=== PATIENT | female | born 1985 | race Caucasian/White ===

== ENCOUNTER 2018-03-24 16:06 | Emergency (ER) | payer OTHER, SELFPAY ==
[2018-03-24] MEDS ORDERED: PROMETHAZINE 25 MG/ML VIAL ONE (16:46)
[2018-03-24] MEDS ORDERED: NA CHLORIDE 0.9% 1,000 ML ONE (16:47)
[2018-03-24] MEDS ORDERED: MORPHINE 4 MG/ML SYR ONE (16:47)
[2018-03-24 17:01] LABS: Absolute Lymphocytes (CBC) 1.9 K/uL (0.7-4.9); Absolute Monocytes 0.5 K/uL (0.1-1.3); Absolute Neutrophil 4.9 K/uL (1.8-8.0); Basophils % 0.8 % (0-1.3); Eosinophils % 2.4 % (0-4.4); Hematocrit 38.7 % (36.0-45.0); Lymphocytes % 25.6 % (15.3-44.8); MCH 27.1 pg (27.0-35.0); MCV 81.6 fL (80-100); MPV 9.6 fL (7.6-11.3); RBC Red Blood Cell Count 4.74 M/uL (3.86-4.86)
[2018-03-24] MEDS ORDERED: DIPHENHYDRAMINE 25 MG TAB/CAP ONE (17:04)
[2018-03-24] MEDS ORDERED: METOCLOPRAMIDE 10 MG/2mL INJ ONE (17:05)
[2018-03-24] MEDS ORDERED: FENTANYL CITR 100 MCG/2 ML ONE (17:05)
[2018-03-24 17:15] LABS: ALT/SGPT 35 U/L (12-78); AST/SGOT 20 U/L (15-37); Albumin 3.5 g/dL (3.4-5.0); Alkaline Phosphatase 82 U/L (45-117); BUN Blood Urea Nitrogen 13 mg/dL (7-18); Bicarbonate 27 mmol/L (21-32); Bilirubin Direct < 0.1 mg/dL (0-0.2); Bilirubin Total 0.2 mg/dL (0.2-1.0); Glucose Level 90 mg/dL (74-106); Lipase 105 U/L (73-393); Potassium 3.8 mmol/L (3.5-5.1); Protein, Total 8.1 g/dL (6.4-8.2); Sodium Level 139 mmol/L (136-145)
[2018-03-24 17:34] LABS: Urine Blood 1+ (NEG); Urine Glucose NEGATIVE (NEG); Urine Protein NEGATIVE (NEG); Urine Specific Gravity 1.025 (1.005-1.030)
[2018-03-24 17:46] LABS: Urine Bacteria 20-50 /HPF (<20); Urine Culture Reflex Order NOT NEEDED; Urine Mucus 1+ /HPF (NONE SEEN)
--- NOTE | 2018-03-24 17:52 | RAD REPORT ---
EXAM DESCRIPTION: CT - Abdomen Pelvis W Contrast - 03/24/2018 5:44 pm CLINICAL HISTORY: Several day history of diffuse abdominal pain with nausea, vomiting and diarrhea COMPARISON: No comparison imaging available. Patient indicates CT and ultrasound done at [facility] on 4 days earlier with no acute finding TECHNIQUE: Biphasic, helical CT imaging of the abdomen and pelvis was performed following 100 ml non -ionic IV contrast. Oral contrast was given. All CT scans are performed using dose optimization technique as appropriate and may include automated exposure control or mA/KV adjustment according to patient size. FINDINGS: No suspicious findings in the lung bases. The liver, spleen, and pancreas show no suspicious findings. Gallbladder and biliary tree are also wi thout suspicious finding. Symmetric renal function is seen with no hydronephrosis or suspicious renal mass. No pyelonephritis o r acute renal parenchymal process. Renal glands are unremarkable. Uterus, ovaries and bladder show no suspicious findings. No dilated bowel loops or bowel wall thickening. No appendicitis. No free air, free fluid or inflamma tory stranding. No mass or bulky lymphadenopathy. Patient has a very small fat only umbilical hernia . No acute bone finding. IMPRESSION: Contrast enhanced CT abdomen and pelvis showing no significant or suspicious finding.
[2018-03-24] MEDS ORDERED: KETOROLAC 30 MG/ML INJ ONE (18:03)
--- NOTE | 2018-03-24 18:33 | ER ---
Nurse's Notes [facility] Name: Vivek Chino Age: 33 yrs Sex: Female : 1985 Arrival Date: 03/24/2018 Time: 16:08 Bed 20 Private MD: Diagnosis: Gastroenteritis;Migraine Presentation: 03/24 16:12 Presenting complaint: Patient states: Since Sunday I have had N/V/D, I went to [place] [id number] on Sunday and had a [address] but they couldn't tell me anything, now the pain is worse and I am having a headache that is worse than the abd pain. Transition of care: patient was not received from another setting of care. Onset of symptoms was March 24, 2018. Risk Assessment: Do you want to hurt yourself or someone else? Patient reports no desire to harm self or others. Initial Sepsis Screen: Does the patient meet any 2 criteria? No. Patient's initial sepsis screen is negative. Does the patient have a suspected source of infection? No. Patient's initial sepsis screen is negative. Care prior to arrival: None. 16:12 Method Of Arrival: Ambulatory la1 16:12 Acuity: CARI 3 la1 Historical: - Allergies: 16:13 No Known Allergies; la1 - PMHx: 16:13 None; la1 - PSHx: 16:13 ; la1 - Immunization history:: Adult Immunizations up to date. - Social history:: Smoking status: Patient/guardian denies using tobacco. - Ebola Screening: : No symptoms or risks identified at this time. Screenin:55 Abuse screen: Denies threats or abuse. Nutritional screening: No deficits noted. em Tuberculosis screening: No symptoms or risk factors identified. Fall Risk None identified. Assessment: 16:55 General: Appears distressed, uncomfortable, obese, well developed, well nourished, em Behavior is calm, cooperative, Reports fever for feeling ill for. Pain: Complains of pain in abdomen diffusely and head Pain currently is 10 out of 10 on a pain scale. Neuro: Level of Consciousness is awake, alert, obeys commands, Oriented to person, place, time, situation, Reports headache photophobia. Cardiovascular: Denies chest pain, Capillary refill < 3 seconds Patient's skin is warm and dry. Respiratory: Airway is patent Respiratory effort is even, unlabored, Respiratory pattern is regular. GI: Abdomen is obese, Bowel sounds present X 4 quads. Abd is soft X 4 quads Abdomen is tender to palpation X 4 quads. Reports diarrhea, nausea, vomiting. : Urine is clear. EENT: No signs and/or symptoms were reported regarding the EENT system. Derm: Skin is intact, Skin is pink, warm \T\ dry. Musculoskeletal: Range of motion: intact in all extremities. 17:00 General: The previous assessment is accurate, call light remains within reach. . ss 17:35 Reassessment: Patient appears in no apparent distress at this time. pt wheeled to CT em via wheelchair. 17:50 Reassessment: c/o headache, medications did not work, rates headache 10/10, provider em notified, new medications orders received. 18:33 Reassessment: Patient appears in no apparent distress at this time. Patient and/or em family updated on plan of care and expected duration. Pain level reassessed. Patient is alert, oriented x 3, equal unlabored respirations, skin warm/dry/pink. rates 5/10 Patient states symptoms have improved. Vital Signs: 16:13 BP 140 / 100; Pulse 81; Resp 16; Temp 97.6; Pulse Ox 98% on R/A; Weight 145.15 kg; la1 Height 5 ft. 4 in. (162.56 cm); 17:05 BP 123 / 75; Pulse 70; Resp 18; Pulse Ox 100% on R/A; Pain 10/10; em 18:22 BP 126 / 72; Pulse 75; Resp 16; Pulse Ox 99% on R/A; Pain 5/10; em 16:13 Body Mass Index 54.93 (145.15 kg, 162.56 cm) la1 ED Course: 16:08 Patient arrived in ED. as 16:13 Triage completed. la1 16:13 Arm band placed on left wrist. la1 16:14 Brady Sherwood LVN is Primary Nurse. em 16:14 Christian Silverio PA is PHCP. jr8 16:14 Adryan Iraheta MD is Attending Physician. jr8 16:55 Patient has correct armband on for positive identification. Placed in gown. Bed in low em position. Adult w/ patient. 17:00 Initial lab(s) drawn, by me, sent to lab. Urine collected: clean catch specimen, clear. em Inserted saline lock: 22 gauge in right antecubital area, using aseptic technique. Blood collected. 17:25 Note: NEG UPT,PER MARIANNE CLERICAL SECRETARY. bq 17:44 CT completed. Patient moved to CT via wheelchair. Patient moved back from CT. cw1 17:44 CT Abd/Pelvis - W/Contrast In Process Unspecified. EDMS 18:32 Cedric Yung MD is Referral Physician. jr8 18:43 No provider procedures requiring assistance completed. IV discontinued, intact, em bleeding controlled, No redness/swelling at site. Pressure dressing applied. Administered Medications: 16:53 CANCELLED (Physician Discretion): Phenergan 12.5 mg IVP once jr8 16:53 Not Given (Physician Discretion): morphine 2 mg IVP once jr8 16:55 Drug: NS 0.9% 1000 ml Route: IV; Rate: 1000 ml; Site: right antecubital; em 18:46 Follow up: IV Status: Completed infusion; IV Intake: 1000ml em 17:02 Drug: fentaNYL (PF) 50 mcg Route: IVP; Site: right antecubital; ss 18:01 Follow up: Response: No adverse reaction; Pain is unchanged, physician notified em 17:02 Drug: Reglan 10 mg Route: IVP; Site: right antecubital; ss 18:02 Follow up: Response: No adverse reaction em 17:09 Drug: Benadryl 25 mg Route: PO; em 18:01 Follow up: Response: No adverse reaction em 18:01 Drug: TORadol 30 mg Route: IVP; Site: right antecubital; ss 18:33 Follow up: Response: No adverse reaction; Pain is decreased em Intake: 18:46 IV: 1000ml; Total: 1000ml. em Outcome: 18:32 Discharge ordered by . jr8 18:45 Discharged to home ambulatory, with family. em 18:45 Condition: good 18:45 Discharge instructions given to patient, family, Instructed on discharge instructions, follow up and referral plans. medication usage, Demonstrated understanding of instructions, follow-up care, medications, Prescriptions given X 3. 18:46 Patient left the ED. em Signatures: Dispatcher [employer] EDMS Rosette Trejo bq Brady Sherwood, THREAD MARKER THREAD MARKER Jo Eckert Shelby, RN RN ss Jocy Hoffman cw1 Christian Silverio PA PA jr8 Carroll Monsalve RN RN la1
--- NOTE | 2018-03-24 18:34 | EDPHYS ---
Physician Documentation [facility] Name: Vivek Chino Age: 33 yrs Sex: Female : 1985 Arrival Date: 03/24/2018 Time: 16:08 Bed 20 Private MD: ED Physician Adryan Iraheta HPI: 03/24 16:59 This 33 yrs old Female presents to ER via Ambulatory with complaints of jr8 Abdominal Pain, Nausea/Vomiting/Diarrhea. 16:59 The patient presents with abdominal pain that is diffuse. Onset: The symptoms/episode jr8 began/occurred acutely, 1 week(s) ago. The symptoms do not radiate. Associated signs and symptoms: Pertinent positives: nausea, vomiting, and diarrhea. The symptoms are described as crampy. Modifying factors: The symptoms are alleviated by nothing, the symptoms are aggravated by food. Severity of pain: At its worst the pain was moderate in the emergency department the pain is unchanged. The patient has not experienced similar symptoms in the past. The patient has been recently seen by a physician:. Seen at [place] ED and had blood work, CT, and US completed with no acute findings. Given tramadol and zofran for pain and nausea. Came to ED today for continued symptoms. Denies recent travel or sick contacts . Historical: - Allergies: 16:13 No Known Allergies; la1 - PMHx: 16:13 None; la1 - PSHx: 16:13 ; la1 - Immunization history:: Adult Immunizations up to date. - Social history:: Smoking status: Patient/guardian denies using tobacco. - Ebola Screening: : No symptoms or risks identified at this time. ROS: 16:59 Eyes: Negative for injury, pain, redness, and discharge, ENT: Negative for injury, jr8 pain, and discharge, Neck: Negative for injury, pain, and swelling, Cardiovascular: Negative for chest pain, palpitations, and edema, Respiratory: Negative for shortness of breath, cough, wheezing, and pleuritic chest pain, Back: Negative for injury and pain, MS/Extremity: Negative for injury and deformity, Skin: Negative for injury, rash, and discoloration, Neuro: Negative for headache, weakness, numbness, tingling, and seizure. 16:59 Abdomen/GI: Positive for abdominal pain, nausea, vomiting, and diarrhea, abdominal cramps, Negative for abdominal distension, anorexia, dysphagia, hematemesis, black/tarry stool, rectal pain, rectal bleeding, bowel incontinence, flatulence. Exam: 17:00 Eyes: Pupils equal round and reactive to light, extra-ocular motions intact. Lids and jr8 lashes normal. Conjunctiva and sclera are non-icteric and not injected. Cornea within normal limits. Periorbital areas with no swelling, redness, or edema. ENT: Nares patent. No nasal discharge, no septal abnormalities noted. Tympanic membranes are normal and external auditory canals are clear. Oropharynx with no redness, swelling, or masses, exudates, or evidence of obstruction, uvula midline. Mucous membranes moist. Neck: Trachea midline, no thyromegaly or masses palpated, and no cervical lymphadenopathy. Supple, full range of motion without nuchal rigidity, or vertebral point tenderness. No Meningismus. Cardiovascular: Regular rate and rhythm with a normal S1 and S2. No gallops, murmurs, or rubs. Normal PMI, no JVD. No pulse deficits. Respiratory: Lungs have equal breath sounds bilaterally, clear to auscultation and percussion. No rales, rhonchi or wheezes noted. No increased work of breathing, no retractions or nasal flaring. Back: No spinal tenderness. No costovertebral tenderness. Full range of motion. Skin: Warm, dry with normal turgor. Normal color with no rashes, no lesions, and no evidence of cellulitis. MS/ Extremity: Pulses equal, no cyanosis. Neurovascular intact. Full, normal range of motion. Neuro: Awake and alert, GCS 15, oriented to person, place, time, and situation. Cranial nerves II-XII grossly intact. Motor strength 5/5 in all extremities. Sensory grossly intact. Cerebellar exam normal. Normal gait. 17:00 Abdomen/GI: Inspection: obese Bowel sounds: active, all quadrants, Palpation: soft, in all quadrants, moderate abdominal tenderness, in the abdomen diffusely, mass, is not appreciated, rebound tenderness, is not appreciated, voluntary guarding, is not appreciated, involuntary guarding, is not appreciated, no appreciated organomegaly, Indicators: McBurney's point is not tender, Alonso's sign is negative, Rovsing's sign is negative, Liver: tenderness, is not appreciated. Vital Signs: 16:13 BP 140 / 100; Pulse 81; Resp 16; Temp 97.6; Pulse Ox 98% on R/A; Weight 145.15 kg; la1 Height 5 ft. 4 in. (162.56 cm); 17:05 BP 123 / 75; Pulse 70; Resp 18; Pulse Ox 100% on R/A; Pain 10/10; em 18:22 BP 126 / 72; Pulse 75; Resp 16; Pulse Ox 99% on R/A; Pain 5/10; em 16:13 Body Mass Index 54.93 (145.15 kg, 162.56 cm) la1 MDM: 16:14 Patient medically screened. jr8 18:31 Differential diagnosis: bowel obstruction, cholecystitis, Cholelithiasis, jr8 diverticulitis, gastritis, gastroesophageal reflux disease, non-specific abd pain, pancreatitis, Peritonitis, urinary tract infection, gastroenteritis, colitis. Data reviewed: vital signs, nurses notes, lab test result(s), radiologic studies, CT scan. Data interpreted: Pulse oximetry: on room air is 100 %. Interpretation: normal. Counseling: I had a detailed discussion with the patient and/or guardian regarding: the historical points, exam findings, and any diagnostic results supporting the discharge/admit diagnosis, lab results, radiology results, the need for outpatient follow up, a ruby engineer, to return to the emergency department if symptoms worsen or persist or if there are any questions or concerns that arise at home. Response to treatment: the patient's symptoms have markedly improved after treatment, patient is well hydrated. 03/24 16:29 Order name: Basic Metabolic Panel; Complete Time: 17:16 03/24 16:29 Order name: CBC with Diff; Complete Time: 17:16 03/24 16:29 Order name: Creatinine for Radiology; Complete Time: 17:16 03/24 16:29 Order name: Hepatic Function; Complete Time: 17:16 03/24 16:29 Order name: Lipase; Complete Time: 17:16 03/24 17:23 Order name: Urine Microscopic Only; Complete Time: 17:49 ss 03/24 17:17 Order name: CT Abd/Pelvis - W/Contrast; Complete Time: 17:53 8 03/24 17:24 Order name: Urine Dipstick--Ancillary (enter results); Complete Time: 17:49 em1 03/24 17:24 Order name: Urine --Ancillary (enter results); Complete Time: 17:49 [facility] 03/24 16:29 Order name: IV Saline Lock; Complete Time: 16:56 [facility] 03/24 16:29 Order name: Labs collected and sent; Complete Time: 16:56 [facility] 03/24 17:17 Order name: Urine Test (obtain specimen); Complete Time: 17:20 [facility] 03/24 17:17 Order name: Urine Dipstick-Ancillary (obtain specimen); Complete Time: 17:20 [facility] Administered Medications: 16:53 CANCELLED (Physician Discretion): Phenergan 12.5 mg IVP once 16:53 Not Given (Physician Discretion): morphine 2 mg IVP once 8 16:55 Drug: NS 0.9% 1000 ml Route: IV; Rate: 1000 ml; Site: right antecubital; em 18:46 Follow up: IV Status: Completed infusion; IV Intake: 1000ml em 17:02 Drug: fentaNYL (PF) 50 mcg Route: IVP; Site: right antecubital; ss 18:01 Follow up: Response: No adverse reaction; Pain is unchanged, physician notified em 17:02 Drug: Reglan 10 mg Route: IVP; Site: right antecubital; ss 18:02 Follow up: Response: No adverse reaction em 17:09 Drug: Benadryl 25 mg Route: PO; em 18:01 Follow up: Response: No adverse reaction em 18:01 Drug: TORadol 30 mg Route: IVP; Site: right antecubital; ss 18:33 Follow up: Response: No adverse reaction; Pain is decreased em Disposition: 18:54 Co-signature as Attending Physician, Adryan Iraheta MD I agree with the assessment and kdr plan of care. Disposition: 03/24/18 18:32 Discharged to Home. Impression: Gastroenteritis, Migraine. - Condition is Stable. - Discharge Instructions: Migraine Headache. - Prescriptions for Fioricet 50- 325-40 mg Oral tablet - take 2 tablet by ORAL route every 4 hours as needed not to exceed 6 tablets per 24hrs; 20 tablet. Cipro 500 mg Oral Tablet - take 1 tablet by ORAL route every 12 hours for 10 days; 20 tablet. Flagyl 500 mg Oral Tablet - take 1 tablet by ORAL route every 6 hours for 10 days; 40 tablet. - Medication Reconciliation Form, Thank You Letter, Antibiotic Education, Prescription Opioid Use form. - Follow up: Cedric Yung MD; When: 5 - 6 days; Reason: Recheck today's complaints, Continuance of care, Re-evaluation by your physician. - Problem is new. - Symptoms have improved. Signatures: Dispatcher [employer] EDMS Adryan Iraheta MD MD kdr Brady Sherwood, MUSEUM CURATOR MUSEUM CURATOR em Cathy Seals RN RN ss Christian Silverio PA PA jr8 Carroll Monsalve RN RN la1 Corrections: (The following items were deleted from the chart) 16:53 16:37 Phenergan 12.5 mg IVP once ordered. jr8 jr8 17:00 16:59 Seen at [place] ED and had blood work, CT, and US completed with no acute jr8 findings. Given tramadol and zofran for pain and nausea. Came to ED today for continued symptoms . jr8 18:46 18:32 03/24/2018 18:32 Discharged to Home. Impression: Gastroenteritis; Migraine. em Condition is Stable. Forms are Medication Reconciliation Form, Thank You Letter, Antibiotic Education, Prescription Opioid Use. Follow up: Cedric Yung; When: 5 - 6 days; Reason: Recheck today's complaints, Continuance of care, Re-evaluation by your physician. Problem is new. Symptoms have improved. jr8
== END 2018-03-24 18:46 | disposition home or self-care (01) ==
LOC: ER 16:06
DX: K52.9 Noninfective gastroenteritis and colitis, unspecified (principal); G43.909 Migraine, unspecified, not intractable, without status migrainosus
CPT/HCPCS: 36415; 74177; 80048; 80076; 81003; 81015; 81025; 83690; 85025; 96361; 96374; 96375; 99284; J2550; J2765; J3010; J7030; Q9967

== ENCOUNTER 2022-03-01 19:15 | Inpatient (IN) | payer SELFPAY ==
--- OUTSIDE RECORDS SUMMARY | 2022-03-01 19:20 | XMS REPORT | Continuity of Care Document ---
:1985 Author Organization [facility] t Address [address] [place] [address] Care Team Providers Name Role Phone Pcp, Patient Does Not Have A Primary Care Physician +[id number] JULIANA RIZO Attending Clinician Unavailable Juliana Arevalo Attending Clinician Doctor Unassigned, [place] Attending Clinician Unavailable ARTURO LOZANO Attending Clinician Unavailable Arturo Lozano MD Attending Clinician Jessica Rojas DO Attending Clinician [place] RN Attending Clinician Unavailable Arjun Bragg Attending Clinician ARJUN CLARKE Attending Clinician Unavailable Fabiano Guerrero MD Attending Clinician Problems Condition Condition Condition Status Onset Resolution Last Treating Co mments Source Name Details Category Date Date Treatment Clinician Date No known No known Disease Unive rs active active ity of problems problems [facility] [place] Allergies, Adverse Reactions, Alerts Allergy Allergy Status Severity Reaction(s) Onset Inactive Treating Comm ents Source Name Type Date Date Clinician CLINDAMY DRUG Active Med SOB Univers KHUSHI INGREDI -11 ity of 00:00: [place] 00 Medical Branch LEVOFLOX DRUG Active Other-Cmnt Univ ers ACIN INGREDI - ity of 00:00: Medical Branch Clindamy Drug Active Shortness of Un jovon khushi Allergy Breath 09-28 ity of 00:00: Medical Branch Levoflox Propensi Active Other - See U nivers acin ty to comments 09-28 ity of adverse 00:00: [place] reaction Medical s Branch Social History Social Habit Start Date Stop Date Quantity Comments Source Exposure to 2022-01-26 2022-02-05 Not sure [facility] SARS-CoV-2 (event) 00:00:00 16:37:00 Medica l Branch Sex Ass[birth year] At [birth year] [facility] 00:00:00 00:00:00 Medical Branch Smoking Status Start Date Stop Date Source Tobacco smoking consumption [facility] Medical unknown Branch Medications Ordered Filled Start Stop Current Ordering Indication Dosage Frequency Signature Comments Components Source Medication Medication Date Date Medication? Clinician (SIG) Name Name maalox:diph 2021- No 15mL 15 mL, Uni vers enhydrAMINE 07-09 Oral, ity of :lidocaine 07:45: 06:52 ONCE, 1 [place] as 2 % viscous 00 :00 dose, On Medi yelena 1:1:1 Sat Branch ([facility] 07/09/21 at [facility]) 0145, oral Routine suspension 15 mL dexamethaso 2021- No 10mg 10 mg, Uni vers ne 07-09 Intramuscu ity of (DECADRON 07:45: 06:52 lar, ONCE, [place] PHOSPHATE) 00 :00 1 dose, On Med ical injection Sat Branch 10 mg 07/09/21 at 0145, STAT ketorolac 2021- No 60mg 60 mg, Unive rs (TORADOL) 07-09 Intramuscu ity of injection 07:45: 06:53 lar, ONCE, [place] 60 mg 00 :00 1 dose, On Medical Sat Branch 07/09/21 at 0145, JOHN predniSONE 2021- No [id number] 40mg Take 2 U nivers 20 mg 2-19 02-23 tablets by ity of tablet 00:00: 05:59 mouth [place] 00 :00 daily for Medical 3 days. Branch diphenhydrA No 25mg 25 mg, Uni vers MINE 06-29 Slow IV ity of (BENADRYL) 12:00: 11:07 Push, [place] injection 00 :00 ONCE, 1 Medical 25 mg dose, On Branch Sun06/29/21 at 0600, STAT metoclopram No 10mg 10 mg, Uni vers rai HCl 06-29 Slow IV ity of (REGLAN) 12:00: 11:07 Push, [place] injection 00 :00 ONCE, 1 Medical 10 mg dose, On Branch Sun06/29/21 at 0600, JOHN ketorolac No 30mg 30 mg, Unive rs (TORADOL) 06-29 Slow IV ity of injection 12:00: 11:07 Push, [place] 30 mg 00 :00 ONCE, 1 Medical dose, On Branch Sun06/29/21 at 0600, Routine
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 butalbital- Yes [id number] 1{tbl} Take 1 Univers acetaminoph 2-09 tablet by ity of en-caff 00:00: mouth [place] 50-325-40 00 every 4 Medical mg tablet (four) Branch hours as needed for Pain (scale 7-10) (HEADACHE) . butalbital- Yes [id number] 1{tbl} Take 1 Univers acetaminoph 2-09 tablet by ity of en-caff 00:00: mouth [place] 50-325-40 00 every 4 Medical mg tablet (four) Branch hours as needed for Pain (scale 7-10) (HEADACHE) . butalbital- Yes [id number] 1{tbl} Take 1 Univers acetaminoph 2-09 tablet by ity of en-caff 00:00: mouth [place] 50-325-40 00 every 4 Medical mg tablet (four) Branch hours as needed for Pain (scale 7-10) (HEADACHE) . albuterol Yes [id number] 2{puff} Inhale 2 Univers 90 9-12 Puffs ity of mcg/actuati 00:00: every 4 [place] as on inhaler 00 (four) Medical hours as Branch needed for Wheezing or Shortness of Breath. benzonatate Yes [id number] 100mg Take 1 Univers 100 mg 9-12 capsule by ity of capsule 00:00: mouth 3 00 (three) Medical times Branch daily as needed for Cough. bromphenira 0 Yes [id number] 5mL Take 5 mL Univers mine-pseudo 9-12 by mouth 4 it y of ephedrine-D 00:00: (four) [place] M (BROMFED 00 times Medical DM) 2-30-10 daily as Bran ch mg/5 mL needed for syrup Congestion /Allergies . albuterol Yes [id number] 2{puff} Inhale 2 Univers 90 9-12 Puffs ity of mcg/actuati 00:00: every 4 [place] as on inhaler 00 (four) Medical hours as Branch needed for Wheezing or Shortness of Breath. benzonatate 0 Yes [id number] 100mg Take 1 Univers 100 mg 9-12 capsule by ity of capsule 00:00: mouth 3 [place] 00 (three) Medical times Branch daily as needed for Cough. bromphenira 0 Yes [id number] 5mL Take 5 mL Univers mine-pseudo 9-12 by mouth 4 it y of ephedrine-D 00:00: (four) [place] M (BROMFED 00 times Medical DM) 2-30-10 daily as Bran ch mg/5 mL needed for syrup Congestion /Allergies . albuterol 0 Yes [id number] 2{puff} Inhale 2 Univers 90 9-12 Puffs ity of mcg/actuati 00:00: every 4 [place] as on inhaler 00 (four) Medical hours as Branch needed for Wheezing or Shortness of Breath. benzonatate 0 Yes [id number] 100mg Take 1 Univers 100 mg 9-12 capsule by ity of capsule 00:00: mouth 3 [place] 00 (three) Medical times Branch daily as needed for Cough. bromphenira 0 Yes [id number] 5mL Take 5 mL Univers mine-pseudo 9-12 by mouth 4 it y of ephedrine-D 00:00: (four) [place] M (BROMFED 00 times Medical DM) 2-30-10 daily as Bran ch mg/5 mL needed for syrup Congestion /Allergies . albuterol 2020-0 Yes [id number] 2{puff} Inhale 2 Univers 90 9-12 Puffs ity of mcg/actuati 00:00: every 4 [place] as on inhaler 00 (four) Medical hours as Branch needed for Wheezing or Shortness of Breath. benzonatate 0 Yes [id number] 100mg Take 1 Univers 100 mg 9-12 capsule by ity of capsule 00:00: mouth (three) Medical times Branch daily as needed for Cough. albuterol 0 Yes [id number] 2{puff} Inhale 2 Univers 90 9-12 Puffs ity of mcg/actuati 00:00: every 4 [place] as on inhaler 00 (four) Medical hours as Branch needed for Wheezing or Shortness of Breath. benzonatate 0 Yes [id number] 100mg Take 1 Univers 100 mg 9-12 capsule by ity of capsule 00:00: mouth (three) Medical times Branch daily as needed for Cough. albuterol 0 Yes [id number] 2{puff} Inhale 2 Univers 90 9-12 Puffs ity of mcg/actuati 00:00: every 4 [place] as on inhaler 00 (four) Medical hours as Branch needed for Wheezing or Shortness of Breath. benzonatate 2020-0 Yes [id number] 100mg Take 1 Univers 100 mg 9-12 capsule by ity of capsule 00:00: mouth (three) Medical times Branch daily as needed for Cough. bromphenira 2020-0 Yes [id number] 5mL Take 5 mL Univers mine-pseudo 9-12 by mouth 4 it y of ephedrine-D 00:00: (four) [place] (BROMFED 00 times Medical DM) 2-30-10 daily as Bran ch mg/5 mL needed for syrup Congestion /Allergies . bromphenira 2020-0 2022- No [id number] 5mL Take 5 mL Univers mine-pseudo 12 02-19 by mouth 4 i ty of ephedrine-D 00:00: 00:00 (four) [place] as M (BROMFED 00 :00 times Medical DM) 2-30-10 daily as Bran ch mg/5 mL needed for syrup Congestion /Allergies . amoxicillin Yes 1{tbl} 1 tablet, Univers -clavulanat 6-25 Oral, ity of e 13:00: Q12H, [place] (AUGMENTIN) 00 First dose Me dical 875-125 mg on Sun Branch per tablet 11/12/20 at 1 tablet 0800, Until Discontinu ed, Routine
Reason for Anti-Infec tive: Documented Infection< br>Documen [place] Infection Site: Abdominal< br>Duratio n of Therapy: Other (see Comments) HYDROcodone 2020- No 1{tbl} 1 tablet, Univers -acetaminop 11-12 06-25 Oral, ity of hen (NORCO) 06:00: 05:14 ONCE, 1 [place] 10-325 mg 00 :00 dose, Fri Medic al tablet 1 11/12/[address] [facility] h tablet 0100, Routine iopamidol 2020- No [id number] 120mL 120 mL, Univers (ISOVUE - 06-25 Intravenou ity o f 370-500 mL) 05:15: 03:56 s, ONCE, 1 [place] injection 00 :00 dose, Fri Medic al 120 mL 11/12/20 at Branch 0015, Routine FENTanyl PF 2020- No 100ug 100 mcg, Univers (SUBLIMAZE - 06-25 Intravenou it y of (PF)) 04:00: 03:47 s, ONCE, 1 [place] injection 00 :00 dose, [place] Medic al 100 mcg 11/11/20 at Branch 2300, Routine sodium Yes 5mL 5 mL, Univers chloride 6-25 Intravenou ity o f (NS) 00:55: s, PRN, [place] injection 5 54 Starting Medi yelena mL [place] Branch 11/11/20 at 1955, Until Discontinu ed, Routine, IV line flushing amoxicillin Yes [id number] 1{tbl} Take 1 Univers -clavulanat 6-24 tablet by ity of e 875-125 00:00: mouth [place] mg per 00 every 12 Medical tablet (twelve) Branch hours. traMADoL Yes [id number] 50mg Take 1 Univers (ULTRAM) 50 6-24 tablet by ity of mg tablet 00:00: mouth [place] 00 every 6 Medical (six) Branch hours as needed for Pain (scale 7-10). Indication s: acute pain ondansetron Yes [id number] 4mg Take 1 Univers (ZOFRAN) 4 6-24 tablet by ity of mg tablet 00:00: mouth [place] 00 every 8 Medical (eight) Branch hours as needed for Nausea and Vomiting (N/V). amoxicillin 2020- No [id number] 1{tbl} Take 1 Univers -clavulanat 6-24 09-12 tablet by it y of e 875-125 00:00: 00:00 mouth [place] mg per 00 :00 every 12 Medical tablet (twelve) Branch hours. traMADoL 2020- No [id number] 50mg Take 1 Univer s (ULTRAM) 50 6-24 09-12 tablet by it y of mg tablet 00:00: 00:00 mouth [place] 00 :00 every 6 Medical (six) Branch hours as needed for Pain (scale 7-10). Indication s: acute pain ondansetron 2020- No [id number] 4mg Take 1 Univers (ZOFRAN) 4 6-24 09-12 tablet by ity of mg tablet 00:00: 00:00 mouth [place] 00 :00 every 8 Medical (eight) Branch hours as needed for Nausea and Vomiting (N/V). amoxicillin 2020- No [id number] 1{tbl} Take 1 Univers -clavulanat 6-24 09-12 tablet by it y of e 875-125 00:00: 00:00 mouth [place] mg per 00 :00 every 12 Medical tablet (twelve) Branch hours. traMADoL 2020- No [id number] 50mg Take 1 Univer s (ULTRAM) 50 6-24 09-12 tablet by it y of mg tablet 00:00: 00:00 mouth [place] 00 :00 every 6 Medical (six) Branch hours as needed for Pain (scale 7-10). Indication s: acute pain ondansetron 2020- No [id number] 4mg Take 1 Univers (ZOFRAN) 4 11-11-12 tablet by ity of mg tablet 00:00: 00:00 mouth [place] 00 :00 every 8 Medical (eight) Branch hours as needed for Nausea and Vomiting (N/V). ondansetron 2019- No 4mg 4 mg, Slow Univers (ZOFRAN 01-11 IV Push, ity of (PF)) 00:45: 00:43 ONCE, 1 [place] injection 4 00 :00 dose, [place] Med ical mg 01/11/20 at Branch 1945, JOHN ketorolac 2019- No 15mg 15 mg, Unive rs (TORADOL) 01-11 Slow IV ity of injection 00:45: 00:43 Push, [place] 15 mg 00 :00 ONCE, 1 Medical dose, [facility] 01/11/20 at 1945, JOHN
Fa culty member approving Restricted medication : FABIANO GUERRERO NaCl 0.9% 2019- No 1000mL at 999 Uni vers (NS) bolus 01-10 mL/hr, ity of infusion 23:30: 02:22 1,000 mL, Ra[place] as 1,000 mL 00 :00 IV Medical Infusion, [place] ONCE, 1 dose, [place] 01/11/20 at 1830, JOHN ibuprofen 2019-0 Yes [id number] 800mg Take 1 Univers 800 mg 8-23 tablet by ity of tablet 00:00: mouth 00 every 8 Medical (eight) Branch hours as needed for Pain (scale 4-6). ibuprofen 2019-0 Yes [id number] 800mg Take 1 Univers 800 mg 8-23 tablet by ity of tablet 00:00: mouth [place] 00 every 8 Medical (eight) Branch hours as needed for Pain (scale 4-6). ibuprofen 2020-0 Yes [id number] 800mg Take 1 Univers 800 mg 8-23 tablet by ity of tablet 00:00: mouth [place] 00 every 8 Medical (eight) Branch hours as needed for Pain (scale 4-6). ibuprofen 2019-2020- No [id number] 800mg Take 1 Univers 800 mg 8-23 -12 tablet by ity of tablet 00:00: 00:00 mouth [place] 00 :00 every 8 Medical (eight) Branch hours as needed for Pain (scale 4-6). ibuprofen 2020- No [id number] 800mg Take 1 Univers 800 mg 01-10-12 tablet by ity of tablet 00:00: 00:00 mouth [place] 00 :00 every 8 Medical (eight) Branch hours as needed for Pain (scale 4-6). acetaminoph 2019- No [id number] 1{tbl} Take 1 U nivers en-codeine 01-10 tablet by ity of (TYLENOL-CO 00:00: 04:59 mouth [place] DEINE #3) 00 :00 every 6 Medical 300-30 mg (six) Branch tablet hours as needed for Pain (scale 7-10) for up to 7 days. Indication s: acute pain ibuprofen Yes [id number] 800mg Take 1 Univers 800 mg 9-11 tablet by ity of tablet 00:00: mouth [place] 00 every 8 Medical (eight) Branch hours. ibuprofen Yes [id number] 800mg Take 1 Univers 800 mg 9-11 tablet by ity of tablet 00:00: mouth [place] 00 every 8 Medical (eight) Branch hours. ibuprofen Yes [id number] 800mg Take 1 Univers 800 mg 9-11 tablet by ity of tablet 00:00: mouth [place] 00 every 8 Medical (eight) Branch hours. ibuprofen Yes [id number] 800mg Take 1 Univers 800 mg 9-11 tablet by ity of tablet 00:00: mouth [place] 00 every 8 Medical (eight) Branch hours. ibuprofen 2020- No [id number] 800mg Take 1 Univers 800 mg 9-11 09-12 tablet by ity of tablet 00:00: 00:00 mouth [place] 00 :00 every 8 Medical (eight) Branch hours. ibuprofen 2020- No [id number] 800mg Take 1 Univers 800 mg 9-11 09-12 tablet by ity of tablet 00:00: 00:00 mouth [place] 00 :00 every 8 Medical (eight) Branch hours. traMADOL 2018- Yes [id number] 50mg Take 1 Un jovon (ULTRAM) 50 5-11 tablet by ity of mg tablet 00:00: mouth [place] 00 every 6 Medical (six) Branch hours as needed for Pain (scale 4-6). maalox/diph 2019-0 Yes [id number] 10mL Take 10 mL Univers enhydrAMINE 5-11 by mouth 4 it y of :lidocaine2 00:00: (four) [place] % viscous 00 times Medical 1:1:1 Susp daily as Branc h suspension needed for Oral mucositis. Rinse and Spit before meals and bedtime. traMADOL 2019-0 Yes [id number] 50mg Take 1 Un jovon (ULTRAM) 50 5-11 tablet by ity of mg tablet 00:00: mouth [place] 00 every 6 Medical (six) Branch hours as needed for Pain (scale 4-6). maalox/diph 2019-0 Yes [id number] 10mL Take 10 mL Univers enhydrAMINE 5-11 by mouth 4 it y of :lidocaine2 00:00: (four) [place] % viscous 00 times Medical 1:1:1 Susp daily as Branc h suspension needed for Oral mucositis. Rinse and Spit before meals and bedtime. traMADOL 2019-0 Yes [id number] 50mg Take 1 Un jovon (ULTRAM) 50 5-11 tablet by ity of mg tablet 00:00: mouth [place] 00 every 6 Medical (six) Branch hours as needed for Pain (scale 4-6). maalox/diph 2019-0 Yes [id number] 10mL Take 10 mL Univers enhydrAMINE 5-11 by mouth 4 it y of :lidocaine2 00:00: (four) [place] % viscous 00 times Medical 1:1:1 Susp daily as Branc h suspension needed for Oral mucositis. Rinse and Spit before meals and bedtime. traMADOL 2019-0 Yes [id number] 50mg Take 1 Un jovon (ULTRAM) 50 5-11 tablet by ity of mg tablet 00:00: mouth [place] 00 every 6 Medical (six) Branch hours as needed for Pain (scale 4-6). maalox/diph 2019-0 Yes [id number] 10mL Take 10 mL Univers enhydrAMINE 5-11 by mouth 4 it y of :lidocaine2 00:00: (four) [place] % viscous 00 times Medical 1:1:1 Susp daily as Branc h suspension needed for Oral mucositis. Rinse and Spit before meals and bedtime. traMADOL 2019-0 Yes [id number] 50mg Take 1 Un jovon (ULTRAM) 50 5-11 tablet by ity of mg tablet 00:00: mouth [place] 00 every 6 Medical (six) Branch hours as needed for Pain (scale 4-6). maalox/diph Yes [id number] 10mL Take 10 mL Univers enhydrAMINE 5-11 by mouth 4 it y of :lidocaine2 00:00: (four) [place] % viscous 00 times Medical 1:1:1 Susp daily as Branc h suspension needed for Oral mucositis. Rinse and Spit before meals and bedtime. traMADOL 2020- No [id number] 50mg Take 1 U nivers (ULTRAM) 50 5-11 09-12 tablet by it y of mg tablet 00:00: 00:00 mouth [place] 00 :00 every 6 Medical (six) Branch hours as needed for Pain (scale 4-6). maalox/diph 2020- No [id number] 10mL Take 10 mL Univers enhydrAMINE 5-11 -12 by mouth 4 i ty of :lidocaine2 00:00: 00:00 (four) [place] as % viscous 00 :00 times Medical 1:1:1 Susp daily as Branc h suspension needed for Oral mucositis. Rinse and Spit before meals and bedtime. traMADOL 2020- No [id number] 50mg Take 1 U nivers (ULTRAM) 50 5-11 09-12 tablet by it y of mg tablet 00:00: 00:00 mouth [place] 00 :00 every 6 Medical (six) Branch hours as needed for Pain (scale 4-6). maalox/diph 2020- No [id number] 10mL Take 10 mL Univers enhydrAMINE 5-11 09-12 by mouth 4 i ty of :lidocaine2 00:00: 00:00 (four) [place] as % viscous 00 :00 times Medical 1:1:1 Susp daily as Branc h suspension needed for Oral mucositis. Rinse and Spit before meals and bedtime. ondansetron 2017-05 Yes 4mg Take 1 Univ ers (ZOFRAN) 4 0-31 tablet by ity of mg tablet 00:00: mouth [place] 00 every 8 Medical (eight) Branch hours as needed for Nausea and Vomiting (N/V). ondansetron 2017- Yes 4mg Take 1 Univ ers (ZOFRAN) 4 0-31 tablet by ity of mg tablet 00:00: mouth [place] 00 every 8 Medical (eight) Branch hours as needed for Nausea and Vomiting (N/V). ondansetron 2017- Yes 4mg Take 1 Univ ers (ZOFRAN) 4 0-31 tablet by ity of mg tablet 00:00: mouth [place] 00 every 8 Medical (eight) Branch hours as needed for Nausea and Vomiting (N/V). ondansetron 2017- Yes 4mg Take 1 Univ ers (ZOFRAN) 4 0-31 tablet by ity of mg tablet 00:00: mouth [place] 00 every 8 Medical (eight) Branch hours as needed for Nausea and Vomiting (N/V). ondansetron 2017- Yes 4mg Take 1 Univ ers (ZOFRAN) 4 0-31 tablet by ity of mg tablet 00:00: mouth [place] 00 every 8 Medical (eight) Branch hours as needed for Nausea and Vomiting (N/V). ondansetron 2017-05- No 4mg Take 1 Uni vers (ZOFRAN) 4 0-31 09-12 tablet by ity of mg tablet 00:00: 00:00 mouth [place] 00 :00 every 8 Medical (eight) Branch hours as needed for Nausea and Vomiting (N/V). ondansetron 2017-05- No 4mg Take 1 Uni vers (ZOFRAN) 4 0-31 09-12 tablet by ity of mg tablet 00:00: 00:00 mouth [place] 00 :00 every 8 Medical (eight) Branch hours as needed for Nausea and Vomiting (N/V). amoxicillin 2018-0 Yes 500mg Take 1 Uni vers 500 mg 6-21 capsule by ity of capsule 00:00: mouth 3 [place] 00 (three) Medical times Branch daily. ibuprofen 2018-0 Yes 800mg Take 1 Unive rs 800 mg 6-21 tablet by ity of tablet 00:00: mouth [place] 00 every 8 Medical (eight) Branch hours. amoxicillin 2018-0 Yes 500mg Take 1 Uni vers 500 mg 6-21 capsule by ity of capsule 00:00: mouth 3 [place] 00 (three) Medical times Branch daily. ibuprofen 2018-0 Yes 800mg Take 1 Unive rs 800 mg 6-21 tablet by ity of tablet 00:00: mouth [place] 00 every 8 Medical (eight) Branch hours. amoxicillin 2018-0 Yes 500mg Take 1 Uni vers 500 mg 6-21 capsule by ity of capsule 00:00: mouth 3 [place] 00 (three) Medical times Branch daily. ibuprofen 2018-0 Yes 800mg Take 1 Unive rs 800 mg 6-21 tablet by ity of tablet 00:00: mouth [place] 00 every 8 Medical (eight) Branch hours. amoxicillin 2018-0 Yes 500mg Take 1 Uni vers 500 mg 6-21 capsule by ity of capsule 00:00: mouth 3 [place] 00 (three) Medical times Branch daily. ibuprofen 2018-0 Yes 800mg Take 1 Unive rs 800 mg 6-21 tablet by ity of tablet 00:00: mouth [place] 00 every 8 Medical (eight) Branch hours. amoxicillin 2018-0 Yes 500mg Take 1 Uni vers 500 mg 6-21 capsule by ity of capsule 00:00: mouth 3 [place] 00 (three) Medical times Branch daily. ibuprofen 2018-0 Yes 800mg Take 1 Unive rs 800 mg 6-21 tablet by ity of tablet 00:00: mouth [place] 00 every 8 Medical (eight) Branch hours. amoxicillin 2018-0 2021- No 500mg Take 1 Un jovon 500 mg 6-21 09-12 capsule by ity of capsule 00:00: 00:00 mouth 3 [place] 00 :00 (three) Medical times Branch daily. ibuprofen 2018-0 2021- No 800mg Take 1 Univ ers 800 mg 6-21 09-12 tablet by ity of tablet 00:00: 00:00 mouth [place] 00 :00 every 8 Medical (eight) Branch hours. amoxicillin 2018-0 2021- No 500mg Take 1 Un jovon 500 mg 6-21 09-12 capsule by ity of capsule 00:00: 00:00 mouth 3 [place] 00 :00 (three) Medical times Branch daily. ibuprofen 2018-0 2021- No 800mg Take 1 Univ ers 800 mg 6-21 09-12 tablet by ity of tablet 00:00: 00:00 mouth [place] 00 :00 every 8 Medical (eight) Branch hours. sod 2017-0 Yes 1{bottl Use 1 Univers chlor-bicar 8-11 e} Bottle in ity of b-squeez 00:00: each [place] bottle 00 nostril 2 Medical (NEILMED (two) Branch SINUS RINSE times COMPLETE) daily. Use pkdv in hot shower 1 hour before bedtime sod Yes 1{bottl Use 1 Univers chlor-bicar 8-11 e} Bottle in ity of b-squeez 00:00: each [place] bottle 00 nostril 2 Medical (NEILMED (two) Branch SINUS RINSE times COMPLETE) daily. Use pkdv in hot shower 1 hour before bedtime sod Yes 1{bottl Use 1 Univers chlor-bicar 8-11 e} Bottle in ity of b-squeez 00:00: each [place] bottle 00 nostril 2 Medical (NEILMED (two) Branch SINUS RINSE times COMPLETE) daily. Use pkdv in hot shower 1 hour before bedtime sod Yes 1{bottl Use 1 Univers chlor-bicar 8-11 e} Bottle in ity of b-squeez 00:00: each [place] bottle 00 nostril 2 Medical (NEILMED (two) Branch SINUS RINSE times COMPLETE) daily. Use pkdv in hot shower 1 hour before bedtime sod Yes 1{bottl Use 1 Univers chlor-bicar 8-11 e} Bottle in ity of b-squeez 00:00: each [place] bottle 00 nostril 2 Medical (NEILMED (two) Branch SINUS RINSE times COMPLETE) daily. Use pkdv in hot shower 1 hour before bedtime sod 2020- No 1{bottl Use 1 Univers chlor-bicar 8-11 09-12 e} Bottle in it y of b-squeez 00:00: 00:00 each [place] bottle 00 :00 nostril 2 Medical (NEILMED (two) Branch SINUS RINSE times COMPLETE) daily. Use pkdv in hot shower 1 hour before bedtime sod 2020- No 1{bottl Use 1 Univers chlor-bicar 8-11 09-12 e} Bottle in it y of b-squeez 00:00: 00:00 each [place] bottle 00 :00 nostril 2 Medical (NEILMED (two) Branch SINUS RINSE times COMPLETE) daily. Use pkdv in hot shower 1 hour before bedtime benzonatate Yes 100mg Take 1 Uni vers 100 mg 5-03 capsule by ity of capsule 00:00: mouth 3 [place] 00 (three) Medical times Branch daily as needed for Cough. benzonatate Yes 100mg Take 1 Uni vers 100 mg 5-03 capsule by ity of capsule 00:00: mouth 3 [place] 00 (three) Medical times Branch daily as needed for Cough. benzonatate Yes 100mg Take 1 Uni vers 100 mg 5-03 capsule by ity of capsule 00:00: mouth 3 [place] 00 (three) Medical times Branch daily as needed for Cough. benzonatate Yes 100mg Take 1 Uni vers 100 mg 5-03 capsule by ity of capsule 00:00: mouth 3 [place] 00 (three) Medical times Branch daily as needed for Cough. benzonatate Yes 100mg Take 1 Uni vers 100 mg 5-03 capsule by ity of capsule 00:00: mouth 3 [place] 00 (three) Medical times Branch daily as needed for Cough. benzonatate 2020- No 100mg Take 1 Un jovon 100 mg 5-03 09-12 capsule by ity of capsule 00:00: 00:00 mouth 3 [place] 00 :00 (three) Medical times Branch daily as needed for Cough. benzonatate 2020- No 100mg Take 1 Un jovon 100 mg 5-03 09-12 capsule by ity of capsule 00:00: 00:00 mouth 3 [place] 00 :00 (three) Medical times Branch daily as needed for Cough. ibuprofen 2015-05 Yes 400mg Take 1 Unive rs (MOTRIN) 1-30 tablet by ity of 400 mg 00:00: mouth [place] tablet 00 every 6 Medical (six) Branch hours as needed for Pain (scale 4-6). ibuprofen 2015-05 Yes 400mg Take 1 Unive rs (MOTRIN) 1-30 tablet by ity of 400 mg 00:00: mouth [place] tablet 00 every 6 Medical (six) Branch hours as needed for Pain (scale 4-6). ibuprofen 2015-05 Yes 400mg Take 1 Unive rs (MOTRIN) 1-30 tablet by ity of 400 mg 00:00: mouth [place] tablet 00 every 6 Medical (six) Branch hours as needed for Pain (scale 4-6). ibuprofen 2015-05 Yes 400mg Take 1 Unive rs (MOTRIN) 1-30 tablet by ity of 400 mg 00:00: mouth [place] tablet 00 every 6 Medical (six) Branch hours as needed for Pain (scale 4-6). ibuprofen 2015-05 Yes 400mg Take 1 Unive rs (MOTRIN) 1-30 tablet by ity of 400 mg 00:00: mouth [place] tablet 00 every 6 Medical (six) Branch hours as needed for Pain (scale 4-6). ibuprofen 2015-05- No 400mg Take 1 Univ ers (MOTRIN) 1-30 -12 tablet by ity o f 400 mg 00:00: 00:00 mouth [place] tablet 00 :00 every 6 Medical (six) Branch hours as needed for Pain (scale 4-6). ibuprofen 2015-05- No 400mg Take 1 Univ ers (MOTRIN) 06-19 tablet by ity o f 400 mg 00:00: 00:00 mouth [place] tablet 00 :00 every 6 Medical (six) Branch hours as needed for Pain (scale 4-6). Vital Signs Vital Name Observation Time Observation Value Comments Source Systolic blood 2022-02-05 23:49:01 136 mm[Hg] [facility]iver [facility] Diastolic blood 2022-02-05 23:49:01 99 mm[Hg] Unive rsity [facility] Heart rate 2022-02-05 23:49:01 77 /min [facility] Respiratory rate 2022-02-05 23:49:01 18 /min [facility] Oxygen saturation in 2022-02-05 23:49:01 99 /min [facility] Arterial blood by [facility] Pulse oximetry Branch Body temperature 2022-02-05 21:38:00 37.17 Melida [facility] Body height 2022-02-05 21:38:00 165.1 cm [facility] Body weight 2022-02-05 21:38:00 154.223 kg [facility] BMI 2022-02-05 21:38:00 56.58 kg/m2 [facility] Systolic blood 2021-07-09 08:05:00 142 mm[Hg] [facility] Diastolic blood 2021-07-09 08:05:00 91 mm[Hg] Unive [facility] Heart rate 2021-07-09 08:05:00 66 /min [facility] Respiratory rate 2021-07-09 08:05:00 18 /min [facility] Oxygen saturation in 2021-07-09 08:05:00 97 /min [facility]terial blood by [place] [facility] Pulse oximetry Branch Body temperature 2021-07-09 06:44:00 36.83 Melida [facility] Body height 2021-07-09 06:44:00 167.6 cm [facility] Body weight 2021-07-09 06:44:00 158.759 kg [facility] BMI 2021-07-09 06:44:00 56.49 kg/m2 [facility] Systolic blood 2021-06-29 11:00:00 140 mm[Hg] [facility] Diastolic blood 2021-06-29 11:00:00 87 mm[Hg] [facility] Respiratory rate 2021-06-29 11:00:00 19 /min [facility] Oxygen saturation in 2021-06-29 11:00:00 98 /min [facility] Arterial blood by [place] [facility] Pulse oximetry [facility] Heart rate 2021-06-29 10:21:00 88 /min [facility] Body temperature 2021-06-29 10:21:00 36.56 Melida [facility] Body height 2021-06-29 10:21:00 167.6 cm [facility] [place] [facility] Body weight 2021-06-29 10:21:00 156.491 kg [facility] BMI 2021-06-29 10:21:00 55.68 kg/m2 [facility] Systolic blood 2021-01-30 15:01:00 157 mm[Hg] [facility] Diastolic blood 2021-01-30 15:01:00 111 mm[Hg] [facility] Heart rate 2021-01-30 15:00:00 79 /min [facility] Body temperature 2021-01-30 15:00:00 36.44 Melida [facility] Respiratory rate 2021-01-30 15:00:00 20 /min [facility] Body height 2021-01-30 15:00:00 162.6 cm [facility] Body weight 2021-01-30 15:00:00 149.687 kg [facility] BMI 2021-01-30 15:00:00 56.64 kg/m2 [facility] Oxygen saturation in 2021-01-30 15:00:00 100 /min [facility] Arterial blood by [place] [facility] Pulse oximetry [facility] Systolic blood 2020-11-12 05:00:00 116 mm[Hg] [facility] Diastolic blood 2020-11-12 05:00:00 80 mm[Hg] [facility] Heart rate 2020-11-12 05:00:00 91 /min [facility] Oxygen saturation in 2020-11-12 05:00:00 98 /min [facility] Arterial blood by [facility] yleena Pulse oximetry Branch Respiratory rate 2020-11-12 04:30:00 16 /min [facility] Body temperature 2020-11-12 03:30:00 37.5 Melida [facility] Body height 2020-11-12 00:54:00 162.6 cm [facility] Body weight 2020-11-12 00:54:00 149.687 kg [facility] BMI 2020-11-12 00:54:00 56.64 kg/m2 [facility] Systolic blood 2020-01-12 01:00:00 134 mm[Hg] [facility] Diastolic blood 2020-01-12 01:00:00 83 mm[Hg] [facility] Heart rate 2020-01-12 01:00:00 73 /min [facility] Respiratory rate 2020-01-12 01:00:00 16 /min [facility] Oxygen saturation in 2020-01-12 01:00:00 98 /min [facility] Arterial blood by [facility] yelena Pulse oximetry Branch Body temperature 2020-01-11 23:11:00 37.11 Melida [facility] Body height 2020-01-11 23:11:00 165.1 cm [facility] Body weight 2020-01-11 23:11:00 [facility] 2020-01-11 23:11:00 50.42 kg/m2 [facility] Systolic blood 2019-01-29 17:00:00 125 mm[Hg] [facility] Diastolic blood 2019-01-29 17:00:00 95 mm[Hg] Unive [facility] Heart rate 2019-01-29 17:00:00 64 /min [facility] Respiratory rate 2019-01-29 17:00:00 18 /min [facility] Oxygen saturation in 2019-01-29 17:00:00 100 /min [facility] Arterial blood by [facility] Pulse oximetry [place] Body temperature 2019-01-29 15:07:00 36.61 Melida [facility] Body height 2019-01-29 15:07:00 162.6 cm [facility] Body weight 2019-01-29 15:07:00 145.151 kg [facility] BMI 2019-01-29 15:07:00 54.93 kg/m2 [facility] Procedures Procedure Date / Time Performed Performing Clinician Sour e EKG-12 LEAD 2022-02-05 [facility]53[facility]02-05 22:26:00 Juliana Rizo [facility] URINALYSIS 2022-02-05 22:15[facility] 2022-02-05 22:04[facility] MET[facility]OLIC PANEL 2022-02-05 22:04:00 Juliana Rizo [facility] ([id number]) [facility] CBC WITH DIFF 2022-02-05 22:04[facility] 2022-02-05 21:39:00 Juliana Rizo [facility] (AUTOMATED) [facility] POCT GLUCOSE 2022-02-05 21:37:[facility] CONSENT/REFUSAL FOR 2022-02-05 21:24:22 Doctor Unassigned, No [facility] [place] DIAGNOSIS AND Name Medical Branch TREATMENT RAPID STREP SCREEN FOR 2021-07-09 06:52:00 Juliana Rizo [facility] GROUP A Medical Branch CONSENT/REFUSAL FOR 2021-07-09 06:38:59 Doctor Unassigned, No [facility] [place] DIAG[facility]IS AND Name Medical Branch TREATMENT CONSENT/REFUSAL FOR 2021-06-29 10:08:48 Doctor Unassigned, No [facility] [place] DIAGNOSIS AND Name Medical Branch TREATMENT CONSENT/REFUSAL FOR 2021-01-30 14:50:30 Doctor Unassigned, No [facility] [place] DIAGNOSIS AND Name Medical Branch TREATMENT CT ABDOMEN PELVIS W 2020-11-12 04:03:37 Arturo Lozano [facility] CONTRAST Medical Branch POCT TEST 2020-11-12 01:15:00 Arturo Lozano [facility] Medical Branch LIPASE 2020-11-12 01:04:00 Arturo Lozano [facility] COMP. METABOLIC PANEL 2020-11-12 01:04:00 Arturo Lozano [facility] ([id number]) Medical Branch CBC WITH DIFF 2020-11-12 01:04:00 Arturo Lozano [facility] URINALYSIS 2020-11-12 01:04:00 Marta Nejustyna Kulkarni [facility] COVID-19 (ID NOW RAPID 2020-11-12 01:04:00 Arturo Lozano [facility] TESTING) Medical Branch NOTICE OF PRIVACY 2020-11-12 00:46:49 Doctor Unassigned, No [facility] PRACTICES Name Medical Branch CONSENT/REFUSAL FOR 2020-11-12 00:46:22 Doctor Unassigned, No [facility] [place] DIAGNOSIS AND Name Medical Branch TREATMENT CT ABDOMEN PELVIS WO 2020-01-12 01:38:03 Arjun Clarke [facility] CONTRAST Medical Branch LIPASE 2020-01-12 00:41:00 Arjun Clarke [facility] COMP. METABOLIC PANEL 2020-01-12 00:41:00 Arjun Clarke [facility] ([id number]) [facility] CBC WITH DIFF 2020-01-12 00:41:00 Arjun Clarke [facility] URINALYSIS 2020-01-12 00:28:00 Arjun Clarke [facility] POCT TEST 2020-01-12 00:28:00 Arjun Clarke [facility] NOTICE OF PRIVACY 2020-01-11 23:05:20 Doctor Unassigned, No [facility] Name [facility] CONSENT/REFUSAL FOR 2020-01-11 23:05:03 Doctor Unassigned, No [facility] [place] [facility] AND Name [facility] TREATMENT XR CHEST 1 VW 2019-01-29 16:47:59 Cesar Fabiano [place] ana maría sewell [facility] NOTICE OF PRIVACY 2019-01-29 14:53:45 Doctor Unassigned, No [facility] CONSENT/REFUSAL FOR 2019-01-29 14:53:28 Doctor Unassigned, No [facility] [place] DIAGNOSIS AND Name [facility] TREATMENT Encounters Start End Encounter Admission Attending Care Care Encounter Source Date/Time Date/Time Type Type Clinicians Facility Department ID 2022-02-05 2022-02-05 Emergency X RIZO, [facility] ERT [id number] Univers 16:40:00 18:57:00 [facility] 2022-02-05 2022-02-05 Emergency Rizo, [facility] [id number] Univers 16:40:00 18:57:00 Juliana RADER [id number] i ty of [place] 4.2.7.2.686 [facility] [id number] [facility] 084 Branch 2021-07-09 2021-07-09 Emergency X RIZO, [facility] ERT [id number] Univers 00:46:00 02:08:00 [facility] 2021-07-09 2021-07-09 Emergency Rizo, [facility] [id number] Univers 00:46:00 02:08:00 Juliana RADER [id number] i ty of [place] 4.2.7.2.686 [facility] [id number] [place] [address] [place] 2021-07-09 2021-07-09 Orders Doctor FLORES [id number] Univers 00:00:00 00:00:00 Only Unassigned, CHANDRAKANT [id number] [facility] 4.2.7.2.686 [facility] [id number] [place] [address] Branch 2021-06-29 2021-06-29 Emergency X [facility] ERT [id number] Univers 04:19:00 05:48:00 WAKILI ity of [facility] 2021-06-29 2021-06-29 Emergency [facility] [id number] Univers 04:19:00 05:48:00 Arturo FARRARJULIET [id number] ity of [place] 4.2.7.2.686 [facility] [id number] [address] 2021-01-30 2021-01-30 Emergency [facility] 1.2.840.114 [id number] Univers 10:02:00 10:39:00 Jessica Rader [id number] ity of [place] 4.2.7.2.686 [facility] [id number] [address] 2021-01-30 2021-01-30 Emergency X [facility] ERT [id number] Univers 09:50:00 09:50:00 ity of [facility] 2020-11-11 2020-11-12 Emergency [facility] [id number] Univers 20:40:00 00:29:00 Arturo Rader [id number] ity of [place] 4.2.7.2.686 [facility] [id number] [address] 2020-11-11 2020-11-11 Emergency X [facility] ERT [id number] Univers 19:46:00 19:46:00 ity of [facility] 2020-11-11 2020-11-11 MARK Bruno [id number] Univers 00:00:00 00:00:00 (Out) Calixto STALLINGS [id number] it y of [facility] 4.2.7.2.686 Raul as [id number] [facility] 019 Branch 2020-01-11 2020-01-11 Emergency [facility] 1.2.840.114 [id number] Univers 18:17:00 21:25:00 Arjun Rader [id number] i ty of [place] [id number] [facility] [id number] [place] [address] Branch 2020-01-11 2020-01-11 Emergency X [facility] ERT [id number] Univers 18:17:00 18:17:00 ARJUN ity of [facility] 2019-01-29 2019-01-29 Emergency [facility] [id number] Univers 09:57:26 12:45:00 Fabiano Rader [id number] i ty of [place] [address]..2.686 [facility] [id number] [place] [address] [place] 2019-01-29 2019-01-29 Orders Doctor MARK 1.2.840.114 [id number] Univers 00:00:00 00:00:00 Only Unassigned, CHANDRAKANT [id number] ity of [place] [address]686 Raul as [phone] [facility] 009 [place] Results Test Description Test Time Test Comments Results Result Comments Source TROPONIN I 2022-02-05 22:39:54 Test Item Value Reference Range Interpretation Comme nts TROPONIN I (test code = 0.003 ng/mL See_Comment [Au tomated message] The [id number]) system which ge nerated this result tra nsmitted reference range : <=0.034. The reference r manjit was not used to int erpret this result as normal/abnormal . ELTON (test code = ELTON) Reference (Normal) Range (defined by the 99th percentile reference limit): <= 0.034 ng/mL Note: Cardiac troponin begins to rise 3-4 hours after the onset of ischemia. Repeat in 4-6 hours if the sample was drawn within 3-4 hours of the onset of the symptom and found normal. Diagnosis of myocardial injury is made with acute changes in cTn concentrations with at least one serial sample above the 99th percentile upper reference limit (URL), taken together with the patient's clinical presentation. Biotin has been reported to cause a negative bias, interpret results relative to patient's use of biotin. Lab Interpretation Normal (test code = 87343-5) [facility]. METABOLIC PANEL ([id number])2022-02-05 22:29:51 Test Item Value Reference Range Interpretation Comments NA (test code = 141 mmol/L 135-145 4310465221) K (test code = 4.1 mmol/L 3.5-5 3128438534) CL (test code = 107 mmol/L 98-108 5035314763) CO2 TOTAL (test code 28 mmol/L 23-31 = 9677130841) AGAP (test code = 2-16 4213430689) BUN (test code = 13 mg/dL 7-23 7300877137) GLUCOSE (test code = 90 mg/dL 70-110 2265465347) CREATININE (test code 0.61 mg/dL 0.5-1.04 = 3985317470) TOTAL BILI (test code 0.2 mg/dL 0.1-1.1 = 5729561933) CALCIUM (test code = 9.0 mg/dL 8.6-10.6 1505968314) T PROTEIN (test code 7.0 g/dL 6.3-8.2 = 8800302112) ALBUMIN (test code = 4.1 g/dL 3.5-5 9393277002) ALK PHOS (test code = 77 U/L 34-122 2841431637) ALTv (test code = 21 U/L 5-35 1742-6) AST(SGOT) (test code 18 U/L 13-40 = 6118128254) eGFR (test code = mL/min/1.73m2 9808935691) ELTON (test code = ELTON) Association of Glomerular Filtration Rate (GFR) and Staging of Kidney Disease* + + +- +| GFR (mL/min/1.73 m2) ?| With Kidney Damage ?| ?Without Kidney Damage+ ------+ ----+ ------+| ?>90 ?| ?Stage one ?| ? Normal ?+ -+ + -+| ?60-89 ?| ?Stage two ?| ? Decreased GFR ? + + +- +| ?30-59 ?| ?Stage three ?| ? Stage three ? + + +- +| ?15-29 ?| ?Stage four ? | ? Stage four ?+ -+ + -+| ?<15 (or dialysis) ? ?| ?Stage five ? | ? Stage five ?+ -+ + -+ *Each stage assumes the associated GFR level has been in effect for at least three months. ?Stages 1 to 5, with or without kidney disease, indicate chronic kidney disease. Notes: Determination of stages one and two (with eGFR >59mL/min/1.73 m2) requires estimation of kidney damage for at least three months as defined by structural or functional abnormalities of the kidney, manifested by either:Pathological abnormalities or Markers of kidney damage (including abnormalities in the composition of the blood or urine or abnormalities in imaging tests). [id number] 22:26:00 Test Item Value Reference Range Interpretation Comments POCT PREG (test code = 1605) negative On board controls acceptable with present C Line (test code = 3574) POCT PREG LOT # (test code = 3575) [id number] POCT PREG TEST DATE (test 04/19/2023 code = 3576) Lab Interpretation (test code = Normal 29432-9) [facility] WITH [id number] 22:16:31 Test Item Value Reference Range Interpretation Comments WBC (test code = See_Comment [Automated 3990-2) message] The sy stem which generated this result transmitted reference range : 4.30 - 11.10 10*3/?L. The reference range was not used to interpret this result as normal/abnormal . RBC (test code = See_Comment [Automated 835-0) message] The sy stem which generated this result transmitted reference range : 3.93 - 5.25 10*6/?L. The reference range was not used to interpret this result as normal/abnormal . HGB (test code = 12.2 g/dL 11.6-15 718-7) HCT (test code = 38.8 % 35.7-45.2 4544-3) MCV (test code = 82.9 fL 80.6-95.5 787-2) MCH (test code = 26.1 pg 25.9-32.8 785-6) MCHC (test code = 31.4 g/dL 31.6-35.1 L 786-4) RDW-SD (test code = 46.5 fL 39-49.9 43442-2) RDW-CV (test code = 15.4 % 12-15.5 788-0) PLT (test code = See_Comment H [Automated 777-3) message] The sy stem which generated this result transmitted reference range : 166 - 358 10*3/ ?L. The reference r manjit was not used to interpret this result as normal/abnormal . MPV (test code = 11.2 fL 9.5-12.9 18567-5) NRBC/100 WBC (test See_Comment [Automat ed code = 6597004826) message] The system which generated this result transmitted reference range : 0.0 - 10.0 /100 WBCs. The refer ence range was not u sed to interpret th is result as normal/abnormal . NRBC x10^3 (test code See_Comment [Auto mated = 8021558933) message] The s ystem which generated this result transmitted reference range : 10*3/?L. The reference range was not used to interpret this result as normal/abnormal . GRAN MAT (NEUT) % 61.2 % (test code = 770-8) IMM GRAN % (test code 0.30 % = 1814272737) LYMPH % (test code = 28.0 % 736-9) MONO % (test code = 7.4 % 5905-5) EOS % (test code = 2.1 % 713-8) BASO % (test code = 1.0 % 706-2) GRAN MAT x10^3(ANC) 4.40 10*3/uL 1.88-7.09 (test code = 5631369680) IMM GRAN x10^3 (test 0-0.06 code = 2144546159) LYMPH x10^3 (test code 2.01 10*3/uL 1.32-3.29 = 731-0) MONO x10^3 (test code 0.53 10*3/uL 0.33-0.92 = 742-7) EOS x10^3 (test code = 0.15 10*3/uL 0.03-0.39 711-2) BASO x10^3 (test code 0.07 10*3/uL 0.01-0.07 = 704-7) Lab Interpretation Abnormal (test code = 08645-9) [facility] GLUCOSE (AUTOMATED)2022-02-05 21:43:51 Test Item Value Reference Range Interpretation Comments POCT GLU (test code = 0251856629) 83 mg/dL 70-110 Lab Interpretation (test code = Normal 30427-2) [facility] GLUCOSE (AUTOMATED)2022-02-05 21:43:50 Test Item Value Reference Range Interpretation Comments POCT GLU (test code = 8514623560) 85 mg/dL 70-110 Lab Interpretation (test code = Normal 38392-9) [facility] 01:41:16 Test Item Value Reference Range Interpretation Comments APPEARANCE (test code = Hazy Clear A 5198063776) COLOR (test code = Yellow Yellow 2606900985) PH (test code = 4.8-8.0 4421448105) SP GRAVITY (test code = 1.003-1.030 9150825662) GLU U QUAL (test code = Normal Normal 9033983159) BLOOD (test code = Negative Negative 9849035419) KETONES (test code = Negative Negative 2763940520) PROTEIN (test code = Negative Negative 2887-8) UROBILIN (test code = Normal Normal 8922509350) BILIRUBIN (test code = Negative Negative 6459726673) NITRITE (test code = Negative Negative 9988926737) LEUK VINCENZO (test code = Negative Negative 9187625357) RBC/HPF (test code = See_Comment H [Autom ated message] 7541773771) The system [employer] generated this result transmitted ref erence range: 0 - 3 HP F. The reference range was not used to int erpret this result as normal/abnormal . WBC/HPF (test code = See_Comment [Autom ated message] 3202845093) The system [employer] generated this result transmitted ref erence range: 0 - 5 HP F. The reference range was not used to int erpret this result as normal/abnormal . BACTERIA (test code = Few Negative A 8899183842) MUCOUS (test code = Marked Negative LPF A 3304047145) SQ EPITH (test code = HPF 1629971031) HYAL CAST (test code = See_Comment [Aut omated message] 7738224325) The system [employer] generated this result transmitted ref erence range: <=2 LPF. The reference range was not used to int erpret this result as normal/abnormal . Lab Interpretation (test Abnormal code = 60400-5) [facility] NOW RAPID TESTING)2020-11-12 01:40:36 Test Item Value Reference Range Interpretation Comments SARS-CoV-2 Rapid ID NOW Not Detected Not Detected (test code = 69900-1) ELTON (test code = ELTON) ID NOW COVID-19 Assay is an isothermal nucleic acid amplification test intended for the qualitative detection of nucleic acid from SARS-CoV-2 viral RNA in nasopharyngeal (PR[employer]IP[employer]CHIT[employer]) specimens. It is used under Emergency Use Authorization (EUA) by FDA. The limit of detection (LOD) of the assay is 125 Genome Equivalents/mL. A positive result is indicative of the presence of SARS-CoV-2 RNA. ?Clinical correlation with patient history and other diagnostic information is necessary to determine patient infection status. A negative (Not Detected) result does not preclude SARS-CoV-2 infection. In patients with clinical symptoms and other tests that are consistent with SARS-CoV-2 infection, negative results should be treated as presumptive negative and a new specimen should be tested with alternative PCR molecular test. Invalid: Please collect a new specimen for repeat patient testing if clinically indicated. Lab Interpretation Normal (test code = 33060-8) [facility] Metabolic [id number] 01:36:58 Test Item Value Reference Range Interpretation Comments NA (test code = 138 mmol/L 135-145 3741190998) K (test code = 4.0 mmol/L 3.5-5.0 8955693759) CL (test code = 104 mmol/L 98-108 1836735826) CO2 TOTAL (test code = 25 mmol/L 23-31 4581343042) AGAP (test code = 2-16 8177316393) BUN (test code = 14 mg/dL 7-23 5602527514) GLUCOSE (test code = 107 mg/dL 70-110 2167936456) CREATININE (test code = 0.66 mg/dL 0.50-1.04 3208712531) TOTAL BILI (test code = 0.5 mg/dL 0.1-1.8 1425273251) CALCIUM (test code = 9.7 mg/dL 8.6-10.6 6696232268) T PROTEIN (test code = 8.5 g/dL 6.3-8.2 H 2038309080) ALBUMIN (test code = 4.4 g/dL 3.5-5.0 7872335754) ALK PHOS (test code = 68 U/L 34-122 2553525281) ALTv (test code = 24 U/L 5-35 2-6) AST(SGOT) (test code = 20 U/L 13-40 3848887498) eGFR (test code = mL/min/1.73m2 3610568703) ELTON (test code = ELTON) Association of Glomerular Filtration Rate (GFR) and Staging of Kidney Disease* + --+ --+ ------+| GFR (mL/min/1.73 m2) ?| With Kidney Damage ?| ?Without Kidney Damage+ --------+ --------+ +| ?>90 ?| ?Stage one ?| ? Normal ?+ ---+ ---+ -------+| ?60-89 ?| ?Stage two ?| ? Decreased GFR ? + --+ --+ ------+| ?30-59 ?| ?Stage three ?| ? Stage three ? + --+ --+ ------+| ?15-29 ?| ?Stage four ? | ? Stage four ?+ ---+ ---+ -------+| ?<15 (or dialysis) ? ?| ?Stage five ? | ? Stage five ?+ ---+ ---+ -------+ *Each stage assumes the associated GFR level has been in effect for at least three months. ?Stages 1 to 5, with or without kidney disease, indicate chronic kidney disease. Notes: Determination of stages one and two (with eGFR >59mL/min/1.73 m2) requires estimation of kidney damage for at least three months as defined by structural or functional abnormalities of the kidney, manifested by either:Pathological abnormalities or Markers of kidney damage (including abnormalities in the composition of the blood or urine or abnormalities in imaging tests). Lab Interpretation Abnormal (test code = 52457-2) [facility], [id number] 01:36:58 Test Item Value Reference Range Interpretation Comments LIPASE (test code = 1382197232) 68 U/L 0-220 Lab Interpretation (test code = Normal 92747-0) [facility] with [id number] 01:24:35 Test Item Value Reference Range Interpretation Comments WBC (test code = See_Comment [Automated 6690-2) message] The sy stem which generated this result transmitted reference range : 4.30 - 11.10 10*3/?L. The reference range was not used to interpret this result as normal/abnormal . RBC (test code = See_Comment [Automated 789-8) message] The sy stem which generated this result transmitted reference range : 3.93 - 5.25 10*6/?L. The reference range was not used to interpret this result as normal/abnormal . HGB (test code = 12.7 g/dL 11.6-15.0 718-7) HCT (test code = 39.8 % 35.7-45.2 4544-3) MCV (test code = 82.2 fL 80.6-95.5 787-2) MCH (test code = 26.2 pg 25.9-32.8 785-6) MCHC (test code = 31.9 g/dL 31.6-35.1 786-4) RDW-SD (test code = 44.0 fL 39.0-49.9 91248-4) RDW-CV (test code = 14.6 % 12.0-15.5 788-0) PLT (test code = See_Comment H [Automated 777-3) message] The sy stem which generated this result transmitted reference range : 166 - 358 10*3/ ?L. The reference r manjit was not used to interpret this result as normal/abnormal . MPV (test code = 11.2 fL 9.5-12.9 15867-6) NRBC/100 WBC (test See_Comment [Automat ed code = 4074092933) message] The system which generated this result transmitted reference range : 0.0 - 10.0 /100 WBCs. The refer ence range was not u sed to interpret th is result as normal/abnormal . NRBC x10^3 (test code <0.01 See_Comment [Auto mated = 6232609967) message] The s ystem which generated this result transmitted reference range : 10*3/?L. The reference range was not used to interpret this result as normal/abnormal . GRAN MAT (NEUT) % 83.7 % (test code = 770-8) IMM GRAN % (test code 0.40 % = 2259372503) LYMPH % (test code = 10.5 % 736-9) MONO % (test code = 4.4 % 5905-5) EOS % (test code = 0.3 % 713-8) BASO % (test code = 0.7 % 706-2) GRAN MAT x10^3(ANC) 7.63 10*3/uL 1.88-7.09 H (test code = 3521482702) IMM GRAN x10^3 (test 0.04 10*3/uL 0.00-0.06 code = 6536026487) LYMPH x10^3 (test code 0.96 10*3/uL 1.32-3.29 L = 731-0) MONO x10^3 (test code 0.40 10*3/uL 0.33-0.92 = 742-7) EOS x10^3 (test code = 0.03 10*3/uL 0.03-0.39 711-2) BASO x10^3 (test code 0.06 10*3/uL 0.01-0.07 = 704-7) Lab Interpretation Abnormal (test code = 55156-6) [id number] Test Item Value Reference Range Interpretation Comments POCT PREG (test code = 1605) negative On board controls acceptable with yes C Line (test code = 3574) POCT PREG LOT # (test code = 3575) [id number] POCT PREG TEST DATE (test 05/20/2022 code = 3576) Lab Interpretation (test code = Normal 49228-5) [facility] ABDOMEN PELVIS WO [id number] 02:01:56 No acute abdominal or pelvic abnormality. Left retroaortic renal vein noted, a common variant oftenasymptomatic butsometimes associated with flank pain and/or hematuria. EXAM: CT ABDOMEN AND PELVIS WITHOUT CONTRAST HISTORY: Flank pain, stone disease suspected COMPARISON: 03/20/2018 TECHNIQUE AND FIND INGS: Contiguous axial imaging from the level of the lungbases through the pubic symphysis was performed without contrast. Coronaland sagittal reconstructions were obtained. DOSE: DLP is 1079 mGy/cm. FINDINGS: LOWER THORAX: The lungs bases are clear. No cardiomegaly. LIVER: No focal hepatic lesions. ?No biliary ductal dilation. GALLBLADDER AND BILIARY TREE: No biliary ductal dilation. ?No gallbladderwall thickening. SPLEEN: No splenomegaly. PANCREAS: No ductal dilation or masses. ADRENAL GLANDS: No adrenal nodules. KIDNEYS: No hydronephrosis, stones, or masses. PERITONEUM AND RETROPERITONEUM: No free air or fluid. LYMPH NODES: No lymphadenopathy. GI TRACT: No dilation or wall thickening. PELVIS/BLADDER: Urinary bladder, uterus and adnexa are unremarkable. VESSELS: Left retroaortic renal vein noted, a normal variant relativelysymptomatic with associated with hematuria.. BONES AND SOFT TISSUES: Nosuspicious lytic or sclerotic bony lesions. [facility], Radiant Results Inft User - 01/11/2020 9:03 PM CDTEXAM: CT ABDOMEN AND PELVIS WITHOUT CONTRASTHISTORY: Flank pain, stone disease suspectedCOMPARISON: 03/20/2018TECHNIQUE AND FINDINGS: Contiguous axial imaging from the level of the lungbases through thepubic symphysis was performed without contrast. Coronaland sagittal reconstructions were obtained.DOSE: DLP is 1079 mGy/cm.FINDINGS:LOWER THORAX: The lungs bases are clear. No cardiomegaly.LIVER: No focal hepatic lesions. No biliary ductal dilation.GALLBLADDER AND BILIARY TREE: No biliary ductal dilation. No gallbladderwall thickening.SPLEEN: No splenomegaly.PANCREAS: No ductal dilation or masses.ADRENAL GLANDS: No adrenal nodules.KIDNEYS: No hydronephrosis, stones, or masses.PERITONEUM AND RETROPERITONEUM: No free air or fluid.LYMPH NODES: No lymphadenopathy.GI TRACT: No dilation or wall thickening.PELVIS/BLADDER: Urinary bladder, uterus and adnexa are unremarkable.VESSELS: Left retroaortic renalvein noted, a normal variant relativelysymptomatic with associated with hematuria..BONES AND SOFT TISSUES: No suspicious lytic or sclerotic bony lesions.IMPRESSIONNo acute abdominal or pelvic abnormality.Left retroaortic renal vein noted, a common variant often asymptomatic butsometimes associated with flank pain and/or hematuria.[facility] Branch[facility] 2020-01-12 01:27:00 Test Item Value Reference Range Interpretation Comments APPEARANCE (test code = Clear Clear 4858612402) COLOR (test code = Yellow Yellow 4062343659) PH (test code = 4.8-8.0 0172399404) SP GRAVITY (test code = 1.003-1.030 1781899808) GLU U QUAL (test code = Normal Normal 2159143222) BLOOD (test code = Negative Negative INTERFERE NCE FROM 8115569295) ASCORBIC ACID M AY CAUSE FALSE NEG ATIVE RESULT KETONES (test code = Negative Negative 4383633158) PROTEIN (test code = Negative Negative 2887-8) UROBILIN (test code = Normal Normal 9278442535) BILIRUBIN (test code = Negative Negative 9346507114) NITRITE (test code = Negative Negative 8412254799) LEUK VINCENZO (test code = Negative Negative 4931580886) RBC/HPF (test code = See_Comment [Autom ated message] 0176343446) The system [employer] generated this result transmitted ref erence range: 0 - 3 HP F. The reference range was not used to int erpret this result as normal/abnormal . WBC/HPF (test code = <1 See_Comment [Autom ated message] 9848696075) The system [employer] generated this result transmitted ref erence range: 0 - 5 HP F. The reference range was not used to int erpret this result as normal/abnormal . BACTERIA (test code = Few Negative A 6532215305) MUCOUS (test code = Slight Negative LPF A 7317042111) SQ EPITH (test code = HPF 8973230178) HYAL CAST (test code = See_Comment [Aut omated message] 9510782844) The system [employer] generated this result transmitted ref erence range: <=2 LPF. The reference range was not used to int erpret this result as normal/abnormal . Lab Interpretation (test Abnormal code = 25092-5) [facility]OLIC PAN[facility] (65659)2020-01-12 01:12:00 Test Item Value Reference Range Interpretation Comments NA (test code = 138 mmol/L 135-145 4750108071) K (test code = 4.4 mmol/L 3.5-5 3278184815) CL (test code = 107 mmol/L 98-108 0848629137) CO2 TOTAL (test code = 23 mmol/L 23-31 3654310231) AGAP (test code = 2-16 6872527981) BUN (test code = 12 mg/dL 7-23 1516067609) GLUCOSE (test code = 106 mg/dL 70-110 6227378045) CREATININE (test code 0.57 mg/dL 0.5-1.04 = 1337718632) TOTAL BILI (test code 0.2 mg/dL 0.1-1.1 = 6932688273) CALCIUM (test code = 8.9 mg/dL 8.6-10.6 2683858550) T PROTEIN (test code = 7.3 g/dL 6.3-8.2 7811370607) ALBUMIN (test code = 4.0 g/dL 3.5-5 1804447956) ALK PHOS (test code = 60 U/L 34-122 1193888371) ALTv (test code = 22 U/L 5-35 1742-6) AST(SGOT) (test code = 26 U/L 13-40 7381137906) eGFR Calculation mL/min/1.73m2 (Non-) (test code = 5884157864) eGFR Calculation mL/min/1.73m2 () (test code = 7530374729) ELTON (test code = ELTON) Association of Glomerular Filtration Rate (GFR) and Staging of Kidney Disease* + -+ + ---+| GFR (mL/min/1.73 m2) ?| With Kidney Damage ?| ?Without Kidney Damage+ -------+ ------+ ---------+| ?>90 ?| ?Stage one ?| ? Normal ?+ --+ -+ ----+| ?60-89 ?| ?Stage two ?| ? Decreased GFR ? + -+ + ---+| ?30-59 ?| ?Stage three ?| ? Stage three ? + -+ + ---+| ?15-29 ?| ?Stage four ? | ? Stage four ?+ --+ -+ ----+| ?<15 (or dialysis) ? ?| ?Stage five ? | ? Stage five ?+ --+ -+ ----+ *Each stage assumes the associated GFR level has been in effect for at least three months. ?Stages 1 to 5, with or without kidney disease, indicate chronic kidney disease. Notes: Determination of stages one and two (with eGFR >59mL/min/1.73 m2) requires estimation of kidney damage for at least three months as defined by structural or functional abnormalities of the kidney, manifested by either:Pathological abnormalities or Markers of kidney damage (including abnormalities in the composition of the blood or urine or abnormalities in imaging tests). [facility] HospitalLipase [id number] 01:12:00 Test Item Value Reference Range Interpretation Comments LIPASE (test code = 9130005521) 149 U/L 0-220 Lab Interpretation (test code = Normal 42904-9) [facility] HospitalCBC with [id number] 01:02:00 Test Item Value Reference Range Interpretation Comments WBC (test code = See_Comment L [Automated 6890-2) message] The sy stem which generated this result transmitted reference range : 4.30 - 11.10 10*3/?L. The reference range was not used to interpret this result as normal/abnormal . RBC (test code = See_Comment [Automated 319-8) message] The sy stem which generated this result transmitted reference range : 3.93 - 5.25 10*6/?L. The reference range was not used to interpret this result as normal/abnormal . HGB (test code = 12.4 g/dL 11.6-15 718-7) HCT (test code = 39.2 % 35.7-45.2 4544-3) MCV (test code = 85.4 fL 80.6-95.5 787-2) MCH (test code = 27.0 pg 25.9-32.8 785-6) MCHC (test code = 31.6 g/dL 31.6-35.1 786-4) RDW-SD (test code = 47.7 fL 39-49.9 76981-1) RDW-CV (test code = 15.4 % 12-15.5 788-0) PLT (test code = See_Comment [Automated 777-3) message] The sy stem which generated this result transmitted reference range : 166 - 358 10*3/ ?L. The reference r manjit was not used to interpret this result as normal/abnormal . MPV (test code = 11.9 fL 9.5-12.9 66161-2) NRBC/100 WBC (test See_Comment [Automat ed code = 2166181176) message] The system which generated this result transmitted reference range : 0.0 - 10.0 /100 WBCs. The refer ence range was not u sed to interpret th is result as normal/abnormal . NRBC x10^3 (test code <0.01 See_Comment [Auto mated = 9356182730) message] The s ystem which generated this result transmitted reference range : 10*3/?L. The reference range was not used to interpret this result as normal/abnormal . GRAN MAT (NEUT) % 56.3 % (test code = 770-8) IMM GRAN % (test code 0.30 % = 8086603071) LYMPH % (test code = 34.1 % 736-9) MONO % (test code = 6.7 % 5905-5) EOS % (test code = 2.0 % 713-8) BASO % (test code = 0.6 % 706-2) GRAN MAT x10^3(ANC) 1.93 10*3/uL 1.88-7.09 (test code = 0705316360) IMM GRAN x10^3 (test <0.03 0-0.06 code = 2253279562) LYMPH x10^3 (test code 1.17 10*3/uL 1.32-3.29 L = 731-0) MONO x10^3 (test code 0.23 10*3/uL 0.33-0.92 L = 742-7) EOS x10^3 (test code = 0.07 10*3/uL 0.03-0.39 711-2) BASO x10^3 (test code <0.03 0.01-0.07 = 704-7) Lab Interpretation Abnormal (test code = 13693-1) [facility]POCT [id number] 00:28:00 Test Item Value Reference Range Interpretation Comments POCT PREG (test code = 1605) negative On board controls acceptable with present C Line (test code = 3574) POCT PREG LOT # (test code = 3575) [id number] POCT PREG TEST DATE (test 12-18-2020 code = 3576) Lab Interpretation (test code = Normal 03957-4) [facility] HospitalXR CHEST 1 [id number] 16:52:13HISTORY: Chest pain. TECHNIQUE: Portable AP erect view of the chest is obtained. No prior cheststudyavailable for comparison. FINDINGS: No acute pneumonia. No pneumothorax or pleural effusion orpulmonary congestion detected. Cardiac size is mildly enlarged. CONCLUSIONS: Mild cardiomegaly suspected. [facility], Radiant Results Inft User - 01/29/2019 11:52 AM CDTHISTORY: Chest pain.TECHNIQUE: Portable AP erect view of the chest is obtained. No prior cheststudy available for comparison.FINDINGS: No acute pneumonia. No pneumothorax or pleural effusion orpulmonary congestion detected. Cardiac size is mildly enlarged.CONCLUSIONS: Mild cardiomegaly suspected.[facility]"
--- NOTE | 2022-03-01 21:08 | EDPHYS ---
Physician Documentation [facility] Name: Vivek Chino Age: 37 yrs Sex: Female : 1985 Arrival Date: 03/01/2022 Time: 19:18 Bed 17 Private MD: TIFFANY Physician Calixto Martinez HPI: 03/01 22:00 This 37 yrs old Female presents to ER via Ambulatory with complaints of Abdominal Pain, kb Back Pain, Fever. 22:00 The patient presents with abdominal pain that is diffuse. Onset: The symptoms/episode kb began/occurred 4 day(s) ago. The symptoms radiate to back. Associated signs and symptoms: Pertinent positives: nausea. The symptoms are described as constant. Modifying factors: The symptoms are alleviated by nothing, the symptoms are aggravated by nothing. Severity of pain: At its worst the pain was moderate in the emergency department the pain is unchanged. The patient has not experienced similar symptoms in the past. The patient has been recently been admitted at [facility], was discharged yesterday. Pt reports she was recently admitted for a UTI. States she was discharged yesterday and called to come back today because her culture shows that she needs IV antibiotics. States the pain was on right side and radiated to back, now it is on both sides and radiates to back . 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 Last tetanus immunization: unknown. - Social history:: Smoking status: Patient denies any tobacco usage or history of. ROS: 22:02 Constitutional: Negative for fever, chills, and weight loss. kb 22:02 Abdomen/GI: Positive for abdominal pain, Negative for nausea, vomiting, and diarrhea. 22:02 Back: Positive for flank pain, bilaterally. 22:02 All other systems are negative. Exam: 22:00 Constitutional: This is a well developed, well nourished patient who is awake, alert, kb and in no acute distress. Head/Face: Normocephalic, atraumatic. ENT: Moist Mucous membranes Cardiovascular: Regular rate and rhythm with a normal S1 and S2. No gallops, murmurs, or rubs. No pulse deficits. Respiratory: Respirations even and unlabored. No increased work of breathing. Talking in full sentences Abdomen/GI: Soft, non-tender. No distention Skin: Warm, dry with normal turgor. Normal color. MS/ Extremity: Pulses equal, no cyanosis. Neurovascular intact. Full, normal range of motion. Neuro: Awake and alert, GCS 15, oriented to person, place, time, and situation. Moves all extremities. Normal gait. Psych: Awake, alert, with orientation to person, place and time. Behavior, mood, and affect are within normal limits. Vital Signs: 19:54 Pulse 71; Resp 18; Temp 98.3; Pulse Ox 100% ; Weight 154.22 kg; Height 5 ft. 4 in. kb3 (162.56 cm); Pain 6/10; 21:14 BP 132 / 84; Pulse 71; Resp 18; Pulse Ox 100% on R/A; ha1 22:10 BP 130 / 80; Pulse 70; Resp 16 S; Pulse Ox 100% on R/A; ha1 19:54 Body Mass Index 58.36 (154.22 kg, 162.56 cm) kb3 MDM: 20:51 Patient medically screened. stuart 22:00 Data reviewed: vital signs, nurses notes. Data interpreted: Pulse oximetry: on room air kb is 100 %. Interpretation: normal. Counseling: I had a detailed discussion with the patient and/or guardian regarding: the historical points, exam findings, and any diagnostic results supporting the discharge/admit diagnosis, lab results, radiology results, the need for further work-up and treatment in the hospital. 03/01 19:24 Order name: CBC w/o diff la1 03/01 19:24 Order name: CMP la1 03/01 19:24 Order name: Lactate la1 03/01 19:24 Order name: Blood Culture Adult (2) la1 03/01 19:24 Order name: Urine Microscopic Only la1 03/01 19:24 Order name: Urine Culture la1 03/01 19:24 Order name: SARS RAPID la1 03/01 21:58 Order name: Urine Dipstick-Ancillary; Complete Time: 21:58 EDMS 03/01 22:16 Order name: CBC without Diff; Complete Time: 22:27 EDMS 03/01 22:27 Order name: Lactate; Complete Time: 22:39 EDMS 03/01 22:37 Order name: Comprehensive Metabolic Panel; Complete Time: 22:39 EDMS 03/01 23:26 Order name: Urine Microscopic Only; Complete Time: 23:28 EDMS 03/02 03:04 Order name: CBC with Automated Diff EDMS 03/02 03:06 Order name: Basic Metabolic Panel EDMS 03/01 19:24 Order name: IV; Complete Time: 22:36 la1 03/01 19:24 Order name: Urine Dipstick-Ancillary (obtain specimen); Complete Time: 22:36 [facility] 03/02 05:23 Order name: SARS-COV-2 Antigen Rapid EDMS Administered Medications: 22:35 Drug: Zofran (Ondansetron) 4 mg Route: IVP; Site: right antecubital; tw5 22:35 Drug: Lactated Ringers Solution 1000 ml Route: IV; Rate: 100 ml/hr; Site: right tw5 antecubital; 22:36 Drug: morphine 2 mg Route: IVP; Infused Over: 4 mins; Site: right antecubital; tw5 03/02 02:44 Not Given ([facility] in [facility]): Ertapenem 1 grams IVPB once over 30 mins; (mix in 100 ha1 mL NS) Disposition Summary: 03/01/22 21:07 Hospitalization Ordered Hospitalization Status: Inpatient Admission kb Provider: Abdiaziz Evangelista Condition: Stable mary Problem: new kb Symptoms: are unchanged kb Bed/Room Type: Standard kb Location: Telemetry/MedSurg (Inpatient)(03/02/22 05:03) eb1 Room Assignment: 421(03/02/22 05:03) eb1 Diagnosis - UTI/ Urinary tract infection, site not specified - failed outpatient kb treatment(03/01/22 21:07) Forms: - Medication Reconciliation Form kb - SBAR form kb Signatures: Dispatcher [employer] EDMS Jeniffer Lizararga, THELMAC AMANDA-Calixto Parker MD MD cha Attema, Lee, FNP-C FNP-Jud Tanner RN RN eb1 Naty Ambriz tw5 Randi Gonzalez RN RN eh3 Melanie Beverly, RN RN kb3 Shelley Baker RN ha1 Corrections: (The following items were deleted from the chart) 03/01 21:07 21:07 UTI/ Urinary tract infection, site not specified kb kb 21:51 21:07 Telemetry/MedSurg (Inpatient) kb 3 21:07 kb 3 03/02 05:03 03/01 21:51 [facility]3 eb1 03/02 05:03 03/01 21:51 [facility]3 1
--- NOTE | 2022-03-01 21:08 | ER ---
Nurse's Notes [facility] Name: Vivek Chino Age: 37 yrs Sex: Female : 1985 Arrival Date: 03/01/2022 Time: 19:18 Bed 17 Private MD: Diagnosis: UTI/ Urinary tract infection, site not specified-failed outpatient treatment Presentation: 03/01 19:54 Chief complaint: Patient states: Pt reports she was admitted on Sunday and discharged kb3 Sunday with a UTI. 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 Coronavirus screen: Vaccine status: Patient reports being unvaccinated. Client denies travel out of the [place] in the last 14 days. Ebola Screen: Patient negative for fever greater than or equal to 101.5 degrees Fahrenheit, and additional compatible Ebola Virus Disease symptoms Patient denies exposure to infectious person. Patient denies travel to an Ebola-affected area in the 21 days before illness onset. No symptoms or risks identified at this time. Initial Sepsis Screen: Does the patient meet any 2 criteria? No. Patient's initial sepsis screen is negative. Does the patient have a suspected source of infection? Yes: Dysuria/Frequency/Urgency/UTI. Risk Assessment: Do you want to hurt yourself or someone else? Patient reports no desire to harm self or others. Onset of symptoms was February 27, 2022. 19:54 Method Of Arrival: Ambulatory kb3 19:54 Acuity: CARI 3 kb3 Triage Assessment: 19:57 General: Appears in no apparent distress. Behavior is calm, cooperative. Pain: kb3 Complains of pain in low back area, left low back and abdomen Pain does not radiate. Pain currently is 6 out of 10 on a pain scale. Quality of pain is described as pressure, sharp. GI: Reports lower abdominal pain, nausea. 19:57 : Reports pain in bilateral in suprapubic area flank(s). 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 Last tetanus immunization: unknown. - Social history:: Smoking status: Patient denies any tobacco usage or history of. Screenin:19 Abuse screen: Denies threats or abuse. Denies injuries from another. Nutritional ha1 screening: No deficits noted. Tuberculosis screening: No symptoms or risk factors identified. Fall Risk None identified. Assessment: 21:11 General: Appears uncomfortable, Behavior is calm, cooperative. Pain: Complains of pain ha1 in abdomen and back Pain at worst was 9 out of 10 on a pain scale. Neuro: Level of Consciousness is awake, alert, obeys commands, Oriented to person, place, time, situation. Cardiovascular: Patient's skin is warm and dry. Respiratory: Airway is patent Trachea midline Respiratory effort is even, unlabored. GI: Abdomen is non-distended, obese, Bowel sounds present X 4 quads. Reports. Musculoskeletal: Reports back pain. 22:10 Reassessment: Patient and/or family updated on plan of care and expected duration. Pain ha1 level reassessed. Patient is alert, oriented x 3, equal unlabored respirations, skin warm/dry/pink. 03/02 02:09 GI: Abd is soft and non tender X 4 quads. ha1 Vital Signs: 03/01 19:54 Pulse 71; Resp 18; Temp 98.3; Pulse Ox 100% ; Weight 154.22 kg; Height 5 ft. 4 in. kb3 (162.56 cm); Pain 6/10; 21:14 BP 132 / 84; Pulse 71; Resp 18; Pulse Ox 100% on R/A; ha1 22:10 BP 130 / 80; Pulse 70; Resp 16 S; Pulse Ox 100% on R/A; ha1 19:54 Body Mass Index 58.36 (154.22 kg, 162.56 cm) kb3 ED Course: 19:18 Patient arrived in ED. dt4 19:45 Jen[facility] Lizarraga [facility]C [facility] kb 19:45 Varinder Eagle MD is Attending Physician. kb 19:57 Triage completed. kb3 19:57 Arm band placed on left wrist. kb3 20:51 Attending Physician role handed off by Varinder Eagle MD stuart 20:51 Calixto Martinez MD is Attending Physician. stuart 21:06 Abdiaziz Evangelista MD is Hospitalizing Provider. kb 21:11 Shelley Baker, RN is Primary Nurse. ha1 21:45 No provider procedures requiring assistance completed. Initial lab(s) drawn, by me, tw5 sent to lab. First set of blood cultures drawn by me. 22:20 Inserted saline lock: 20 gauge in right antecubital area, using aseptic technique. tw5 Blood collected. 22:36 Urine Culture Sent. tw5 22:36 Urine Microscopic Only Sent. tw5 22:36 Lactate Sent. tw5 22:36 CMP Sent. tw5 22:37 CBC w/o diff Sent. tw5 03/02 02:09 Allergy band placed. Placed in gown. Bed in low position. Call light in reach. Side ha1 rails up X 1. 02:09 Patient admitted, IV remains in place. ha1 Administered Medications: 03/01 22:35 Drug: Zofran (Ondansetron) 4 mg Route: IVP; Site: right antecubital; tw 22:35 Drug: Lactated Ringers Solution 1000 ml Route: IV; Rate: 100 ml/hr; Site: right tw5 antecubital; 22:36 Drug: morphine 2 mg Route: IVP; Infused Over: 4 mins; Site: right antecubital; tw5 03/02 02:44 Not Given (given in [facility]): Ertapenem 1 grams IVPB once over 30 mins; (mix in 100 ha1 mL NS) Medication: 02:09 VIS not applicable for this client. ha1 Outcome: 03/01 21:07 Decision to Hospitalize by Provider. 03/02 02:08 Admitted to ER Hold. Please see [facility] for further documentation. ha1 Condition: stable Discharge instructions given to patient, Instructed on the need for admit, Demonstrated understanding of instructions. 06:09 Patient left the ED. stuart Signatures: Jeniffer Lizarraga, BALL POINTS INSPECTOR-C BALL POINTS INSPECTOR-Ckb Calixto Martinez MD MD cha Wood, Tiffany tw5 Shelley Baker, RN RN ha1 Melanie Beverly RN RN kb3 Jannet Cross dt4
[2022-03-01 21:57] LABS: Urine Blood Negative (Negative); Urine Glucose Negative (Negative); Urine Protein Negative (Negative); Urine Specific Gravity >=1.030 (1.005-1.030); Urine pH 6.5 (5.0-7.0)
[2022-03-01] MEDS ORDERED: ONDANSETRON 4 MG/2 ML VIAL ONE (22:11)
[2022-03-01] MEDS ORDERED: Ringers Lactate 1,000 ML IV ONE (22:11)
[2022-03-01] MEDS ORDERED: MORPHINE 2 MG/ML SYR ONE (22:11)
[2022-03-01 22:16] LABS: Hematocrit 35.9 % (36.0-45.0); MCV 79.8 fL (80-100); MPV 9.5 fL (7.6-11.3)
[2022-03-01 22:36] LABS: Albumin 3.3 g/dL (3.4-5.0); Bilirubin Total 0.2 mg/dL (0.2-1.0); Potassium 3.6 mmol/L (3.5-5.1); Protein, Total 7.9 g/dL (6.4-8.2)
--- NOTE | 2022-03-01 22:58 | P.HP ---
Certification for Inpatient Patient admitted to: Inpatient With expected LOS: >2 Midnights Patient will require the following post-hospital care: None Practitioner: I am a practitioner with admitting privileges, knowledge of patient current condition, hospital course, and medical plan of care. Services: Services provided to patient in accordance with Admission requirements found in Title 42 Section 412.3 of the Code of Federal Regulations <Carroll Monsalve - Last Filed: 03/01/22 22:55> Patient History Date of Service: 03/01/22 Reason for admission: UTI-MDR/ESBL History of Present Illness: 37-year-old female past medical history with morbid obesity who was admitted to the hospital on 02/27/2022 for pyelonephritis/UTI and subsequently discharged on 02/28/2022 with prescription for Levaquin was called back by attending hospitalist as her urine culture grew out ESBL E. coli. She reports that her symptoms of dysuria, abdominal/flank pain had worsened since she was discharged. She was evaluated here in the emergency department her labs were overall unremarkable. She was started on Invanz as recommended by infectious disease for ESBL E. coli. Will admit for further evaluation and management of UTIMDR - Past Medical/Surgical History Diabetic: No -: Morbid Obesity -: c section Psychosocial/ Personal History: Lives at home with family - Family History Mother -: Heart disease, Diabetes Father -: Hypertension - Social History Smoking Status: Never smoker Alcohol use: No CD- Drugs: No Caffeine use: No Place of Residence: Home <Carroll Monsalve - Last Filed: 03/01/22 22:55> Date of Service: 03/02/22 <Abdiaziz Evangelista - Last Filed: 03/02/22 20:55> Allergies clindamycin Allergy (Verified 02/27/22 14:12) Shortness of breath Home Medications: NK [No Home Meds] 03/02/22 Review of Systems 10-point ROS is otherwise unremarkable Gastrointestinal: Nausea, Abdominal Pain <Carroll Monsalve - Last Filed: 03/01/22 22:55> Physical Examination - Physical Exam General: Alert, In no apparent distress, Obese HEENT: Atraumatic, PERRLA, Mucous membr. moist/pink, EOMI, Sclerae nonicteric Neck: Supple, 2+ carotid pulse no bruit, No LAD, Without JVD or thyroid abnormality Respiratory: Clear to auscultation bilaterally, Normal air movement Cardiovascular: Regular rate/rhythm, Normal S1 S2 Gastrointestinal: Normal bowel sounds, No tenderness Musculoskeletal: No tenderness Integumentary: No rashes Neurological: Normal gait, Normal speech, Normal strength at 5/5 x4 extr, Normal tone, Normal affect Lymphatics: No axilla or inguinal lymphadenopathy - Studies Laboratory Data (last 24 hrs) 03/01/22 21:45: Sodium 141, Potassium 3.6, BUN 12, Creatinine 0.73, Glucose 89, Total Bilirubin 0.2, AST 13 L, ALT 24, Alkaline Phosphatase 72 03/01/22 21:45: WBC 7.40, Hgb 11.6 L, Hct 35.9 L, Plt Count 335 <Carroll Monsalve - Last Filed: 03/01/22 22:55> - Studies Laboratory Data (last 24 hrs) 03/01/22 21:45: Sodium 141, Potassium 3.6, BUN 12, Creatinine 0.73, Glucose 89, Total Bilirubin 0.2, AST 13 L, ALT 24, Alkaline Phosphatase 72 03/01/22 21:45: WBC 7.40, Hgb 11.6 L, Hct 35.9 L, Plt Count 335 <Abdiaziz Evangelista - Last Filed: 03/02/22 20:55> Assessment and Plan - Plan Assessment: Pyelonephritis-UTI with E. coli/ESBL Plan: Pyelonephritis-UTI with E. coli/ESBL: Hospitalist attending discussed case with infectious disease patient will require Invanz IV daily. Repeat blood and urine cultures obtained in emergency department, PICC line to be placed. As needed pain/nausea medications. DVT PPX: Lovenox Code status: Full Discharge Plan: Home Plan to discharge in: 48 Hours - Advance Directives Does patient have a Living Will: No Does patient have a Durable POA for Healthcare: No - Code Status/Comfort Care Code Status Assessed: Yes (Full code) Critical Care: No Time Spent Managing Pts Care (In Minutes): 55 <Carroll Monsalve - Last Filed: 03/01/22 22:55> Physician Review: Patient Assessed, Agree with Above Assessment and Plan <Abdiaziz Evangelista - Last Filed: 03/02/22 20:55>
[2022-03-01 23:22] LABS: Urine Bacteria <20 /HPF (<20); Urine Mucus Slight /HPF (None Seen); Urine RBC <5 /HPF (None Seen)
[2022-03-01] MEDS: Ringers Lactate 1,000 ML IV SCH (23:31)
[2022-03-01] MEDS ORDERED: HYDROCODONE/APAP 5/325 MG TAB ONE (23:53)
[2022-03-02] MEDS ORDERED: ERTAPENEM SODIUM 1 GM VIAL IVPB SCH
[2022-03-02] MEDS: HYDROCODONE/APAP 5/325 MG TAB PO PRN ×4 (00:01→21:17)
[2022-03-02] MEDS ORDERED: ERTAPENEM SODIUM 1 GM VIAL ONE (02:12)
[2022-03-02] MEDS ORDERED: NA CHLORIDE 0.9% 250 ML ONE (02:25)
[2022-03-02 02:52] LABS: Absolute Lymphocytes (CBC) 2.2 K/uL (0.7-4.9); Hematocrit 34.9 % (36.0-45.0); Lymphocytes % 32.1 % (15.3-44.8); MCV 80.5 fL (80-100); MPV 9.3 fL (7.6-11.3); RBC Red Blood Cell Count 4.33 M/uL (3.86-4.86)
[2022-03-02 03:06] LABS: Potassium 3.6 mmol/L (3.5-5.1)
[2022-03-02 05:23] LABS: SARS-CoV-2 Antigen Rapid Res Negative (Negative)
[2022-03-02] MEDS ORDERED: INFLUENZA VACCINE (for 6+ mo) 0.5 ML DOSE IMVAC ONE (08:00)
[2022-03-02] MEDS: Ringers Lactate 1,000 ML IV SCH ×2 (08:29→21:20)
[2022-03-02] MEDS: ENOXAPARIN 40 MG/0.4 ML SQ SCH (08:30)
[2022-03-02] MEDS: ONDANSETRON 4 MG/2 ML VIAL IV PRN (08:41)
[2022-03-02] MEDS: Meropenem 1,000 MG in NA CHLORIDE 0.9% 100 ML IV SCH ×2 (12:49→15:30)
--- NOTE | 2022-03-02 20:58 | P.PN ---
Subjective Date of Service: 03/02/22 Chief Complaint: UTI-MDR/ESBL No acute events overnight. She reports that she has been having some mild right flank pain and dysuria. She denies fevers or chills. Review of Systems 10-point ROS is otherwise unremarkable Genitourinary: Dysuria, Frequency Musculoskeletal: Back Pain (right flank) Physical Examination - Vital Signs Temperature: 97.3 F Blood Pressure: 117/78 Pulse: 66 Respirations: 16 Pulse Ox (%): 96 - Physical Exam General: Alert, In no apparent distress, Oriented x3 HEENT: Atraumatic, PERRLA, Mucous membr. moist/pink, EOMI, Sclerae nonicteric Neck: Supple, JVD not distended Respiratory: Clear to auscultation bilaterally, Normal air movement Cardiovascular: No edema, Regular rate/rhythm, Normal S1 S2, No gallops, No rubs, No murmurs Gastrointestinal: Normal bowel sounds, Soft and benign, Non-distended, No tenderness, No rebound, No guarding Musculoskeletal: No clubbing, Tenderness (right CVA) Integumentary: No rashes Neurological: Normal speech, Cranial nerves 3-12 intact, Normal affect - Studies Laboratory Data (last 24 hrs) 03/01/22 21:45: Sodium 141, Potassium 3.6, BUN 12, Creatinine 0.73, Glucose 89, Total Bilirubin 0.2, AST 13 L, ALT 24, Alkaline Phosphatase 72 03/01/22 21:45: WBC 7.40, Hgb 11.6 L, Hct 35.9 L, Plt Count 335 Assessment And Plan - Plan # Acute ESBL [place] Coli Cystitis with Right-Sided Pyelonephritis # Morbid Obesity - BMI 56.6 kg/m2 # Microscopic Hematuria - Consulted Infectious Diseases and spoke with Dr. Hancock - recommendations appreciated - Recommended 14 days of carbapenem - Today is day 2 of 14 - Requested PICC line - Lactated Ringers' @ 100 mL/hr - Await blood culture results - Does not currently meet sepsis criteria - Pain control Abdiaziz Evangelista M.D. Discharge Plan: Home Plan to discharge in: 48 Hours
--- NOTE | 2022-03-02 22:46 | CON ---
History Of Present Illness: This is a 37-year-old female. I was consulted for pyelonephritis and ur inary tract infection secondary to ESBL. The patient has no significant past medical history. She w as discharged from hospital on 02/27/2022 or when she was treated for pyelonephritis and UTI. The pa camille is readmitted to the hospital for the treatment of ESBL urine infection secondary to [place] a coli with dysuria and abdominal flank pain. The patient denies any nausea, vomiting, chest pain, a bdominal pain, constipation, or diarrhea. Past Medical History: Morbid obesity, . Social History: Nonsmoker. Nondrinker. Family History: Diabetes, heart disease, hypertension. Medications: Meropenem 1 g q.8 hours. See MAR for other medication. Allergies: CLINDAMYCIN. Review of Systems: A 10-point review was performed. Physical Examination: General: This is a 37-year-old female, sitting in bed, not in any acute cardiopulmonary distress. Vital Signs: Temperature 97, pulse 66, respirations 16, blood pressure 117/78. HEENT: Unremarkable. Neck: Supple. Lungs: Basal crackles. Heart: S1, S2. Regular. Abdomen: Soft, nontender. Bowel sounds present. Extremities: No edema. Laboratory Data: Reviewed. WBC 6.9, hemoglobin 11.4, platelets are 311. BUN 11, creatinine 0.6. Assessment And Plan: The patient with urinary tract infection secondary to ESBL, currently being moose ated with meropenem. Pyelonephritis. Total course of 14 days. No other recommendation at this time . We will follow the patient as needed. NF/MODL Voice ID: [id number] Report ID: [id number]
[2022-03-03] MEDS: Meropenem 1,000 MG in NA CHLORIDE 0.9% 100 ML IV SCH ×3 (01:11→17:06)
[2022-03-03] MEDS: HYDROCODONE/APAP 5/325 MG TAB PO PRN ×4 (04:17→23:15)
[2022-03-03 05:36] LABS: Absolute Lymphocytes (CBC) 1.7 K/uL (0.7-4.9); Hematocrit 33.3 % (36.0-45.0); Lymphocytes % 26.3 % (15.3-44.8); MCV 79.4 fL (80-100); MPV 9.3 fL (7.6-11.3); RBC Red Blood Cell Count 4.19 M/uL (3.86-4.86)
[2022-03-03 05:51] LABS: Potassium 3.8 mmol/L (3.5-5.1)
[2022-03-03 07:00] VITALS: BMI 56.9
[2022-03-03] MEDS ORDERED: POTASSIUM 25 MEQ EFFERV TAB PO ONE (09:00)
--- NOTE | 2022-03-03 09:34 | RAD REPORT ---
EXAM DESCRIPTION: RAD - Chest Single View - 03/03/2022 3:39 am ADDENDUM #1 In addition, there is a right upper extremity PICC line with the tip in the mid SVC in good position. No pneumothorax. Electronically signed by: Kirt Hyatt MD 03/03/2022 7:30 AM CDT End of Addendum CLINICAL HISTORY: XR CHEST 1 VIEW CLINICAL HISTORY: PICC LINE PLACEMENT COMPARISON: None FINDINGS: The lungs are clear bilaterally. There is no focal infiltrate, pleural effusion or pneum othorax. The cardiomediastinal contours are unremarkable. There are no acute bony or soft tissue abno rmalities. IMPRESSION: No acute cardiopulmonary process. Electronically signed by: Kirt Hyatt MD 03/03/2022 6:26 AM CDT ADDENDUM #1 In addition, there is a right upper extremity PICC line with the tip in the mid SVC in good position. No pneumothorax. Electronically signed by: Kirt Hyatt MD 03/03/2022 7:30 AM CDT End of Addendum ADDENDUM #1 In addition, there is a right upper extremity PICC line with the tip in the mid SVC in good position. No pneumothorax. Electronically signed by: Kirt Hyatt MD 03/03/2022 7:30 AM CDT End of Addendum EXAM DESCRIPTION: XR CHEST 1 VIEW CLINICAL HISTORY: PICC LINE PLACEMENT COMPARISON: None FINDINGS: The lungs are clear bilaterally. There is no focal infiltrate, pleural effusion or pneum othorax. The cardiomediastinal contours are unremarkable. There are no acute bony or soft tissue abno rmalities. IMPRESSION: No acute cardiopulmonary process. Electronically signed by: Kirt Hyatt MD 03/03/2022 6:26 AM CDT Due to temporary technical issues with the PACS/Fluency reporting system, reports are being signed by the in house radiologists without review as a courtesy to insure prompt reporting. The interpreting radiologist is fully responsible for the content of the report.
[2022-03-03] MEDS: Ringers Lactate 1,000 ML IV SCH ×2 (10:43→15:31)
[2022-03-03] MEDS: ENOXAPARIN 40 MG/0.4 ML SQ SCH (10:43)
--- NOTE | 2022-03-03 15:36 | PN ---
Subjective: Patient is lying in bed. No new complaints. Feels much better today. Still having sig ht back pain. Lower abdominal discomfort. No burning urination, nausea, vomiting, or diarrhea. No problems with antibiotic. Objective: Vital Signs: Reviewed. Lungs: Clear to auscultation. Heart: S1, S2. Regular. Abdomen: Soft. Bowel sounds present. Extremities: No edema. Laboratory Data: Reviewed. Assessment And Plan: Pyelonephritis and urinary tract infection with ESBL. Continue supportive care and antibiotics. We will follow the patient as needed. NF/MODL Voice ID: [id number] Report ID: [id number]
--- NOTE | 2022-03-03 17:42 | P.PN ---
Subjective Date of Service: 03/03/22 Chief Complaint: UTI-MDR/ESBL No acute events overnight. She reports that her flank pain and dysuria seem to have improved. She is now experiencing mild discomfort in her mid-right abdomen. She denies fevers or chills. Review of Systems 10-point ROS is otherwise unremarkable Gastrointestinal: Abdominal Pain (right-sided, mild) Musculoskeletal: Back Pain (right flank, improving) Physical Examination - Vital Signs Temperature: 97.3 F Blood Pressure: 127/76 Pulse: 84 Respirations: 14 Pulse Ox (%): 97 Assessment And Plan - Plan # Acute ESBL [place] Coli Cystitis with Right-Sided Pyelonephritis # Morbid Obesity - BMI 56.6 kg/m2 # Microscopic Hematuria - Consulted Infectious Diseases and spoke with Dr. Hancock - recommendations appreciated - Recommended 14 days of carbapenem - Today is day 3 of 14 (end date: 03/14/2022) - PICC line placed overnight in good position - Appreciate CM assistance in arranging outpatient IV antibiotics - Lactated Ringers' @ 100 mL/hr - Await blood culture results - Does not currently meet sepsis criteria - Pain control Abdiaziz Evangelista M.D.
[2022-03-04] MEDS: Meropenem 1,000 MG in NA CHLORIDE 0.9% 100 ML IV SCH ×3 (00:31→16:38)
[2022-03-04] MEDS: Ringers Lactate 1,000 ML IV SCH (06:04)
[2022-03-04] MEDS: HYDROCODONE/APAP 5/325 MG TAB PO PRN ×2 (06:07→16:44)
[2022-03-04] MEDS: ENOXAPARIN 40 MG/0.4 ML SQ SCH (09:37)
--- NOTE | 2022-03-04 09:37 | P.PN ---
Subjective Date of Service: 03/04/22 Chief Complaint: ESBLpyelonephritis Subjective: Improving (Patient is doing well no new complaints denies any abdominal pain dysuria) Review of Systems 10-point ROS is otherwise unremarkable Physical Examination - Vital Signs Temperature: 97.6 F Blood Pressure: 123/85 Pulse: 76 Respirations: 16 Pulse Ox (%): 96 - Physical Exam General: Alert, In no apparent distress, Oriented x3 Respiratory: Clear to auscultation bilaterally Cardiovascular: No edema, Regular rate/rhythm Gastrointestinal: Normal bowel sounds, Soft and benign, Non-distended Assessment And Plan - Current Problems (Diagnosis) (1) Pyelonephritis Current Visit: Yes Status: Acute - Plan Patient admitted with ESBL pyelonephritis doing well on IV antibiotic he does have a PICC line await home antibiotic Home antibiotic labs reviewed mild microcytic anemia normal renal function vital signs are all stable patient is self-pay will have to remain here for the entire duration of her antibiotic treatment Physician Review: Patient Assessed, Agree with Above Assessment and Plan
[2022-03-05] MEDS: Meropenem 1,000 MG in NA CHLORIDE 0.9% 100 ML IV SCH ×3 (00:08→16:33)
[2022-03-05] MEDS: ENOXAPARIN 40 MG/0.4 ML SQ SCH (08:34)
[2022-03-05] MEDS: ONDANSETRON 4 MG/2 ML VIAL IV PRN (08:51)
--- NOTE | 2022-03-05 09:29 | P.PN ---
Subjective Date of Service: 03/05/22 Chief Complaint: ESBLpyelonephritis Complaining of nausea today no abdominal pain or urinary symptoms Review of Systems General: Weakness Gastrointestinal: Nausea Physical Examination - Vital Signs Temperature: 97.9 F Blood Pressure: 112/55 Pulse: 81 Respirations: 16 Pulse Ox (%): 96 - Physical Exam General: Alert, In no apparent distress, Oriented x3 Neck: Supple Respiratory: Clear to auscultation bilaterally Cardiovascular: No edema Assessment And Plan - Current Problems (Diagnosis) (1) Pyelonephritis Current Visit: Yes Status: Acute Plan: Patient has ESBL pyelonephritis is doing better afebrile planing of some nausea continue with 10 days of IV antibiotic therapy blood cultures are so far negative patient has Zofran ordered Physician Review: Patient Assessed, Agree with Above Assessment and Plan
[2022-03-05 10:42] LABS: Hematocrit 37.8 % (36.0-45.0); MCV 79.7 fL (80-100); MPV 9.4 fL (7.6-11.3); RBC Red Blood Cell Count 4.74 M/uL (3.86-4.86)
[2022-03-05] MEDS: HYDROCODONE/APAP 5/325 MG TAB PO PRN (12:09)
[2022-03-05 23:13] VITALS: O2SAT 99
[2022-03-06] MEDS: Meropenem 1,000 MG in NA CHLORIDE 0.9% 100 ML IV SCH ×3 (01:03→16:26)
[2022-03-06] MEDS: ENOXAPARIN 40 MG/0.4 ML SQ SCH (08:29)
[2022-03-06] MEDS: HYDROCODONE/APAP 5/325 MG TAB PO PRN ×2 (08:31→14:43)
--- NOTE | 2022-03-06 12:34 | PN ---
Subjective: The patient is lying in bed, sitting in easy chair, not in any acute distress. Complain s of back pain and not feeling well. Objective: VITAL SIGNS: Temperature 97, pulse 68, respirations 16, blood pressure 118/90. Lungs: Clear to auscultation. Heart: S1, S2. Regular. Abdomen: Soft, nontender. Bowel sounds present. Extremity: No edema. Laboratory Data: Shows WBC 6.3, hemoglobin 12, platelets are 319. BUN 12, creatinine 0.6. Urinalys is shows WBC 20-50 on 03/01. Assessment And Plan: Urinary tract infection secondary to ESBL organism. Continue meropenem. We wi ll repeat a UA today as the patient continued to have her symptoms. We will follow the patient close ly. NF/MODL Voice ID: [id number] Report ID: [id number]
[2022-03-06] MEDS: ONDANSETRON 4 MG/2 ML VIAL IV PRN (12:51)
[2022-03-06 14:36] LABS: Urine Bilirubin NEGATIVE (Negative); Urine Blood Negative (Negative); Urine Clarity Clear (Clear); Urine Color Light-Yellow (Yellow); Urine Glucose NEGATIVE (Negative); Urine Protein NEGATIVE (Negative); Urine Urobilinogen Normal (Normal); Urine pH 7.5 (5.0-7.0)
--- NOTE | 2022-03-06 15:53 | P.PN ---
Date of Service: 03/06/22 Subjective Patient continues to complain of abdominal pain. Mainly on the right side in the right lower quadrant. We will reimage. Starts hurting more after she eats. Unable to arrange for outpatient antibiotics intravenously. Repeat UA with microscopy after treatment with Levaquin shows that urine cultures are negative. Currently being treated with Invanz because of the possibility of the E. coli being ESBL. However, sensitivities show that multiple beta-lactamase antibiotics will treat this. Will discuss with infectious disease. Physical Examination - Physical Exam General: Alert, In no apparent distress, Obese Respiratory: Clear to auscultation bilaterally, Normal air movement Cardiovascular: Regular rate/rhythm, Normal S1 S2 Gastrointestinal: Normal bowel sounds, No tenderness Neurological: Normal gait, Normal speech, Normal strength at 5/5 x4 extr, Normal tone, Normal affect Assessment and Plan -Assessment Assessment: 1. Pyelonephritis-UTI with E. coli/ESBL 2. Persistent abdominal pain - Plan Plan: Pyelonephritis-UTI with E. coli/ESBL: Continue with Invanz therapy. We will continue for 1 more week Persistent abdominal pain: We will repeat CT abdomen and pelvis
[2022-03-07] MEDS: Meropenem 1,000 MG in NA CHLORIDE 0.9% 100 ML IV SCH ×3 (00:55→17:14)
[2022-03-07] MEDS: ENOXAPARIN 40 MG/0.4 ML SQ SCH (08:39)
--- NOTE | 2022-03-07 10:13 | RAD REPORT ---
EXAM DESCRIPTION: CTAbdomen Pelvis W Contrast - 03/07/2022 9:06 am CLINICAL HISTORY: Abdominal pain. Persistent abd pain; COMPARISON: Abdomen Pelvis W Contrast dated 03/24/2018 TECHNIQUE: Biphasic CT imaging of the abdomen and pelvis was performed with 100 ml non-ionic IV cont rast. All CT scans are performed using dose optimization technique as appropriate and may include automated exposure control or mA/KV adjustment according to patient size. FINDINGS: The lung bases are clear. The liver, spleen, pancreas, adrenal glands and kidneys are within normal limits. No bowel obstruction, free air, free fluid or abscess. Prominent stool is present throughout the colo n. The appendix is normal. Small fat containing umbilical hernia. No evidence of significant lymphade nopathy. No suspicious bony findings. IMPRESSION: No acute intra-abdominal or pelvic finding.
[2022-03-07] MEDS ORDERED: MINERAL OIL 30 ML UCUP PO ONE (15:00)
[2022-03-07] MEDS: DOCUSATE NA 100 MG CAP PO SCH ×2 (15:03→20:59)
--- NOTE | 2022-03-08 01:16 | PN ---
Subjective: Patient is sitting in easy chair, not in any acute distress. Denies any chest pain, abd ominal pain, constipation, or diarrhea. Objective: Vital Signs: Stable. Lungs: Clear to auscultation. Heart: S1, S2. Regular. Abdomen: Soft. Bowel sounds present. Extremities: No edema. Laboratory Data: Reviewed. Abdominal CT does not show any abnormalities. Assessment And Plan: Urinary tract infection secondary to Extended spectrum beta-lactamase. Continu e meropenem. Monitor for signs of infection with WBC and fever trend. Continue hydration and suppor tive care. NF/MODL Voice ID: [id number] Report ID: [id number]
[2022-03-08] MEDS: Meropenem 1,000 MG in NA CHLORIDE 0.9% 100 ML IV SCH ×3 (01:41→18:22)
[2022-03-08] MEDS ORDERED: FAMOTIDINE 20 MG/2 ML VIAL IV ONE (02:08)
[2022-03-08] MEDS: ENOXAPARIN 40 MG/0.4 ML SQ SCH (08:32)
[2022-03-08] MEDS: DOCUSATE NA 100 MG CAP PO SCH ×2 (08:32→21:43)
[2022-03-08] MEDS: ONDANSETRON 4 MG/2 ML VIAL IV PRN ×2 (12:41→18:26)
[2022-03-09] MEDS: Meropenem 1,000 MG in NA CHLORIDE 0.9% 100 ML IV SCH ×3 (00:50→16:48)
[2022-03-09] MEDS ORDERED: PANTOPRAZOLE 40 MG INJ IVP ONE (01:50)
--- NOTE | 2022-03-09 07:49 | PN ---
Subjective: The patient is sitting in easy chair, not in any acute distress. Denies any chest pain, abdominal pain, constipation, or diarrhea. Objective: Vital Signs: Temperature 97, pulse 78, respirations 16, blood pressure 111/73. Lungs: Clear to auscultation. Heart: S1, S2 regular. Abdomen: Soft, nontender. Bowel sounds present. Extremities: Trace edema. Laboratory Data: Reviewed. Assessment/plan: Pyelonephritis with Extended spectrum beta-lactamase infection. Continue meropenem , total 14 days. Continue supportive care and monitor for signs of infection. Repeat UA. No other recommendation at this time. We will follow the patient closely. No other recommendation at this ti co. NF/MODL Voice ID: [id number] Report ID: [id number]
[2022-03-09] MEDS: DOCUSATE NA 100 MG CAP PO SCH (08:31)
[2022-03-09] MEDS: ENOXAPARIN 40 MG/0.4 ML SQ SCH (08:31)
[2022-03-09] MEDS: ONDANSETRON 4 MG/2 ML VIAL IV PRN (11:57)
[2022-03-09 15:45] LABS: Specific Gravity 1.013 (1.005-1.030); Urine Bilirubin NEGATIVE (Negative); Urine Blood Negative (Negative); Urine Clarity Clear (Clear); Urine Color Colorless (Yellow); Urine Glucose NEGATIVE (Negative); Urine Mucus Slight /HPF (None Seen); Urine Protein NEGATIVE (Negative); Urine RBC <5 /HPF (None Seen); Urine Urobilinogen Normal (Normal); Urine pH 6.5 (5.0-7.0)
[2022-03-09 16:31] VITALS: BP 132/67; TEMP 97.5
--- NOTE | 2022-03-09 17:44 | P.PN ---
Date of Service: 03/07/22 Subjective No c/o Physical Examination - Physical Exam General: Alert, In no apparent distress, Obese Assessment and Plan -Assessment Assessment: 1. Pyelonephritis-UTI with E. coli/ESBL 2. Persistent abdominal pain - Plan Plan: Pyelonephritis-UTI with E. coli/ESBL: Continue with Invanz therapy. We will continue for 4 more days Persistent abdominal pain: CT negative
--- NOTE | 2022-03-09 17:45 | P.PN ---
Date of Service: 03/08/22 Subjective Doing well; wanting to go home; will speak with ID Physical Examination - Physical Exam General: Alert, In no apparent distress, Obese Assessment and Plan -Assessment Assessment: 1. Pyelonephritis-UTI with E. coli/ESBL 2. Persistent abdominal pain - Plan Plan: Pyelonephritis-UTI with E. coli/ESBL: Continue with Invanz therapy. We will continue for 2 more days Persistent abdominal pain: CT negative
--- NOTE | 2022-03-09 17:46 | P.DS ---
Discharge Date: 03/09/22 Disposition: ROUTINE DISCHARGE Discharge Condition: GOOD Reason for Admission: ESBLpyelonephritis Brief History of Present Illness: 37-year-old female past medical history with morbid obesity who was admitted to the hospital on 02/27/2022 for pyelonephritis/UTI and subsequently discharged on 02/28/2022 with prescription for Levaquin was called back by attending hospitalist as her urine culture grew out ESBL E. coli. She reports that her symptoms of dysuria, abdominal/flank pain had worsened since she was discharged. She was evaluated here in the emergency department her labs were overall unremarkable. She was started on Invanz as recommended by infectious disease for ESBL E. coli. Will admit for further evaluation and management of UTIMDR Hospital Course: Pt had repeat Ua which was negative; patient seen by ID and cleared to go home. Outpt follow-up with [facility]. Vital Signs/Physical Exam: Temp Pulse Resp BP Pulse Ox 97.5 F 72 14 132/67 100 03/09/22 16:00 03/09/22 16:00 03/09/22 16:00 03/09/22 16:00 03/09/22 16:00 General: Alert, In no apparent distress, Oriented x3 Laboratory Data at Discharge: WBC 6.30 K/uL (4.3-10.9) 03/05/22 10:05 Hgb 12.1 g/dL (12.0-15.0) 03/05/22 10:05 Hct 37.8 % (36.0-45.0) 03/05/22 10:05 Plt Count 319 K/uL (152-406) 03/05/22 10:05 Sodium 140 mmol/L (136-145) 03/03/22 05:16 Potassium 3.8 mmol/L (3.5-5.1) 03/03/22 05:16 BUN 12 mg/dL (7-18) 03/03/22 05:16 Creatinine 0.61 mg/dL (0.55-1.3) 03/03/22 05:16 Glucose 100 mg/dL (74-106) 03/03/22 05:16 Total Bilirubin 0.2 mg/dL (0.2-1.0) 03/01/22 21:45 AST 13 U/L (15-37) L 03/01/22 21:45 ALT 24 U/L (12-78) 03/01/22 21:45 Alkaline Phosphatase 72 U/L (45-117) 03/01/22 21:45 Home Medications: NK [No Home Meds] 03/02/22 Physician Discharge Instructions: -DC IV and DC home -Follow-up with PCP in 1 to 2 weeks -Follow-up with [facility], Dr. Guerrero as needed -Please call Dr. Arenas at [phone] if any questions regarding hospital stay -Please call nursing station at [phone] if any nursing or medication questions -Return to the emergency room if symptoms worsen Diet: Regular Activity: Fall precautions Followup: NONE,NONE [Primary Care Provider] - Time spent managing pt's care (in minutes): 35
== END 2022-03-09 18:00 | disposition home or self-care (01) | DRG 690 ==
LOC: ER 19:15 → ERHOLD 22:58 → 4TH 03-02 05:12
PROVIDERS: ADMIT Internal Medicine; ATTEND Hospitalist
PROC: 02HV33Z Insertion of Infusion Device into Superior Vena Cava, Percutaneous Approach (ICD-10-PCS; principal; 2022-03-01)
DX: N10 Acute pyelonephritis (principal); Z68.43 Body mass index [BMI] 50.0-59.9, adult; Z16.12 Extended spectrum beta lactamase (ESBL) resistance; E66.01 Morbid (severe) obesity due to excess calories; B96.20 Unspecified Escherichia coli [E. coli] as the cause of diseases classified elsewhere; R31.29 Other microscopic hematuria; Z88.1 Allergy status to other antibiotic agents; Z20.822 Contact with and (suspected) exposure to COVID-19
CPT/HCPCS: 36415; 36569; 71045; 74177; 80048; 80053; 81001; 81003; 81015; 83605; 85025; 85027; 87040; 87086; 87088; 87811; 96374; 96375; 99285; C9113; J1335; J1650; J2185; J2270; J2405; J7050; J7120; Q9967

== ENCOUNTER 2022-03-25 19:31 | Emergency (ER) | payer OTHER, SELFPAY ==
--- OUTSIDE RECORDS SUMMARY | 2022-03-25 19:36 | XMS REPORT | Continuity of Care Document ---
:1985 Author Organization [facility] t Address [address] [place] [address] Care Team Providers Name Role Phone Pcp, Patient Does Not Have A Primary Care Physician +[id number] JULIANA RIZO Attending Clinician Unavailable Juliana Arevalo Attending Clinician Doctor Unassigned, [place] Attending Clinician Unavailable ARTURO LOZANO Attending Clinician [...] rs active active ity of problems problems [facility] Allergies, Adverse Reactions, Alerts Allergy Allergy Status Severity Reaction(s) Onset Inactive Treating Comm ents Source Name Type Date Date Clinician CLINDAMY DRUG Active Med SOB Univers KHUSHI INGREDI 09-28 ity of 00:00: [place] 00 Medical Branch LEVOFLOX DRUG Active Other-Cmnt 2018- Univ ers ACIN INGREDI - ity of 00:00: Medical Branch Clindamy Drug Active Shortness of Un jovon khushi Allergy Breath 09-28 ity of 00:00: [place] [facility] Levoflox Propensi Active Other - See 2018- U nivers acin ty to comments 09-28 ity of adverse 00:00: [place] reaction Medical s Branch Social History Social Habit Start Date Stop Date Quantity Comments Source Exposure to 2022-01-26 2022-02-05 Not sure [facility] SARS-CoV-2 (event) 00:00:00 16:37:00 Medica l Branch Sex Assigned At [birth year] [facility] 00:00:00 00:00:00 Medical Branch Smoking Status Start Date Stop Date Source Tobacco smoking consumption [facility] Medical unknown Branch Medications Ordered Filled Start Stop Current Ordering Indication Dosage Frequency Signature Comments Components Source Medication Medication Date Date Medication? Clinician (SIG) Name Name maalox:diph 2021- No 15mL 15 mL, Uni vers enhydrAMINE 07-09 Oral, ity of :lidocaine 07:45: 06:52 ONCE, 1 Raul as 2 % viscous 00 :00 dose, On Medi yelena 1:1:1 Sat Branch ([facility] 07/09/21 at [facility]) 0145, oral Routine suspension 15 mL dexamethaso [...] 07/09/21 at 0145, JOHN predniSONE 2021- No [id number] 40mg Take 2 U nivers 20 mg 07-09 tablets by ity of tablet 00:00: 05:59 mouth [place] 00 :00 daily for Medical 3 days. Branch diphenhydrA 2021- No 25mg 25 mg, Uni vers MINE [...] dose, On Branch Sun06/29/21 at 0600, Routine
membership sales representative approving Restricted medication : ARTURO LOZANO butalbital- Yes [id number] 1{tbl} Take 1 Univers acetaminoph 2-09 tablet by ity of en-caff 00:00: mouth [place] 50-325-40 00 every 4 Medical mg tablet (four) Branch hours as needed for Pain (scale 7-10) (HEADACHE) . butalbital- Yes [id number] 1{tbl} Take 1 Univers acetaminoph 2-09 tablet by ity of en-caff 00:00: mouth [place] 50-325-40 00 every 4 Medical mg tablet (four) Branch hours as needed for Pain (scale 7-10) (HEADACHE) . butalbital- Yes [id number] 1{tbl} Take 1 Univers acetaminoph 2-09 tablet by ity of en-caff 00:00: mouth [place] 50-325-40 00 every 4 Medical mg tablet (four) Branch hours as needed for Pain (scale 7-10) (HEADACHE) . butalbital- Yes [id number] 1{tbl} Take 1 Univers acetaminoph 2-09 tablet by ity of en-caff 00:00: mouth [place] 50-325-40 00 every 4 Medical mg tablet (four) Branch hours as needed for Pain (scale 7-10) (HEADACHE) . albuterol 0 Yes [id number] 2{puff} Inhale 2 Univers 90 9-12 Puffs ity of mcg/actuati 00:00: every 4 Raul as on inhaler 00 (four) Medical hours as Branch needed for Wheezing or Shortness of Breath. benzonatate 0 Yes [id number] 100mg Take 1 Univers 100 mg 9-12 capsule by ity of capsule 00:00: mouth 3 (three) Medical times Branch daily as needed for Cough. bromphenira 0 Yes [id number] 5mL Take 5 mL Univers mine-pseudo 9-12 by mouth 4 it y of ephedrine-D 00:00: (four) [place] (BROMFED 00 times Medical DM) 2-30-10 daily as Bran ch mg/5 mL needed for syrup Congestion /Allergies . albuterol 0 Yes [id number] 2{puff} Inhale 2 Univers 90 9-12 Puffs ity of mcg/actuati 00:00: every 4 Raul as on inhaler 00 (four) Medical hours as Branch needed for Wheezing or Shortness of Breath. benzonatate 0 Yes [id number] 100mg Take 1 Univers 100 mg 9-12 capsule by ity of capsule 00:00: mouth 3 (three) Medical times Branch daily as needed for Cough. bromphenira 0 Yes [id number] 5mL Take 5 mL Univers mine-pseudo 9-12 by mouth 4 it y of ephedrine-D 00:00: (four) [place] (BROMFED 00 times Medical DM) 2-30-10 daily as Bran ch mg/5 mL needed for syrup Congestion /Allergies . albuterol 2020-0 Yes [id number] 2{puff} Inhale 2 Univers 90 9-12 Puffs ity of mcg/actuati 00:00: every 4 Raul as on inhaler 00 (four) Medical hours as Branch needed for Wheezing or Shortness of Breath. benzonatate 2020-0 Yes [id number] 100mg Take 1 Univers 100 mg 9-12 capsule by ity of capsule 00:00: mouth 3 (three) Medical times Branch daily as needed for Cough. bromphenira 0 Yes [id number] 5mL Take 5 mL Univers mine-pseudo 9-12 by mouth 4 it y of ephedrine-D 00:00: (four) [place] (BROMFED 00 times Medical DM) 2-30-10 daily as Bran ch mg/5 mL needed for syrup Congestion /Allergies . albuterol 0 Yes [id number] 2{puff} Inhale 2 Univers 90 9-12 Puffs ity of mcg/actuati 00:00: every 4 Raul as on inhaler 00 (four) Medical hours as Branch needed for Wheezing or Shortness of Breath. benzonatate 0 Yes [id number] 100mg Take 1 Univers 100 mg 9-12 capsule by ity of capsule 00:00: mouth 3 (three) Medical times Branch daily as needed for Cough. albuterol 0 Yes [id number] 2{puff} Inhale 2 Univers 90 9-12 Puffs ity of mcg/actuati 00:00: every 4 Raul as on inhaler 00 (four) Medical hours as Branch needed for Wheezing or Shortness of Breath. benzonatate 0 Yes [id number] 100mg Take 1 Univers 100 mg 9-12 capsule by ity of capsule 00:00: mouth 3 (three) Medical times Branch daily as needed for Cough. albuterol 0 Yes [id number] 2{puff} Inhale 2 Univers 90 9-12 Puffs ity of mcg/actuati 00:00: every 4 Raul as on inhaler 00 (four) Medical hours as Branch needed for Wheezing or Shortness of Breath. benzonatate 0 Yes [id number] 100mg Take 1 Univers 100 mg 9-12 capsule by ity of capsule 00:00: mouth 3 (three) Medical times Branch daily as needed for Cough. bromphenira 2020-0 Yes [id number] 5mL Take 5 mL Univers mine-pseudo 9-12 by mouth 4 it y of ephedrine-D 00:00: (four) [place] (BROMFED 00 times Medical DM) 2-30-10 daily as Bran ch mg/5 mL needed for syrup Congestion /Allergies . bromphenira 2020-0 2021- No [id number] 5mL Take 5 mL Univers mine-pseudo 01-30 02-19 by mouth 4 i ty of ephedrine-D 00:00: 00:00 (four) Raul as M (BROMFED 00 :00 times Medical DM) 2-30-10 daily as Bran ch mg/5 mL needed for syrup Congestion /Allergies . amoxicillin Yes 1{tbl} 1 tablet, Univers -clavulanat 6-25 Oral, ity of e 13:00: Q12H, [place] (AUGMENTIN) 00 First dose Me dical 875-125 mg on Sun per tablet 11/12/20 at 1 tablet 0800, Until Discontinu ed, Routine
Reason for Anti-Infec tive: Documented Infection< br>Documen [place] Infection Site: Abdominal< br>Duratio n of Therapy: Other (see Comments) HYDROcodone 2020- No 1{tbl} 1 tablet, Univers -acetaminop 11-12-25 Oral, ity of hen (NORCO) 06:00: 05:14 [place]CE, 1 [place] 10-325 [place] 00 :00 dose, Fri Medic al tablet 1 11/12/20 at [facility] h tablet 0100, Routine iopamidol 2020- No [id number] 120mL 120 mL, Univers (ISOVUE 11-12-25 Intravenou ity o f 370-500 mL) 05:15: 03:56 s, ONCE, 1 [place] injection 00 :00 dose, Fri Medic al 120 mL 11/12/20 at Branch 0015, Routine FENTanyl PF 2020- No 100ug 100 mcg, Univers (SUBLIMAZE 11-12 06-25 Intravenou it y of (PF)) 04:00: [...] ed, Routine, IV line flushing amoxicillin Yes [id number] 1{tbl} Take 1 Univers -clavulanat 6-24 tablet by ity of e 875-125 00:00: mouth [place] mg per 00 every 12 Medical tablet (twelve) Branch hours. traMADoL 2020-0 Yes [id number] 50mg Take 1 Univers (ULTRAM) 50 6-24 tablet by ity of mg tablet 00:00: mouth [place] 00 every 6 Medical (six) Branch hours as needed for Pain (scale 7-10). Indication s: acute pain ondansetron Yes [id number] 4mg Take 1 Univers (ZOFRAN) 4 6-24 tablet by ity of mg tablet 00:00: mouth [place] 00 every 8 Medical (eight) Branch hours as needed for Nausea and Vomiting (N/V). amoxicillin 2020- No [id number] 1{tbl} Take 1 Univers -clavulanat 6-24 09-12 [...] Indication s: acute pain ondansetron 2020- No [id number] 4mg Take 1 Univers (ZOFRAN) 4 6-24 09-12 tablet by ity of mg tablet 00:00: 00:00 mouth [place] 00 :00 every 8 Medical (eight) Branch hours as needed for Nausea and Vomiting (N/V). amoxicillin 2020- No [id number] 1{tbl} Take 1 Univers -clavulanat 6-24 09-12 tablet by it y of e 875-125 00:00: 00:00 mouth [place] mg per 00 :00 every 12 Medical tablet (twelve) Branch hours. traMADoL 2020-2020- No [id number] 50mg Take 1 Univer s (ULTRAM) 50 6-24 09-12 tablet by it y of mg tablet 00:00: 00:00 mouth [place] 00 :00 every 6 Medical (six) Branch hours as needed for Pain (scale 7-10). Indication s: acute pain ondansetron 2020- No [id number] 4mg Take 1 Univers (ZOFRAN) 4 -11 02-12 tablet by ity of mg tablet 00:00: 00:00 mouth [place] 00 :00 every 8 Medical (eight) Branch hours as needed for Nausea and Vomiting (N/V). ondansetron 2019- No 4mg 4 mg, Slow Univers (ZOFRAN 01-11 IV Push, ity of (PF)) 00:45: 00:43 ONCE, 1 [place] injection 4 00 :00 dose, [facility] Med ical mg 01/11/20 at Branch 1945, JOHN ketorolac 2019- No 15mg 15 mg, Unive rs (TORADOL) 01-11 Slow IV ity of injection 00:45: 00:43 Push, [place] 15 mg 00 :00 ONCE, 1 Medical dose, [facility] 01/11/20 at 1945, JOHN
Fa culty member approving Restricted medication : FABIANO GUERRERO NaCl 0.9% 2019- No 1000mL at 999 Uni vers (NS) bolus 01-10 mL/hr, ity of infusion 23:30: 02:22 1,000 mL, Raul as 1,000 mL 00 :00 IV Medical Infusion, [place] ONCE, 1 dose, [facility] 01/11/20 at 1830, JOHN ibuprofen 2019- Yes [id number] 800mg Take 1 Univers 800 mg 8-23 tablet by ity of tablet 00:00: mouth [place] 00 every 8 Medical (eight) Branch hours as needed for Pain (scale 4-6). ibuprofen 2019-0 Yes [id number] 800mg Take 1 Univers 800 mg 8-23 tablet by ity of tablet 00:00: mouth [place] 00 every 8 Medical (eight) Branch hours as needed for Pain (scale 4-6). ibuprofen 2020-0 Yes [id number] 800mg Take 1 Univers 800 mg 8-23 tablet by ity of tablet 00:00: mouth [place] 00 every 8 Medical (eight) Branch hours as needed for Pain (scale 4-6). ibuprofen 2019-2020- No [id number] 800mg Take 1 Univers 800 mg 8-23 -12 tablet by ity of tablet 00:00: 00:00 mouth [place] 00 :00 every 8 Medical (eight) Branch hours as needed for Pain (scale 4-6). ibuprofen 2020- No [id number] 800mg Take 1 Univers 800 mg 01-10-12 [...] days. Indication s: acute pain ibuprofen Yes [id number] 800mg Take 1 Univers 800 mg 9-11 tablet by ity of tablet 00:00: mouth [place] 00 every 8 Medical (eight) Branch hours. ibuprofen Yes [id number] 800mg Take 1 Univers 800 mg 9-11 tablet by ity of tablet 00:00: mouth [place] 00 every 8 Medical (eight) Branch hours. ibuprofen Yes [id number] 800mg Take 1 Univers 800 mg 9-11 tablet by ity of tablet 00:00: mouth [place] 00 every 8 Medical (eight) Branch hours. ibuprofen Yes [id number] 800mg Take 1 Univers 800 mg 9-11 tablet by ity of tablet 00:00: mouth [place] 00 every 8 Medical (eight) Branch hours. ibuprofen 2020- No [id number] 800mg Take 1 Univers 800 mg 9-11 09-12 tablet by ity of tablet 00:00: 00:00 mouth [place] 00 :00 every 8 Medical (eight) Branch hours. ibuprofen 2020- No [id number] 800mg Take 1 Univers 800 mg 9-11 09-12 tablet by ity of tablet 00:00: 00:00 mouth [place] 00 :00 every 8 Medical (eight) Branch hours. traMADOL 2018- Yes [id number] 50mg Take 1 Un jovon (ULTRAM) 50 5-11 tablet by ity of mg tablet 00:00: mouth [place] 00 every 6 Medical (six) Branch hours as needed for Pain (scale 4-6). maalox/diph 2019-0 Yes [id number] 10mL Take 10 mL Univers enhydrAMINE 5-11 by mouth 4 it y of :lidocaine2 00:00: (four) [place] % viscous 00 times Medical 1:1:1 Susp daily as Branc h suspension needed for Oral mucositis. Rinse and Spit before meals and bedtime. traMADOL 2019-0 Yes [id number] 50mg Take 1 Un jovon (ULTRAM) 50 5-11 tablet by ity of mg tablet 00:00: mouth [place] 00 every 6 Medical (six) Branch hours as needed for Pain (scale 4-6). maalox/diph 2019-0 Yes [id number] 10mL Take 10 mL Univers enhydrAMINE 5-11 by mouth 4 it y of :lidocaine2 00:00: (four) [place] % viscous 00 times Medical 1:1:1 Susp daily as Branc h suspension needed for Oral mucositis. Rinse and Spit before meals and bedtime. traMADOL 2019-0 Yes [id number] 50mg Take 1 Un jovon (ULTRAM) 50 5-11 tablet by ity of mg tablet 00:00: mouth [place] 00 every 6 Medical (six) Branch hours as needed for Pain (scale 4-6). maalox/diph 2019-0 Yes [id number] 10mL Take 10 mL Univers enhydrAMINE 5-11 by mouth 4 it y of :lidocaine2 00:00: (four) [place] % viscous 00 times Medical 1:1:1 Susp daily as Branc h suspension needed for Oral mucositis. Rinse and Spit before meals and bedtime. traMADOL 2019-0 Yes [id number] 50mg Take 1 Un jovon (ULTRAM) 50 5-11 tablet by ity of mg tablet 00:00: mouth [place] 00 every 6 Medical (six) Branch hours as needed for Pain (scale 4-6). maalox/diph 2019-0 Yes [id number] 10mL Take 10 mL Univers enhydrAMINE 5-11 by mouth 4 it y of :lidocaine2 00:00: (four) [place] % viscous 00 times Medical 1:1:1 Susp daily as Branc h suspension needed for Oral mucositis. Rinse and Spit before meals and bedtime. traMADOL 2019-0 Yes [id number] 50mg Take 1 Un jovon (ULTRAM) 50 5-11 tablet by ity of mg tablet 00:00: mouth [place] 00 every 6 Medical (six) Branch hours as needed for Pain (scale 4-6). maalox/diph Yes [id number] 10mL Take 10 mL Univers enhydrAMINE 5-11 by mouth 4 it y of :lidocaine2 00:00: (four) [place] % viscous 00 times Medical 1:1:1 Susp daily as Branc h suspension needed for Oral mucositis. Rinse and Spit before meals and bedtime. traMADOL 2020- No [id number] 50mg Take 1 U nivers (ULTRAM) 50 5-11 09-12 tablet by it y of mg tablet 00:00: 00:00 mouth [place] 00 :00 every 6 Medical (six) Branch hours as needed for Pain (scale 4-6). maalox/diph 2020- No [id number] 10mL Take 10 mL Univers enhydrAMINE 5-11 -12 by mouth 4 i ty of :lidocaine2 00:00: 00:00 (four) Raul as % viscous 00 :00 times Medical 1:1:1 Susp daily as Branc h suspension needed for Oral mucositis. Rinse and Spit before meals and bedtime. traMADOL 2020- No [id number] 50mg Take 1 U nivers (ULTRAM) 50 5- 09-12 tablet by it y of mg tablet 00:00: 00:00 mouth [place] 00 :00 every 6 Medical (six) Branch hours as needed for Pain (scale 4-6). maalox/diph 2020- No [id number] 10mL Take 10 mL Univers enhydrAMINE 5-11 [...] needed for Nausea and Vomiting (N/V). ondansetron 2017-05 Yes 4mg Take 1 Univ [...] No 400mg Take 1 Univ ers (MOTRIN) 1-17 02- tablet by ity o f 400 mg 00:00: 00:00 mouth [place] tablet 00 :00 every 6 Medical (six) Branch hours as needed for Pain (scale 4-6). ibuprofen 2015-05 No 400mg Take 1 Univ ers (MOTRIN) 06-19 tablet by ity o f 400 mg 00:00: 00:00 mouth [place] tablet 00 :00 every 6 Medical (six) Branch hours as needed for Pain (scale 4-6). Vital Signs Vital Name Observation Time Observation Value Comments Source Systolic blood 2022-02-05 23:49:01 136 mm[Hg] Univer sity of [facility] Diastolic blood 2022-02-05 23:49:01 99 mm[Hg] Unive rsity [facility] Heart rate 2022-02-05 23:49:01 77 /min [facility] Respiratory rate 2022-02-05 23:49:01 18 /min [facility] Oxygen saturation in 2022-02-05 23:49:01 99 /min [facility] Arterial blood by [facility] Pulse oximetry Branch Body temperature 2022-02-05 21:38:00 37.17 [place] [facility] Body height 2022-02-05 21:38:[address] [facility] Body weight 2022-02-05 21:38:[address] [facility] BMI 2022-02-05 21:38:00 56.58 kg/m2 [facility] Systolic blood 2021-07-09 08:05:00 142 mm[Hg] Univer sity [facility] Diastolic blood 2021-07-09 08:05:00 91 mm[Hg] Unive rsity [facility] Heart rate 2021-07-09 08:05:00 66 /min [facility] Respiratory rate 2021-07-09 08:05:00 18 /min Univ ersity of [place] [facility] Oxygen saturation in 2021-07-09 08:05:00 97 /min University of Arterial blood by [facility] Pulse oximetry Branch Body temperature 2021-07-09 06:44:00 36.83 [place] Univ ersity of [place] [facility] Body height 2021-07-09 06:44:00 167.6 cm Universi ty of [place] [facility] Body weight 2021-07-09 06:44:00 158.759 kg Universi ty of [place] [facility] BMI 2021-07-09 06:44:00 56.49 kg/m2 Universi ty of [place] [facility] Systolic blood 2021-06-29 11:00:00 140 mm[Hg] Univer sity of pressure [place] [facility] Diastolic blood 2021-06-29 11:00:00 87 mm[Hg] Unive rsity of pressure [place] [facility] Respiratory rate 2021-06-29 11:00:00 19 /min Univ ersity of [place] [facility] Oxygen saturation in 2021-06-29 11:00:00 98 /min University of Arterial blood by [facility] Pulse oximetry Branch Heart rate 2021-06-29 10:21:00 88 /min [facility]i ty [facility] [place] [facility] Body temperature 2021-06-29 10:21:00 36.56 [place] Univ [facility] [place] [facility] Body height 2021-06-29 10:21:00 167.6 cm Universi ty [facility] [place] [facility] Body weight 2021-06-29 10:21:00 156.491 kg [facility]i ty [facility] [place] [facility] BMI 2021-06-29 10:21:00 55.68 kg/m2 [facility]i ty [facility] [place] [facility] Systolic blood 2021-01-30 15:01:00 157 mm[Hg] Univer sity of pressure [place] [facility] Diastolic blood 2021-01-30 15:01:00 111 mm[Hg] Unive rsity of pressure [place] [facility] Heart rate 2021-01-30 15:00:00 79 /min Universi ty [facility] [place] [facility] Body temperature 2021-01-30 15:00:00 36.44 [place] Univ ersity [facility] [place] [facility] Respiratory rate 2021-01-30 15:00:00 20 /min Univ ersity of [place] [facility] Body height 2021-01-30 15:00:00 162.6 cm Universi ty [facility] [place] [facility] Body weight 2021-01-30 15:00:00 149.687 kg Universi ty of [place] [facility] BMI 2021-01-30 15:00:00 56.64 kg/m2 Universi ty [facility] [place] [facility] Oxygen saturation in 2021-01-30 15:00:00 100 /min University of Arterial blood by [place] Medi yelena Pulse oximetry Branch Systolic blood 2020-11-12 05:00:00 116 mm[Hg] Univer sity of pressure [place] [facility] Diastolic blood 2020-11-12 05:00:00 80 mm[Hg] Unive rsity of pressure [place] [facility] Heart rate 2020-11-12 05:00:00 91 /min Universi ty of [place] [facility] Oxygen saturation in 2020-11-12 05:00:00 98 /min University of Arterial blood by [place] [facility] yelena Pulse oximetry Branch Respiratory rate 2020-11-12 04:30:00 16 /min Univ ersity of [place] [facility] Body temperature 2020-11-12 03:30:00 37.5 [place] Univ ers[facility] [place] [facility] Body height 2020-11-12 00:54:00 162.6 cm [facility]i [facility] [place] [facility] Body weight 2020-11-12 00:54:00 149.687 kg [facility]i ty [facility] [place] [facility] BMI 2020-11-12 00:54:00 56.64 kg/m2 [facility]i ty [facility] [place] [facility] Systolic blood 2020-01-12 01:00:00 134 mm[Hg] Univer sity of pressure [place] [facility] Diastolic blood 2020-01-12 01:00:00 83 mm[Hg] Unive rsity of pressure [place] [facility] Heart rate 2020-01-12 01:00:00 73 /min [facility]i ty [facility] [place] [facility] Respiratory rate 2020-01-12 01:00:00 16 /min Univ ersity of [place] [facility] Oxygen saturation in 2020-01-12 01:00:00 98 /min University of Arterial blood by [place] Medi yelena Pulse oximetry Branch Body temperature 2020-01-11 23:11:00 37.11 [place] Univ ers[facility] [place] [facility] Body height 2020-01-11 23:11:[address] [facility] Body weight 2020-01-11 23:11:[address] [facility] BMI 2020-01-11 23:11:00 50.42 kg/m2 [facility] Systolic blood 2019-01-29 17:00:00 125 mm[Hg] Univer sity of pressure [facility] Diastolic blood 2019-01-29 17:00:00 95 mm[Hg] [facility] Heart rate 2019-01-29 17:00:00 64 /min [facility] Respiratory rate 2019-01-29 17:00:00 18 /min [facility] Oxygen saturation in 2019-01-29 17:00:00 100 /min [facility] Arterial blood by [facility] Pulse oximetry [place] Body temperature 2019-01-29 15:07:00 36.61 [place] [facility] Body height 2019-01-29 15:07:[address] [facility] Body weight 2019-01-29 15:07:[address] [facility] BMI 2019-01-29 15:07:00 54.93 kg/m2 [facility] Procedures Procedure Date / Time Performed Performing Clinician Sour e EKG-12 LEAD 2022-02-05 23:53:39 Juliana Rizo [facility] POCT TEST 2022-02-05 22:26:00 Juliana Rizo [facility] URINALYSIS 2022-02-05 22:15:[facility] 2022-02-05 22:04:00 Juliana Rizo [facility] COMP. METABOLIC PANEL 2022-02-05 22:04:00 Juliana Rizo [facility] ([id number]) [facility] CBC WITH DIFF 2022-02-05 22:04:00 Juliana Rizo [facility] POCT GLUCOSE 2022-02-05 21:39:00 Juliana Rizo [facility] (AUTOMATED) [facility] POCT GLUCOSE 2022-02-05 21:37:00 Juliana Rizo [facility] (AUTOMATED) [facility] CONSENT/REFUSAL FOR 2022-02-05 21:24:22 Doctor Unassigned, No Un iversity of [place] DIAGNOSIS AND Name Medical Branch TREATMENT RAPID STREP SCREEN FOR 2021-07-09 06:52:00 Juliana Rizo [facility] GROUP A Medical Branch CONSENT/REFUSAL FOR 2021-07-09 06:38:59 Doctor Unassigned, No Un [facility] of [place] DIAGNOSIS AND Name Medical Branch TREATMENT CONSENT/REFUSAL FOR 2021-06-29 10:08:48 Doctor Unassigned, No Un [facility]ity of [place] DIAGNOSIS AND Name Medical Branch TREATMENT CONSENT/REFUSAL FOR 2021-01-30 14:50:30 Doctor Unassigned, No Un [facility] of [place] DIAGNOSIS AND Name Medical Branch TREATMENT CT ABDOMEN PELVIS W 2020-11-12 04:03:37 Arturo Lozano [facility] CONTRAST Medical Branch POCT TEST 2020-11-12 01:15:00 Arturo Lozano [facility] Medical Branch LIPASE 2020-11-12 01:04:00 Arturo Lozano [facility] COMP. METABOLIC PANEL 2020-11-12 01:04:00 Arturo Lozano [facility] ([id number]) Medical Branch CBC WITH DIFF 2020-11-12 01:04:00 Arturo Lozano [facility] URINALYSIS 2020-11-12 01:04:00 Arturo Lozano [facility] COVID-19 (ID NOW RAPID 2020-11-12 01:04:00 Arturo Lozano [facility] TESTING) Medical Branch NOTICE OF PRIVACY 2020-11-12 00:46:49 Doctor Unassigned, No [facility] PRACTICES Name Medical Branch CONSENT/REFUSAL FOR 2020-11-12 00:46:22 Doctor Unassigned, No [facility] [place] DI[facility]NOSIS AND Name Medical Branch TREATMENT CT ABDOMEN PELVIS WO 2020-01-12 01:38:03 Arjun [facility] CONTRAST Medical Branch LIPASE 2020-01-12 00:41:00 Arjun Clarke [facility] COMP. METABOLIC PANEL 2020-01-12 00:41:00 Arjun Clarke [facility] ([id number]) [facility] CBC WITH DIFF 2020-01-12 00:41:00 Arjun Clarke [facility] URINALYSIS 2020-01-12 00:28:00 Arjun Clarke [facility] POCT TEST 2020-01-12 00:28:00 Arjun Clarke [facility] NOTICE OF PRIVACY 2020-01-11 23:05:20 Doctor Unassigned, No [facility] CONSENT/REFUSAL FOR 2020-01-11 23:05:03 Doctor Unassigned, No [facility] [place] DIAGNOSIS AND Name [facility] TREATMENT XR CHEST 1 VW 2019-01-29 16:47:59 Fabiano Guerrero [facility] NOTICE OF PRIVACY 2019-01-29 14:53:45 Doctor Unassigned, No [facility] CONSENT/REFUSAL FOR 2019-01-29 14:53:28 Doctor Unassigned, No [facility] [place] DIAGNOSIS AND Name [facility] TREATMENT Encounters Start End Encounter Admission Attending Care Care Encounter Source Date/Time Date/Time Type Type Clinicians Facility Department ID 2022-02-05 2022-02-05 Emergency X RIZO, [facility] ERT [id number] Univers 16:40:00 18:57:00 [facility] 2022-02-05 2022-02-05 Emergency Rizo, [facility] 1.2.840.114 [id number] Univers 16:40:00 18:57:00 Juliana RADER 350.1.13.10 i ty of [place] 4.2.7.2.686 [facility] [phone] [facility] [address] 2021-07-09 2021-07-09 Emergency X RIZO, [facility] ERT [id number] Univers 00:46:00 02:08:00 [facility] 2021-07-09 2021-07-09 Emergency Rizo, [facility] 1.2.840.114 [id number] Univers 00:46:00 02:08:00 Juliana RADER 350.1.13.10 i ty of [place] 4.2.7.2.686 [facility] [phone] [facility] [address] [place] 2021-07-09 2021-07-09 Orders Doctor MARK 1.2.840.114 [id number] Univers 00:00:00 00:00:00 Only Unassigned, CHANDRAKANT 350.1.13.10 ity of [place] [facility] 4.2.7.2.686 Raul [phone] [place] [address] [address] 2021-06-29 2021-06-29 Emergency X [facility] ERT [id number] Univers 04:19:00 05:48:00 WAKILI ity of [facility] 2021-06-29 2021-06-29 Emergency [facility] [id number] Univers 04:19:00 05:48:00 Merylalistairrosa Kulkarni PRASANTH 350.1.13.10 ity of [place] 4.2.7.2.6 [facility] [phone] [address] 2021-01-30 2021-01-30 Emergency [facility] 1.2.840.114 [id number] Univers 10:02:00 10:39:00 Jessica Rader 350.1.13.10 ity of [place] 4.2.7.2.686 [facility] [phone] [address] 2021-01-30 2021-01-30 Emergency X [facility] ERT [id number] Univers 09:50:00 09:50:00 ity of [facility] 2020-11-11 2020-11-12 Emergency [facility] [id number] Univers 20:40:00 00:29:00 Arturo Rader 350.1.13.10 ity of [place] 4.2.7.2.686 [facility] [phone] [address] 2020-11-11 2020-11-11 Emergency X [facility] ERT [id number] Univers 19:46:00 19:46:00 ity of [facility] 2020-11-11 2020-11-11 Letter MARK Fields 1.2.385.913 [id number] Univers 00:00:00 00:00:00 (Out) Calixto STALLINGS 350.1.13.10 it y of [facility] 4.2.7.2.686 Raul as [phone] [facility] [address] 2020-01-11 2020-01-11 Emergency [facility] 1.2.840.114 [id number] Univers 18:17:00 21:25:00 Arjun Rader 350.1.13.10 i ty of [address]686 [facility] [phone] [facility] [address] 2020-01-11 2020-01-11 Emergency X [facility] ERT [id number] Univers 18:17:00 18:17:00 ARJUN ity of [facility] 2019-01-29 2019-01-29 Emergency [facility] [id number] Univers 09:57:26 12:45:00 Fabiano Rader 350.1.13.10 i ty of [place] [address]..2.686 [facility] [phone] [place] [address] [place] 2019-01-29 2019-01-29 Orders Doctor MARK 1.2.840.114 [id number] Univers 00:00:00 00:00:00 Only Unassigned, CHANDRAKANT 350.1.13.10 ity of [place] [address]686 Raul as [phone] [address] Results Test Description Test Time Test Comments Results Result Comments Source TROPONIN I 2022-02-05 22:39:54 Test Item Value Reference Range Interpretation Comme nts TROPONIN I (test code = 0.003 ng/mL See_Comment [Au tomated message] The [id number]) system which ge nerated this result tra [...] biotin. Lab Interpretation Normal (test code = 03036-3) [facility]. METABOLIC PANEL ([id number])2022-02-05 22:29:51 Test Item Value Reference Range Interpretation Comments NA (test code = 141 mmol/L 135-145 2168655609) K (test code = 4.1 mmol/L 3.5-5 0327988181) CL (test code = 107 mmol/L 98-108 8316409910) CO2 TOTAL (test code 28 mmol/L 23-31 = 4142495514) AGAP (test code = 2-16 1312592716) BUN (test code = 13 mg/dL 7-23 4266190941) GLUCOSE (test code = 90 mg/dL 70-110 4218685876) CREATININE (test code 0.61 mg/dL 0.5-1.04 = 7971164717) TOTAL BILI (test code 0.2 mg/dL 0.1-1.1 = 1062460523) CALCIUM (test code = 9.0 mg/dL 8.6-10.6 3853690594) T PROTEIN (test code 7.0 g/dL 6.3-8.2 = 3512440597) ALBUMIN (test code = 4.1 g/dL 3.5-5 8704156578) ALK PHOS (test code = 77 U/L 34-122 7631312885) ALTv (test code = 21 U/L 5-35 1742-6) AST(SGOT) (test code 18 U/L 13-40 = 3951880335) eGFR (test code = mL/min/1.73m2 3507201682) ELTON (test code = ELTON) Association of [...] or urine or abnormalities in imaging tests). [id number] 22:26:00 Test Item Value Reference Range Interpretation Comments POCT PREG (test code = 1605) negative On board controls acceptable with present C Line (test code = 3574) POCT PREG LOT # (test code = 3575) [id number] POCT PREG TEST DATE (test 04/19/2023 code = 3576) Lab Interpretation (test code = Normal 11607-0) [facility] acute hospital WITH [id number] 22:16:31 Test Item Value Reference Range Interpretation Comments WBC (test code = See_Comment [Automated 7879-2) message] The sy stem which generated this result transmitted reference range : 4.30 - 11.10 10*3/?L. The reference range was not used to interpret this result as normal/abnormal . RBC (test code = See_Comment [Automated 105-1) message] The sy stem which generated this [...] RDW-SD (test code = 46.5 fL 39-49.9 06630-2) RDW-CV (test code = 15.4 % 12-15.5 788-0) PLT (test code = See_Comment H [Automated 777-3) message] The sy stem which generated this result transmitted reference range : 166 - 358 10*3/ ?L. The reference r manjit was not used to interpret this result as normal/abnormal . MPV (test code = 11.2 fL 9.5-12.9 35858-7) NRBC/100 WBC (test See_Comment [Automat ed code = 6950051492) message] The system which generated this result transmitted reference range : 0.0 - 10.0 /100 WBCs. The refer ence range was not u sed to interpret th is result as normal/abnormal . NRBC x10^3 (test code See_Comment [Auto mated = 8447831019) message] The s ystem which generated this result transmitted reference range : 10*3/?L. The reference range was not used to interpret this result as normal/abnormal . GRAN MAT (NEUT) % 61.2 % (test code = 770-8) IMM GRAN % (test code 0.30 % = 9069238217) LYMPH % (test code = 28.0 % 736-9) MONO % (test code = 7.4 % 5905-5) EOS % (test code = 2.1 % 713-8) BASO % (test code = 1.0 % 706-2) GRAN MAT x10^3(ANC) 4.40 10*3/uL 1.88-7.09 (test code = 2390490114) IMM GRAN x10^3 (test 0-0.06 code = 6729244858) LYMPH x10^3 (test code 2.01 10*3/uL 1.32-3.29 = 731-0) MONO x10^3 (test code 0.53 10*3/uL 0.33-0.92 = 742-7) EOS x10^3 (test code = 0.15 10*3/uL 0.03-0.39 711-2) BASO x10^3 (test code 0.07 10*3/uL 0.01-0.07 = 704-7) Lab Interpretation Abnormal (test code = 75043-7) [facility] GLUCOSE (AUTOMATED)2022-02-05 21:43:51 Test Item Value Reference Range Interpretation Comments POCT GLU (test code = 5323872032) 83 mg/dL 70-110 Lab Interpretation (test code = Normal 95060-9) [facility] GLUCOSE (AUTOMATED)2022-02-05 21:43:50 Test Item Value Reference Range Interpretation Comments POCT GLU (test code = 6208966799) 85 mg/dL 70-110 Lab Interpretation (test code = Normal 92604-2) [facility] 01[facility]41:16 Test Item Value Reference Range Interpretation Comments APPEARANCE (test code = Hazy Clear A 3772074983) COLOR (test code = Yellow Yellow 5708379668) PH (test code = 4.8-8.0 3144084861) SP GRAVITY (test code = 1.003-1.030 8440757798) GLU U QUAL (test code = Normal Normal 2556344118) BLOOD (test code = Negative Negative 6115686421) KETONES (test code = Negative Negative 7056859403) PROTEIN (test code = Negative Negative 2887-8) UROBILIN (test code = Normal Normal 9241106048) BILIRUBIN (test code = Negative Negative 5099699285) NITRITE (test code = Negative Negative 8859351326) LEUK VINCENZO (test code = Negative Negative 1569709389) RBC/HPF (test code = See_Comment H [Autom ated message] 8380947637) The system [employer] generated this result transmitted ref erence range: 0 - 3 HP F. The reference range was not used to int erpret this result as normal/abnormal . WBC/HPF (test code = See_Comment [Autom ated message] 9859700254) The system [employer] generated this result transmitted ref erence range: 0 - 5 HP F. The reference range was not used to int erpret this result as normal/abnormal . BACTERIA (test code = Few Negative A 3496815255) MUCOUS (test code = Marked Negative LPF A 7082998648) SQ EPITH (test code = HPF 0140782078) HYAL CAST (test code = See_Comment [Aut omated message] 3990278464) The system [employer] generated this result transmitted ref erence range: <=2 LPF. The reference range was not used to int erpret this result as normal/abnormal . Lab Interpretation (test Abnormal code = 16177-7) [facility] NOW RAPID TESTING)2020-11-12 01:40:36 Test Item Value Reference Range Interpretation Comments SARS-CoV-2 Rapid ID NOW Not Detected Not Detected (test code = 26017-7) ELTON (test code = ELTON) ID NOW COVID-19 Assay is an isothermal nucleic acid amplification test intended for the qualitative detection of nucleic acid from SARS-CoV-2 viral RNA in nasopharyngeal (ELECTRONICS SPECIALIST) specimens. It is used under Emergency Use [...] indicated. Lab Interpretation Normal (test code = 44531-6) [facility] Metabolic [id number] 01:36:58 Test Item Value Reference Range Interpretation Comments NA (test code = 138 mmol/L 135-145 4493045593) K (test code = 4.0 mmol/L 3.5-5.0 1679865071) CL (test code = 104 mmol/L 98-108 8169502723) CO2 TOTAL (test code = 25 mmol/L 23-31 5305827968) AGAP (test code = 2-16 6244599392) BUN (test code = 14 mg/dL 7-23 1535870190) GLUCOSE (test code = 107 mg/dL 70-110 8937575613) CREATININE (test code = 0.66 mg/dL 0.50-1.04 2488205395) TOTAL BILI (test code = 0.5 mg/dL 0.1-1.7 1459798095) CALCIUM (test code = 9.7 mg/dL 8.6-10.6 3111272672) T PROTEIN (test code = 8.5 g/dL 6.3-8.2 H 6559654339) ALBUMIN (test code = 4.4 g/dL 3.5-5.0 3112250862) ALK PHOS (test code = 68 U/L 34-122 0536233172) ALTv (test code = 24 U/L 5-35 2-6) AST(SGOT) (test code = 20 U/L 13-40 6022347025) eGFR (test code = mL/min/1.73m2 2304955778) ELTON (test code = ELTON) Association of [...] tests). Lab Interpretation Abnormal (test code = 88899-2) [facility], [id number] 01:36:58 Test Item Value Reference Range Interpretation Comments LIPASE (test code = 5609875444) 68 U/L 0-220 Lab Interpretation (test code = Normal 19257-1) [facility] with [id number] 01:24:35 Test Item Value Reference Range Interpretation [...] RDW-SD (test code = 44.0 fL 39.0-49.9 59282-8) RDW-CV (test code = 14.6 % 12.0-15.5 788-0) PLT (test code = See_Comment H [Automated 777-3) message] The sy stem which generated this result transmitted reference range : 166 - 358 10*3/ ?L. The reference r manjit was not used to interpret this result as normal/abnormal . MPV (test code = 11.2 fL 9.5-12.9 87284-6) NRBC/100 WBC (test See_Comment [Automat ed code = 2615254206) message] The system which generated this result transmitted reference range : 0.0 - 10.0 /100 WBCs. The refer ence range was not u sed to interpret th is result as normal/abnormal . NRBC x10^3 (test code <0.01 See_Comment [Auto mated = 9388111055) message] The s ystem which generated this result transmitted reference range : 10*3/?L. The reference range was not used to interpret this result as normal/abnormal . GRAN MAT (NEUT) % 83.7 % (test code = 770-8) IMM GRAN % (test code 0.40 % = 5772682146) LYMPH % (test code = 10.5 % 736-9) MONO % (test code = 4.4 % 5905-5) EOS % (test code = 0.3 % 713-8) BASO % (test code = 0.7 % 706-2) GRAN MAT x10^3(ANC) 7.63 10*3/uL 1.88-7.09 H (test code = 5808250652) IMM GRAN x10^3 (test 0.04 10*3/uL 0.00-0.06 code = 1876954805) LYMPH x10^3 (test code 0.96 10*3/uL 1.32-3.29 L = 731-0) MONO x10^3 (test code 0.40 10*3/uL 0.33-0.92 = 742-7) EOS x10^3 (test code = 0.03 10*3/uL 0.03-0.39 711-2) BASO x10^3 (test code 0.06 10*3/uL 0.01-0.07 = 704-7) Lab Interpretation Abnormal (test code = 50035-3) [facility] [id number] 01:15:00 Test Item Value Reference Range Interpretation Comments POCT PREG (test code = 1605) negative On board controls acceptable with yes C Line (test code = 3574) POCT PREG LOT # (test code = 3575) [id number] POCT PREG TEST DATE (test 05/20/2022 code = 3576) Lab Interpretation (test code = Normal 29792-7) [facility] ABDOMEN PELVIS WO [id number] 02:01:56 No acute abdominal or pelvic abnormality. [...] asymptomatic butsometimes associated with flank pain and/or hematuria.[facility] 2020-01-12 01:27:00 Test Item Value Reference Range Interpretation Comments APPEARANCE (test code = Clear Clear 2697441253) COLOR (test code = Yellow Yellow 6943421819) PH (test code = 4.8-8.0 3340842889) SP GRAVITY (test code = 1.003-1.030 3674283556) GLU U QUAL (test code = Normal Normal 0806586577) BLOOD (test code = Negative Negative INTERFERE NCE FROM 2236158072) ASCORBIC ACID M AY CAUSE FALSE NEG ATIVE RESULT KETONES (test code = Negative Negative 0447562199) PROTEIN (test code = Negative Negative 2887-8) UROBILIN (test code = Normal Normal 7828759710) BILIRUBIN (test code = Negative Negative 9498077833) NITRITE (test code = Negative Negative 8220382228) LEUK VINCENZO (test code = Negative Negative 9578288744) RBC/HPF (test code = See_Comment [Autom ated message] 5265428233) The system [employer] generated this result transmitted ref erence range: 0 - 3 HP F. The reference range was not used to int erpret this result as normal/abnormal . WBC/HPF (test code = <1 See_Comment [Autom ated message] 4072773618) The system [employer] generated this result transmitted ref erence range: 0 - 5 HP F. The reference range was not used to int erpret this result as normal/abnormal . BACTERIA (test code = Few Negative A 2264581381) MUCOUS (test code = Slight Negative LPF A 5055290199) SQ EPITH (test code = HPF 5722042202) HYAL CAST (test code = See_Comment [Aut omated message] 3036631409) The system [employer] generated this result transmitted ref erence range: <=2 LPF. The reference range was not used to int erpret this result as normal/abnormal . Lab Interpretation (test Abnormal code = 29351-1) [facility]. MET[facility]OLIC PANEL (41224)2020-01-12 01:12:00 Test Item Value Reference Range Interpretation Comments NA (test code = 138 mmol/L 135-145 1991068079) K (test code = 4.4 mmol/L 3.5-5 9659370692) CL (test code = 107 mmol/L 98-108 2434234435) CO2 TOTAL (test code = 23 mmol/L 23-31 8319737049) AGAP (test code = 2-16 8626094515) BUN (test code = 12 mg/dL 7-23 9674545097) GLUCOSE (test code = 106 mg/dL 70-110 8783701225) CREATININE (test code 0.57 mg/dL 0.5-1.04 = 5606747825) TOTAL BILI (test code 0.2 mg/dL 0.1-1.1 = 7872625168) CALCIUM (test code = 8.9 mg/dL 8.6-10.6 3443990902) T PROTEIN (test code = 7.3 g/dL 6.3-8.2 1385408280) ALBUMIN (test code = 4.0 g/dL 3.5-5 2964297819) ALK PHOS (test code = 60 U/L 34-122 5392849527) ALTv (test code = 22 U/L 5-35 1742-6) AST(SGOT) (test code = 26 U/L 13-40 8077820509) eGFR Calculation mL/min/1.73m2 (Non-) (test code = 1016715119) eGFR Calculation mL/min/1.73m2 () (test code = 5997831472) ELTON (test code = ELTON) Association of [...] or urine or abnormalities in imaging tests). [facility] [id number] 01:12:00 Test Item Value Reference Range Interpretation Comments LIPASE (test code = 0926018834) 149 U/L 0-220 Lab Interpretation (test code = Normal 24563-9) [facility] with [id number] 01:02:00 Test Item Value Reference Range Interpretation Comments WBC (test code = See_Comment L [Automated 0790-2) message] The sy stem which generated this result transmitted reference range : 4.30 - 11.10 10*3/?L. The reference range was not used to interpret this result as normal/abnormal . RBC (test code = See_Comment [Automated 059-8) message] The sy stem which generated this [...] RDW-SD (test code = 47.7 fL 39-49.9 30655-9) RDW-CV (test code = 15.4 % 12-15.5 788-0) PLT (test code = See_Comment [Automated 777-3) message] The sy stem which generated this result transmitted reference range : 166 - 358 10*3/ ?L. The reference r manjit was not used to interpret this result as normal/abnormal . MPV (test code = 11.9 fL 9.5-12.9 17584-8) NRBC/100 WBC (test See_Comment [Automat ed code = 2319245703) message] The system which generated this result transmitted reference range : 0.0 - 10.0 /100 WBCs. The refer ence range was not u sed to interpret th is result as normal/abnormal . NRBC x10^3 (test code <0.01 See_Comment [Auto mated = 4155683384) message] The s ystem which generated this result transmitted reference range : 10*3/?L. The reference range was not used to interpret this result as normal/abnormal . GRAN MAT (NEUT) % 56.3 % (test code = 770-8) IMM GRAN % (test code 0.30 % = 7499550327) LYMPH % (test code = 34.1 % 736-9) MONO % (test code = 6.7 % 5905-5) EOS % (test code = 2.0 % 713-8) BASO % (test code = 0.6 % 706-2) GRAN MAT x10^3(ANC) 1.93 10*3/uL 1.88-7.09 (test code = 1786729090) IMM GRAN x10^3 (test <0.03 0-0.06 code = 5735568239) LYMPH x10^3 (test code 1.17 10*3/uL 1.32-3.29 L = 731-0) MONO x10^3 (test code 0.23 10*3/uL 0.33-0.92 L = 742-7) EOS x10^3 (test code = 0.07 10*3/uL 0.03-0.39 711-2) BASO x10^3 (test code <0.03 0.01-0.07 = 704-7) Lab Interpretation Abnormal (test code = 78292-4) [facility] [id number] 00:28:00 Test Item Value Reference Range Interpretation Comments POCT PREG (test code = 1605) negative On board controls acceptable with present C Line (test code = 3574) POCT PREG LOT # (test code = 3575) [id number] POCT PREG TEST DATE (test 12-18-2020 code = 3576) Lab Interpretation (test code = Normal 33415-9) [facility] 1 [id number] 16:52:13HISTORY: Chest pain. TECHNIQUE: Portable AP erect [...] Cardiac size is mildly enlarged.CONCLUSIONS: Mild cardiomegaly suspected.[facility]"
[2022-03-25] MEDS ORDERED: KETOROLAC 30 MG/ML INJ ONE (20:27)
[2022-03-25] MEDS ORDERED: ONDANSETRON 4 MG/2 ML VIAL ONE (20:27)
[2022-03-25] MEDS ORDERED: NA CHLORIDE 0.9% 1,000 ML ONE (20:27)
[2022-03-25 20:51] LABS: Urine Blood Negative (Negative); Urine Glucose Negative (Negative); Urine Protein Negative (Negative); Urine Specific Gravity 1.025 (1.005-1.030); Urine pH 7.5 (5.0-7.0)
[2022-03-25 20:56] LABS: Absolute Lymphocytes (CBC) 2.5 K/uL (0.7-4.9); Hematocrit 36.3 % (36.0-45.0); Lymphocytes % 31.1 % (15.3-44.8); MCV 80.2 fL (80-100); MPV 9.3 fL (7.6-11.3); RBC Red Blood Cell Count 4.52 M/uL (3.86-4.86)
[2022-03-25 21:04] LABS: Urine Bacteria <20 /HPF (<20); Urine Mucus Slight /HPF (None Seen); Urine RBC <5 /HPF (None Seen)
[2022-03-25 21:12] LABS: Urine Specific Gravity/Preg 1.025 (1.005-1.030)
[2022-03-25 21:14] LABS: Albumin 3.3 g/dL (3.4-5.0); Bilirubin Total 0.2 mg/dL (0.2-1.0); Potassium 3.8 mmol/L (3.5-5.1); Protein, Total 7.9 g/dL (6.4-8.2)
[2022-03-25] MEDS ORDERED: MORPHINE 4 MG/ML SYR ONE (21:31)
--- NOTE | 2022-03-25 22:25 | RAD REPORT ---
EXAM DESCRIPTION: CTAbdomen Pelvis W Contrast - 03/25/2022 10:00 pm CLINICAL HISTORY: RLQ pain COMPARISON: Abdomen Pelvis W Contrast dated 03/07/2022; Abdomen Pelvis W Contrast dated TECHNIQUE: CT of the abdomen and pelvis was performed. All CT scans are performed using dose optimization technique as appropriate and may include automated exposure control or mA/KV adjustment according to patient size. FINDINGS: Lower chest: No acute abnormality. Liver: No acute abnormality or suspicious lesions. Biliary: No biliary ductal dilatation. Stomach: No significant focal abnormality. Duodenum: No significant focal abnormality. Pancreas: No significant abnormality. Spleen: No significant abnormality. Adrenal: No suspicious lesions. Kidney/ureter: No hydronephrosis. No renal calculi. Retroperitoneum: No retroperitoneal adenopathy. Vascular: No aneurysm. Bowel: No significant focal abnormality. Normal appendix. Peritoneum: No ascites or free air. Bladder: Grossly unremarkable. Reproductive: No adnexal masses. Bones: No acute fracture. Nonaggressive appearing sclerotic lesion in the left iliac bone is unchange d since 2018 and benign. Other: n/a IMPRESSION: No acute intra-abdominal or pelvic finding. Normal appendix. No urinary tract calculi.
--- NOTE | 2022-03-25 23:13 | ER ---
Nurse's Notes [facility] Name: Vivek Chino Age: 37 yrs Sex: Female : 1985 Arrival Date: 03/25/2022 Time: 19:36 Bed 26 Private MD: Diagnosis: Abdominal pain, Generalized Presentation: 03/25 20:02 Chief complaint: Patient states: Pt reports RLQ pain that radiates into right flank kb3 with urinary frequency and suprapubic pain. Coronavirus screen: Vaccine status: Patient reports being unvaccinated. Client denies travel out of the [place] in the last 14 days. Ebola Screen: Patient negative for fever greater than or equal to 101.5 degrees Fahrenheit, and additional compatible Ebola Virus Disease symptoms Patient denies exposure to infectious person. Patient denies travel to an Ebola-affected area in the 21 days before illness onset. Initial Sepsis Screen: Does the patient meet any 2 criteria? No. Patient's initial sepsis screen is negative. Does the patient have a suspected source of infection? No. Patient's initial sepsis screen is negative. Risk Assessment: Do you want to hurt yourself or someone else? Patient reports no desire to harm self or others. Onset of symptoms was March 22, 2022. 20:02 Method Of Arrival: Ambulatory kb3 20:02 Acuity: CARI 3 kb3 Triage Assessment: 20:03 General: Appears uncomfortable, Behavior is calm, cooperative. Pain: Complains of pain kb3 in suprapubic area and right lower quadrant Pain radiates to right low back Pain currently is 9 out of 10 on a pain scale. GI: Reports lower abdominal pain, nausea. 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 Last tetanus immunization: up to date. - Social history:: Smoking status: Patient denies any tobacco usage or history of. Screenin:45 Abuse screen: Denies threats or abuse. Denies injuries from another. Nutritional tw5 screening: No deficits noted. Tuberculosis screening: No symptoms or risk factors identified. Fall Risk None identified. Assessment: 20:44 General: Reports "My right kidney is just killing me. Last time I was here I was here tw5 for like 11 days. I feel like I have been doing everything right.". 20:45 Pain: Pain currently is 9 out of 10 on a pain scale. Neuro: No deficits noted. tw5 Cardiovascular: No deficits noted. Respiratory: No deficits noted. 21:45 Reassessment: No changes from previously documented assessment. Patient and/or family em6 updated on plan of care and expected duration. Pain level reassessed. Patient is alert, oriented x 3, equal unlabored respirations, skin warm/dry/pink. 21:45 GI: Abdomen is round non-distended, Bowel sounds present X 4 quads. Abd is soft and non em6 tender X 4 quads. 22:45 Reassessment: No changes from previously documented assessment. Patient and/or family em6 updated on plan of care and expected duration. Pain level reassessed. Patient is alert, oriented x 3, equal unlabored respirations, skin warm/dry/pink. Vital Signs: 20:02 BP 122 / 86; Pulse 65; Resp 20; Temp 98.2; Pulse Ox 97% ; Weight 151.95 kg; Height 5 kb3 ft. 5 in. (165.10 cm); Pain 9/10; 21:30 BP 128 / 93; Pulse 66; Resp 18; Pulse Ox 100% on R/A; em6 22:45 BP 116 / 82; Pulse 72; Resp 18; Pulse Ox 100% on R/A; em6 20:02 Body Mass Index 55.75 (151.95 kg, 165.10 cm) kb3 ED Course: 19:36 Patient arrived in ED. ja2 20:03 Triage completed. kb3 20:05 Arm band placed on right wrist. kb3 20:12 Jeniffer Lizarraga FNP-C [facility]. kb 20:12 Adryan Iraheta MD is Attending Physician. kb 20:24 Naty Ambriz is Primary Nurse. tw5 20:45 Awaiting lab results, Awaiting CT Scan. tw5 20:45 Patient has correct armband on for positive identification. Placed in gown. Bed in low tw5 position. Call light in reach. Side rails up X 1. Pulse ox on. NIBP on. Door closed. Noise minimized. Moved to private room. Warm blanket given. Verbal reassurance given. 20:45 Initial lab(s) drawn, by me, sent to lab. Urine collected: clean catch specimen, clear. tw5 Inserted saline lock: 20 gauge in right antecubital area, using aseptic technique. Blood collected. 20:46 CBC with Diff Sent. tw5 20:46 CMP Sent. tw5 20:46 Lipase Sent. tw5 20:46 Urine Microscopic Only Sent. tw5 20:55 Urine Dipstick-Ancillary Sent. tw5 22:01 CT Abd/Pelvis - IV Contrast Only In Process Unspecified. EDMS 23:21 No provider procedures requiring assistance completed. IV discontinued, intact, em6 bleeding controlled, No redness/swelling at site. Pressure dressing applied. Administered Medications: 20:46 Drug: NS 0.9% 1000 ml Route: IV; Rate: 1000 ml; Site: right antecubital; tw5 23:02 Follow up: Response: No adverse reaction; IV Status: Completed infusion; IV Intake: em6 1000ml 20:46 Drug: Ketorolac 15 mg Route: IVP; Site: right antecubital; tw5 21:30 Follow up: Response: No adverse reaction em6 20:46 Drug: Zofran (Ondansetron) 4 mg Route: IVP; Site: right antecubital; tw5 21:30 Follow up: Response: No adverse reaction em6 21:33 Drug: morphine 4 mg Route: IVP; Infused Over: 4 mins; Site: right antecubital; tw5 22:20 Follow up: Response: No adverse reaction; RASS: Alert and Calm (0) em6 Medication: 20:45 VIS not applicable for this client. tw5 Intake: 23:02 IV: 1000ml; Total: 1000ml. em6 Outcome: 23:12 Discharge ordered by . mary 23:21 Discharged to home ambulatory. em6 23:21 Condition: stable 23:21 Discharge instructions given to patient, Instructed on discharge instructions, follow up and referral plans. medication usage, Demonstrated understanding of instructions, follow-up care, medications, Prescriptions given X 2. 23:23 Patient left the ED. em6 Signatures: Dispatcher [employer] EDMS Jeniffer Lizarraga, DIRECTOR OF STRATEGY & MOBILE-C DIRECTOR OF STRATEGY & MOBILE-Ckb Trudy Mcdowell ja2 Naty Ambriz tw5 Silvia Fox, RN RN em6 Melanei Beverly, RN RN kb3 Corrections: (The following items were deleted from the chart) 23: 21:45 Reassessment: No changes from previously documented assessment. Patient and/or em6 family updated on plan of care and expected duration. Pain level reassessed. Patient is alert, oriented x 3, equal unlabored respirations, skin warm/dry/pink. em6 23:23 23:22 GI: Abdomen is round non-distended, Bowel sounds present X 4 quads. Abd is soft em6 and non tender X 4 quads. em6
--- NOTE | 2022-03-25 23:13 | EDPHYS ---
Physician Documentation [facility] Name: Vivek Chino Age: 37 yrs Sex: Female : 1985 Arrival Date: 03/25/2022 Time: 19:36 Bed 26 Private MD: ED Physician Adryan Iraheta HPI: 03/25 23:41 This 37 yrs old Female presents to ER via Ambulatory with complaints of Abdominal Pain, kb Back Pain. 23:41 The patient presents with abdominal pain right lower quadrant. Onset: The kb symptoms/episode began/occurred today. The symptoms radiate to the right flank. Associated signs and symptoms: none. The symptoms are described as constant. Modifying factors: The symptoms are alleviated by nothing, the symptoms are aggravated by nothing. Severity of pain: At its worst the pain was moderate in the emergency department the pain is unchanged. The patient has experienced similar episodes in the past. The patient has not recently seen a physician. Pt reports RLQ pain that radiates to right flank. States she has had this several times in the past and it was due to kidney infections. States this normally happens a few days after her period and today is no different. MRI CT TECH: 20:05 LMP 03/14/2022 kb3 Historical: - Allergies: 20:03 Clindamycin; kb3 - Home Meds: 20:03 None [Active]; kb3 - PMHx: 20:03 None; kb3 - PSHx: 20:03 section; Adenoid excision; kb3 - Immunization history:: Adult Immunizations up to date, Client reports having NOT received the Covid vaccine. Last tetanus immunization: up to date. - Social history:: Smoking status: Patient denies any tobacco usage or history of. ROS: 23:41 Constitutional: Negative for fever, chills, and weight loss. kb 23:41 Abdomen/GI: Positive for abdominal pain. 23:41 Back: Positive for flank pain, on the right. 23:41 All other systems are negative. Exam: 23:40 Constitutional: This is a well developed, well nourished patient who is awake, alert, kb and in no acute distress. Head/Face: Normocephalic, atraumatic. ENT: Moist Mucous membranes Cardiovascular: Regular rate and rhythm with a normal S1 and S2. No gallops, murmurs, or rubs. No pulse deficits. Respiratory: Respirations even and unlabored. No increased work of breathing. Talking in full sentences Skin: Warm, dry with normal turgor. Normal color. MS/ Extremity: Pulses equal, no cyanosis. Neurovascular intact. Full, normal range of motion. Neuro: Awake and alert, GCS 15, oriented to person, place, time, and situation. Moves all extremities. Normal gait. Psych: Awake, alert, with orientation to person, place and time. Behavior, mood, and affect are within normal limits. 23:40 Abdomen/GI: Inspection: abdomen appears normal, Bowel sounds: normal, in all quadrants, Palpation: soft, in all quadrants, moderate abdominal tenderness, in the right lower quadrant. Vital Signs: 20:02 BP 122 / 86; Pulse 65; Resp 20; Temp 98.2; Pulse Ox 97% ; Weight 151.95 kg; Height 5 kb3 ft. 5 in. (165.10 cm); Pain 9/10; 21:30 BP 128 / 93; Pulse 66; Resp 18; Pulse Ox 100% on R/A; em6 22:45 BP 116 / 82; Pulse 72; Resp 18; Pulse Ox 100% on R/A; em6 20:02 Body Mass Index 55.75 (151.95 kg, 165.10 cm) kb3 MDM: 20:12 Patient medically screened. kb 23:40 Data reviewed: vital signs, nurses notes. Data interpreted: Pulse oximetry: on room air kb is 100 %. Interpretation: normal. Counseling: I had a detailed discussion with the patient and/or guardian regarding: the historical points, exam findings, and any diagnostic results supporting the discharge/admit diagnosis, lab results, radiology results, the need for outpatient follow up, a family practitioner, to return to the emergency department if symptoms worsen or persist or if there are any questions or concerns that arise at home. 03/25 20:14 Order name: CBC with Diff; Complete Time: 21:03 kb 03/25 20:14 Order name: CMP; Complete Time: 21:17 kb 03/25 20:14 Order name: Lipase; Complete Time: 21:17 kb 03/25 20:14 Order name: Urine Microscopic Only; Complete Time: 21:17 kb 03/25 20:51 Order name: Urine --Ancillary (enter results); Complete Time: 21:17 wm 03/25 20:51 Order name: Urine Dipstick-Ancillary; Complete Time: 21:03 EDMS 03/25 20:14 Order name: IV Saline Lock; Complete Time: 20:46 kb 03/25 20:14 Order name: Labs collected and sent; Complete Time: 20:46 kb 03/25 20:23 Order name: CT Abd/Pelvis - IV Contrast Only; Complete Time: 22:39 kb 03/25 20:53 Order name: Urine Dipstick-Ancillary EDMS 03/25 20:14 Order name: Urine Dipstick-Ancillary (obtain specimen); Complete Time: 20:46 kb 03/25 20:14 Order name: Urine Test (obtain specimen); Complete Time: 20:46 kb Administered Medications: 20:46 Drug: NS 0.9% 1000 ml Route: IV; Rate: 1000 ml; Site: right antecubital; tw5 23:02 Follow up: Response: No adverse reaction; IV Status: Completed infusion; IV Intake: em6 1000ml 20:46 Drug: Ketorolac 15 mg Route: IVP; Site: right antecubital; tw5 21:30 Follow up: Response: No adverse reaction em6 20:46 Drug: Zofran (Ondansetron) 4 mg Route: IVP; Site: right antecubital; tw5 21:30 Follow up: Response: No adverse reaction em6 21:33 Drug: morphine 4 mg Route: IVP; Infused Over: 4 mins; Site: right antecubital; tw5 22:20 Follow up: Response: No adverse reaction; RASS: Alert and Calm (0) em6 Disposition: 03/26 06:03 Co-signature as Attending Physician, Adryan Iraheta MD I agree with the assessment and kdr plan of care. Disposition Summary: 03/25/22 23:12 Discharge Ordered Location: Home kb Condition: Stable kb Diagnosis - Abdominal pain, Generalized kb Followup: kb - With: Private Physician - When: 2 - 3 days - Reason: Recheck today's complaints, Continuance of care, Re-evaluation by your physician Followup: kb - With: Emergency Department - When: As needed - Reason: Worsening of condition Discharge Instructions: - Discharge Summary Sheet kb - Abdominal Pain, Adult, [id number] kb Forms: - Medication Reconciliation Form kb - Thank You Letter kb - Antibiotic Education kb - Prescription Opioid Use kb Prescriptions: - Zofran 4 mg Oral Tablet - take 1 tablet by ORAL route every 6 hours As needed; 10 tablet; Refills: 0, kb Product Selection Permitted - Diclofenac Sodium 75 mg Oral tablet,delayed release (DR/EC) - take 1 tablet by ORAL route 2 times per day As needed; 30 tablet; Refills: 0, kb Product Selection Permitted Signatures: Dispatcher [employer] Jeniffer Allison, PETROLEUM REFINING EQUIPMENT OPERATOR-C AMANDA-Adryan Jansen MD MD kdr Wood, Tiffany 5 Melanie Beverly, EBONY RN kb3 Silvia Fox RN em6
[2022-03-26 00:15] VITALS: TEMP 98.2
[2022-03-26 00:16] VITALS: O2SAT 100
[2022-03-26 00:17] VITALS: BP 116/82
== END 2022-03-25 23:23 | disposition home or self-care (01) ==
LOC: ER 19:31
DX: R10.84 Generalized abdominal pain (principal)
CPT/HCPCS: 36415; 74177; 80053; 81003; 81015; 81025; 83690; 85025; 96361; 96374; 96375; 99284; J2405; J7030; Q9967

== ENCOUNTER 2022-07-05 08:23 | Emergency (ER) | payer SELFPAY ==
--- OUTSIDE RECORDS SUMMARY | 2022-07-05 08:29 | XMS REPORT | Continuity of Care Document ---
:1985 Author Organization [facility] t Address [address] [place] [address] Care Team Providers Name Role Phone Mariposa Lozoya PA-C Primary Care Physician ANDREW TELLEZ Attending Clinician Unavailable Andrew Luque Attending Clinician Doctor Unassigned, [place] Attending Clinician Unavailable LIZETTECLAUDIA Attending Clinician Unavailable Mariposa Lozoya PA-C Attending Clinician MARIPOSA LOZOYA Attending Clinician Unavailable JESSICA DIEGO Attending Clinician Unavailable Jessica Diego DO Attending Clinician JULIANA RIZO Attending Clinician Unavailable Juliana Arevalo Attending Clinician ARTURO LOZANO Attending Clinician Unavailable Arturo Lozano MD Attending Clinician [place] RN Attending Clinician Unavailable Arjun Bragg Attending Clinician ARJUN CLARKE Attending Clinician Unavailable Fabiano Guerrero MD Attending Clinician Payers Payer Name Policy Type Policy Number Effective Date Expiration Date S ource Problems Condition Condition Condition Status Onset Resolution Last Treating Co mments Source Name Details Category Date Date Treatment Clinician Date Relies on Relies on Disease Active 2021-05 Uni vers tubal tubal 1-20 ity of ligation ligation 00:00: [place] as primary as primary 00 Me dical Branch control control method method Dysmenorrh Dysmenorrh Disease Active 2021-05 U nivers ea ea -20 ity of 00:00: [place] 00 Medical Branch Need for Need for Disease Active 2021-05 Unive rs HPV HPV -20 [place] vaccin[place] 00 [place] No known No known Disease Unive rs active active ity of problems problems [facility] Allergies, Adverse Reactions, Alerts Allergy Allergy Status Severity Reaction(s) Onset Inactive Treating Comm ents Source Name Type Date Date Clinician LEVOFLOX DRUG Active Other-Cmnt 2018-0 Univ ers ACIN INGREDI 5-11 ity of 00:00: [place] 00 [facility] Clindamy Drug Active Shortness of 2018-0 Un jovon khushi Allergy Breath -11 ity of 00:00: [place] 00 [facility] Levoflox Propensi Active Other - See 2018-0 U nivers acin ty to comments 5-11 ity of adverse 00:00: [place] reaction 00 [facility] s Branch CLINDAMY DRUG Active Med SOB 2018-0 Univers KHUSHI INGREDI 5-11 ity of 00:00: [place] 00 [facility] Social History Social Habit Start Date Stop Date Quantity Comments Source ASSERTION [facility] History of Passive smoker University of tobacco use [facility] Exposure to 2022-06-22 2022-07-02 Not sure [facility] SARS-CoV-2 00:00:00 09:24:00 [facility] (event) [place] Alcohol intake 2022-07-02 2022-07-02 Lifetime University of 00:00:00 00:00:00 non-drinker [facility] (finding) [place] Tobacco use and 2022-03-29 2022-03-29 Smokeless tobacco Un iversity of exposure 00:00:00 00:00:00 non-user [facility] Sex Ass[birth year] At [birth year] Universit y of 00:00:00 00:00:00 [facility] Smoking Status Start Date Stop Date Source Never smoked tobacco [facility] Tobacco smoking consumption [facility] Branch Medications Ordered Filled Start Stop Current Ordering Indication Dosage Frequency Signature Comments Components Source Medication Medication Date Date Medication? Clinician (SIG) Name Name dexamethaso No 20mg 20 mg, Uni vers ne 07-02 Slow IV ity of (DECADRON 18:30: 18:30 Push, [place] PHOSPHATE) 00 :00 ONCE, 1 Medica l injection dose, On Branch 20 mg [place] 07/02/22 at 1230, Routine cefTRIAXone 2022- No 1000mg 1,000 mg, Univers (ROCEPHIN) 07-02 IV ity of 1,000 mg in 17:30: 18:39 Piggyback, [place] NaCl 0.9% 00 :00 ONCE, 1 Medical (NS) 50 mL dose, On [facility] h MINI-BAG [place] 07/02/22 at 1130, Administer over 30 Minutes, 50 mL
Reas on for Anti-Infec tive: Documented Infection< br>Documen [place] Infection Site: HEENT<br&g t;Duration of Therapy: 7 days iopamidol 2022- No [id number] 87mL 87 mL, Univers (ISOVUE 07-02 Intravenou ity o f 370-500 mL) 16:15: 16:30 s, ONCE, 1 [place] injection 00 :00 dose, On Medica l 87 mL [facility] 07/02/22 at 1030, Routine ketorolac 2022- No 30mg 30 mg, Unive rs (TORADOL) 07-02 Slow IV ity of injection 16:15: 15:28 Push, [place] 30 mg 00 :00 ONCE, 1 Medical dose, On Branch 07/02/22 at 1015, Routine dexamethaso 2022- No 10mg 10 mg, Uni vers ne 07-02 Oral, ity of (DECADRON 16:15: 16:15 ONCE, 1 [place] PHOSPHATE[place] 00 :00 dose, On Medic al injection Sun Branch 10 mg 07/02/22 at 1015, Routine NaCl 0.9% 2022- No 1000mL at 999 Uni vers (NS) bolus 2-12 02-12 mL/hr, ity of infusion 16:00: 16:59 1,000 mL, [place] as 1,000 mL 00 :00 IV Medical Infusion, Branch ONCE, 1 dose, On 07/02/22 at 1000, JOHN maalox:diph 2022- No 15mL 15 mL, Uni vers enhydrAMINE 2-04 21-12 Oral, ity of :lidocaine 15:15: 15:28 ONCE, 1 [place] 2 % viscous 00 :00 dose, On Medi yelena 1:1:1 [place] Branch (FIRST-MOUT 07/02/22 at [facility]) 0915, oral Routine suspension 15 mL ketorolac 2022-0 Yes [id number] 10mg Take 1 Un jovon 10 mg 2-12 tablet by ity of tablet 00:00: mouth [place] 00 every 6 Medical (six) Branch hours as needed for Pain (scale 7-10). traMADoL 50 2022-0 Yes [id number] 50mg Take 1 Univ ers mg tablet 2-12 tablet by ity o f 00:00: mouth [place] 00 every 6 Medical (six) Branch hours as needed for Pain (scale 7-10). Indication s: acute pain cefpodoxime 2022- Yes [id number] 100mg Take 1 Univers 100 mg 07-02 tablet by ity of tablet 00:00: 05:59 mouth in [place] 00 :00 the Medical morning Branch and 1 tablet in the evening. Do all this for 10 days. predniSONE 2022- Yes [id number] 40mg Take 2 Univers 20 mg 07-02-18 tablets by ity of tablet 00:00: 05:59 mouth [place] 00 :00 every Medical morning Branch for 5 days. cefdinir 2022-0 2022- No [id number] 300mg Take 1 U nivers 300 mg 2-04 21-12 capsule by ity of capsule 00:00: 00:00 mouth [place] 00 :00 every 12 Medical (twelve) Branch hours for 7 days. predniSONE 2022-0 2022- No [id number] 40mg Take 2 Univers 20 mg 2-04 21-12 tablets by ity of tablet 00:00: 00:00 mouth [place] 00 :00 every Medical morning Branch for 5 days. maalox:diph 2021-0 2021- No 15mL 15 mL, Uni vers enhydrAMINE 2-19 02-19 Oral, ity of :lidocaine 07:45: 06:52 ONCE, 1 [place] 2 % viscous 00 :00 dose, On Medi yelena 1:1:1 Sat Branch (FIRST-MOUT 07/09/21 at [facility]) 0145, oral Routine suspension 15 mL dexamethaso No 10mg 10 mg, Uni vers ne 07-09 Intramuscu ity of (DECADRON 07:45: 06:52 [place], ONCE, [place] PHOSPHATE) 00 :00 1 dose, On Med ical injection Sat Branch 10 mg 07/09/21 at 0145, STAT ketorolac No 60mg 60 mg, Unive rs (TORADOL) 07-09 Intramuscu ity of injection 07:45: 06:53 [place], ONCE, [place] 60 mg 00 :00 1 dose, On Medical Sat Branch 07/09/21 at 0145, JOHN predniSONE No [id number] 40mg Take 2 U nivers 20 mg 07-09 tablets by ity of tablet 00:00: 05:59 mouth [place] 00 :00 daily for Medical 3 days. Branch diphenhydrA No 25mg 25 mg, Uni vers MINE 06-29 Slow IV ity of (BENADRYL) 12:00: 11:07 Push, [place] injection 00 :00 ONCE, 1 Medical 25 mg dose, On Branch 06/29/21 at 0600, STAT metoclopram No 10mg 10 mg, Uni vers rai HCl 06-29 Slow IV ity of (REGLAN) 12:00: 11:07 Push, [place] injection 00 :00 ONCE, 1 Medical 10 mg dose, On Branch 06/29/21 at 0600, JOHN ketorolac No 30mg 30 mg, Unive rs (TORADOL) 06-29 Slow IV ity of injection 12:00: 11:07 Push, [place] 30 mg 00 :00 ONCE, 1 Medical dose, On Branch 06/29/21 at 0600, Routine
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 butalbital- Yes [id number] 1{tbl} Take 1 Univers acetaminoph 2-09 tablet by ity of en-caff 00:00: mouth [place] 50-325-40 00 every 4 Medical mg tablet (four) Branch hours as needed for Pain (scale 7-10) (HEADACHE) . butalbital- Yes [id number] 1{tbl} Take 1 Univers acetaminoph 2-09 tablet by ity of en-caff 00:00: mouth [place] 50-325-40 00 every 4 Medical mg tablet (four) Branch hours as needed for Pain (scale 7-10) (HEADACHE) . butalbital- Yes [id number] 1{tbl} Take 1 Univers acetaminoph 2-09 tablet by ity of en-caff 00:00: mouth [place] 50-325-40 00 every 4 Medical mg tablet (four) Branch hours as needed for Pain (scale 7-10) (HEADACHE) . butalbital- Yes [id number] 1{tbl} Take 1 Univers acetaminoph 2-09 tablet by ity of en-caff 00:00: mouth [place] 50-325-40 00 every 4 Medical mg tablet (four) Branch hours as needed for Pain (scale 7-10) (HEADACHE) . butalbital- Yes [id number] 1{tbl} Take 1 Univers acetaminoph 2-09 tablet by ity of en-caff 00:00: mouth [place] 50-325-40 00 every 4 Medical mg tablet (four) Branch hours as needed for Pain (scale 7-10) (HEADACHE) . butalbital- Yes [id number] 1{tbl} Take 1 Univers acetaminoph 2-09 tablet by ity of en-caff 00:00: mouth [place] 50-325-40 00 every 4 Medical mg tablet (four) Branch hours as needed for Pain (scale 7-10) (HEADACHE) . butalbital- Yes [id number] 1{tbl} Take 1 Univers acetaminoph 2-09 tablet by ity of en-caff 00:00: mouth [place] 50-325-40 00 every 4 Medical mg tablet (four) Branch hours as needed for Pain (scale 7-10) (HEADACHE) . butalbital- Yes [id number] 1{tbl} Take 1 Univers acetaminoph 2-09 tablet by ity of en-caff 00:00: mouth [place] 50-325-40 00 every 4 Medical mg tablet (four) Branch hours as needed for Pain (scale 7-10) (HEADACHE) . butalbital- Yes [id number] 1{tbl} Take 1 Univers acetaminoph 2-09 tablet by ity of en-caff 00:00: mouth [place] 50-325-40 00 every 4 Medical mg tablet (four) Branch hours as needed for Pain (scale 7-10) (HEADACHE) . butalbital- Yes [id number] 1{tbl} Take 1 Univers acetaminoph 2-09 tablet by ity of en-caff 00:00: mouth [place] 50-325-40 00 every 4 Medical mg tablet (four) Branch hours as needed for Pain (scale 7-10) (HEADACHE) . butalbital- Yes [id number] 1{tbl} Take 1 Univers acetaminoph 2-09 tablet by ity of en-caff 00:00: mouth [place] 50-325-40 00 every 4 Medical mg tablet (four) Branch hours as needed for Pain (scale 7-10) (HEADACHE) . albuterol Yes [id number] 2{puff} Inhale 2 Univers 90 9-12 Puffs ity of mcg/actuati 00:00: every 4 [place] as on inhaler 00 (four) Medical hours as Branch needed for Wheezing or Shortness of Breath. benzonatate Yes [id number] 100mg Take 1 Univers 100 mg 9-12 capsule by ity of capsule 00:00: mouth 3 [place] 00 (three) Medical times Branch daily as needed for Cough. bromphenira Yes [id number] 5mL Take 5 mL Univers mine-pseudo 9-12 by mouth 4 it y of ephedrine-D 00:00: (four) [place] M (BROMFED 00 times Medical DM) 2-30-10 daily as Bran ch mg/5 mL needed for syrup Congestion /Allergies . albuterol Yes [id number] 2{puff} Inhale 2 Univers 90 9-12 Puffs ity of mcg/actuati 00:00: every 4 [place] as on inhaler 00 (four) Medical hours as Branch needed for Wheezing or Shortness of Breath. benzonatate Yes [id number] 100mg Take 1 Univers 100 mg 9-12 capsule by ity of capsule 00:00: mouth 3 [place] 00 (three) Medical times Branch daily as needed for Cough. bromphenira Yes [id number] 5mL Take 5 mL Univers mine-pseudo 9-12 by mouth 4 it y of ephedrine-D 00:00: (four) [place] M (BROMFED 00 times Medical DM) 2-30-10 daily as Bran ch mg/5 mL needed for syrup Congestion /Allergies . albuterol Yes [id number] 2{puff} Inhale 2 Univers 90 9-12 Puffs ity of mcg/actuati 00:00: every 4 [place] as on inhaler 00 (four) Medical hours as Branch needed for Wheezing or Shortness of Breath. benzonatate Yes [id number] 100mg Take 1 Univers 100 mg 9-12 capsule by ity of capsule 00:00: mouth 3 [place] 00 (three) Medical times Branch daily as needed for Cough. bromphenira 0 Yes [id number] 5mL Take 5 mL Univers mine-pseudo 9-12 by mouth 4 it y of ephedrine-D 00:00: (four) [place] M (BROMFED 00 times Medical DM) 2-30-10 daily as Bran ch mg/5 mL needed for syrup Congestion /Allergies . albuterol Yes [id number] 2{puff} Inhale 2 Univers 90 9-12 Puffs ity of mcg/actuati 00:00: every 4 [place] as on inhaler 00 (four) Medical hours as Branch needed for Wheezing or Shortness of Breath. benzonatate 0 Yes [id number] 100mg Take 1 Univers 100 mg 9-12 capsule by ity of capsule 00:00: mouth 3 (three) Medical times Branch daily as needed for Cough. albuterol 2020-0 Yes [id number] 2{puff} Inhale 2 Univers 90 9-12 Puffs ity of mcg/actuati 00:00: every 4 [place] as on inhaler 00 (four) Medical hours as Branch needed for Wheezing or Shortness of Breath. benzonatate 2020-0 Yes [id number] 100mg Take 1 Univers 100 mg 9-12 capsule by ity of capsule 00:00: mouth (three) Medical times Branch daily as needed for Cough. albuterol 2020-0 Yes [id number] 2{puff} Inhale 2 Univers 90 9-12 Puffs ity of mcg/actuati 00:00: every 4 [place] as on inhaler 00 (four) Medical hours as Branch needed for Wheezing or Shortness of Breath. benzonatate 2020-0 Yes [id number] 100mg Take 1 Univers 100 mg 9-12 capsule by ity of capsule 00:00: mouth (three) Medical times Branch daily as needed for Cough. albuterol 2020-0 Yes [id number] 2{puff} Inhale 2 Univers 90 9-12 Puffs ity of mcg/actuati 00:00: every 4 [place] as on inhaler 00 (four) Medical hours as Branch needed for Wheezing or Shortness of Breath. benzonatate 2020-0 Yes [id number] 100mg Take 1 Univers 100 mg 9-12 capsule by ity of capsule 00:00: mouth (three) Medical times Branch daily as needed for Cough. albuterol 2020-0 Yes [id number] 2{puff} Inhale 2 Univers 90 9-12 Puffs ity of mcg/actuati 00:00: every 4 [place] as on inhaler 00 (four) Medical hours as Branch needed for Wheezing or Shortness of Breath. benzonatate 2020-0 Yes [id number] 100mg Take 1 Univers 100 mg 9-12 capsule by ity of capsule 00:00: mouth 3 (three) Medical times Branch daily as needed for Cough. albuterol 2020-0 Yes [id number] 2{puff} Inhale 2 Univers 90 9-12 Puffs ity of mcg/actuati 00:00: every 4 [place] as on inhaler 00 (four) Medical hours as Branch needed for Wheezing or Shortness of Breath. benzonatate 2020-0 Yes [id number] 100mg Take 1 Univers 100 mg 9-12 capsule by ity of capsule 00:00: mouth 3 (three) Medical times Branch daily as needed for Cough. albuterol 2020-0 Yes [id number] 2{puff} Inhale 2 Univers 90 9-12 Puffs ity of mcg/actuati 00:00: every 4 [place] as on inhaler 00 (four) Medical hours as Branch needed for Wheezing or Shortness of Breath. benzonatate 2020-0 Yes [id number] 100mg Take 1 Univers 100 mg 9-12 capsule by ity of capsule 00:00: mouth 3 (three) Medical times Branch daily as needed for Cough. albuterol 2020-0 Yes [id number] 2{puff} Inhale 2 Univers 90 9-12 Puffs ity of mcg/actuati 00:00: every 4 [place] as on inhaler 00 (four) Medical hours as Branch needed for Wheezing or Shortness of Breath. albuterol 0 Yes [id number] 2{puff} Inhale 2 Univers 90 9-12 Puffs ity of mcg/actuati 00:00: every 4 [place] as on inhaler 00 (four) Medical hours as Branch needed for Wheezing or Shortness of Breath. benzonatate 0 Yes [id number] 100mg Take 1 Univers 100 mg 9-12 capsule by ity of capsule 00:00: mouth 3 (three) Medical times Branch daily as needed for Cough. albuterol 2020-0 Yes [id number] 2{puff} Inhale 2 Univers 90 9-12 Puffs ity of mcg/actuati 00:00: every 4 [place] on inhaler 00 (four) Medical hours as Branch needed for Wheezing or Shortness of Breath. benzonatate 2020-0 Yes [id number] 100mg Take 1 Univers 100 mg 9-12 capsule by ity of capsule 00:00: mouth 3 (three) Medical times Branch daily as needed for Cough. benzonatate 2020-0 Yes [id number] 100mg Take 1 Univers 100 mg 9-12 capsule by ity of capsule 00:00: mouth 3 (three) Medical times Branch daily as needed for Cough. bromphenira Yes [id number] 5mL Take 5 mL Univers mine-pseudo 9-12 by mouth 4 it y of ephedrine-D 00:00: (four) [place] (BROMFED 00 times Medical DM) 2-30-10 daily as Bran ch mg/5 mL needed for syrup Congestion /Allergies . albuterol Yes [id number] 2{puff} Inhale 2 Univers 90 9-12 Puffs ity of mcg/actuati 00:00: every 4 [place] as on inhaler 00 (four) Medical hours as Branch needed for Wheezing or Shortness of Breath. benzonatate Yes [id number] 100mg Take 1 Univers 100 mg 9-12 capsule by ity of capsule 00:00: mouth 3 [place] 00 (three) Medical times Branch daily as needed for Cough. bromphenira 2021- No [id number] 5mL Take 5 mL Univers mine-pseudo 9-12 02-19 by mouth 4 i ty of ephedrine-D 00:00: 00:00 (four) [place] M (BROMFED 00 :00 times Medical DM) 2-30-10 daily as Bran ch mg/5 mL needed for syrup Congestion /Allergies . amoxicillin Yes 1{tbl} 1 tablet, Univers -clavulanat 6-25 Oral, ity of e 13:00: Q12H, [place] (AUGMENTIN) 00 First dose Me dical 875-125 mg on Fri Branch per tablet 11/12/20 at 1 tablet 0800, Until Discontinu ed, Routine
Reason for Anti-Infec tive: Documented Infection< br>Documen [place] Infection Site: Abdominal< br>Duratio n of Therapy: Other (see Comments) HYDROcodone 2020- No 1{tbl} 1 tablet, Univers -acetaminop 6-25 06-25 Oral, ity of hen (NORCO) 06:00: 05:14 ONCE, 1 [place] 10-325 mg 00 :00 dose, Fri Medic al tablet 1 11/12/20 at Branc h tablet 0100, Routine iopamidol 2020- No [id number] 120mL 120 mL, Univers (ISOVUE 6-25 06-25 Intravenou ity o f 370-500 mL) [...] ed, Routine, IV line flushing amoxicillin Yes [id number] 1{tbl} Take 1 Univers -clavulanat 6-24 tablet by ity of e 875-125 00:00: mouth [place] mg per 00 every 12 Medical tablet (twelve) Branch hours. traMADoL Yes [id number] 50mg Take 1 Univers (ULTRAM) 50 6-24 tablet by ity of mg tablet 00:00: mouth [place] 00 every 6 Medical (six) Branch hours as needed for Pain (scale 7-10). Indication s: acute pain ondansetron Yes [id number] 4mg Take 1 Univers (ZOFRAN) 4 6-24 tablet by ity of mg tablet 00:00: mouth [place] 00 every 8 Medical (eight) Branch hours as needed for Nausea and Vomiting (N/V). amoxicillin 2020- No [id number] 1{tbl} Take 1 Univers -clavulanat 6-24 09-12 [...] Indication s: acute pain ondansetron 2020- No [id number] 4mg Take 1 Univers (ZOFRAN) 4 11-11 tablet by ity of mg tablet 00:00: 00:00 mouth [place] 00 :00 every 8 Medical (eight) Branch hours as needed for Nausea and Vomiting (N/V). amoxicillin 2020- No [id number] 1{tbl} Take 1 Univers -clavulanat 11-11 tablet by it y of e 875-125 00:00: 00:00 mouth [place] mg per 00 :00 every 12 Medical tablet (twelve) Branch hours. traMADoL 2020- No [id number] 50mg Take 1 Univer s (ULTRAM) 50 11-11 tablet by it y of mg tablet 00:00: 00:00 mouth [place] 00 :00 every 6 Medical (six) Branch hours as needed for Pain (scale 7-10). Indication s: acute pain ondansetron 2020- No [id number] 4mg Take 1 Univers (ZOFRAN) 4 11-11 tablet by ity of mg tablet 00:00: 00:00 mouth [place] 00 :00 every 8 Medical (eight) Branch hours as needed for Nausea and Vomiting (N/V). ondansetron 2019- No 4mg 4 mg, Slow Univers (ZOFRAN 01-11 IV Push, ity of (PF)) 00:45: 00:43 ONCE, 1 [place] injection 4 00 :00 dose, [place] Med ical mg 01/11/20 at Branch 1945, JOHN ketorolac 2019- No 15mg 15 mg, Unive rs (TORADOL) 01-11 Slow IV ity of injection 00:45: 00:43 Push, [place] 15 mg 00 :00 ONCE, 1 Medical dose, [place] Branch 01/11/20 at 1945, JOHN
Fa culty member approving Restricted medication : FABIANO GUERRERO NaCl 0.9% 2019- No 1000mL at 999 Uni vers (NS) bolus 01-10 mL/hr, ity of infusion 23:30: 02:22 1,000 mL, [place] 1,000 mL 00 :00 IV Medical Infusion, Branch ONCE, 1 dose, [place] 01/11/20 at 1830, JOHN ibuprofen 2020-0 Yes [id number] 800mg Take 1 Univers 800 mg 8-23 tablet by ity of tablet 00:00: mouth [place] 00 every 8 Medical (eight) Branch hours as needed for Pain (scale 4-6). ibuprofen 2019-0 Yes [id number] 800mg Take 1 Univers 800 mg 8-23 tablet by ity of tablet 00:00: mouth [place] 00 every 8 Medical (eight) Branch hours as needed for Pain (scale 4-6). ibuprofen 2019- Yes [id number] 800mg Take 1 Univers 800 mg 8-23 tablet by ity of tablet 00:00: mouth [place] 00 every 8 Medical (eight) Branch hours as needed for Pain (scale 4-6). ibuprofen 2019-2020- No [id number] 800mg Take 1 Univers 800 mg 8-23 09-12 tablet by ity of tablet 00:00: 00:00 mouth [place] 00 :00 every 8 Medical (eight) Branch hours as needed for Pain (scale 4-6). ibuprofen 2020- No [id number] 800mg Take 1 Univers 800 mg 8-23 09-12 tablet by ity of tablet 00:00: [...] days. Indication s: acute pain ibuprofen Yes [id number] 800mg Take 1 Univers 800 mg 9-11 tablet by ity of tablet 00:00: mouth [place] 00 every 8 Medical (eight) Branch hours. ibuprofen Yes [id number] 800mg Take 1 Univers 800 mg 9-11 tablet by ity of tablet 00:00: mouth [place] 00 every 8 Medical (eight) Branch hours. ibuprofen Yes [id number] 800mg Take 1 Univers 800 mg 9-11 tablet by ity of tablet 00:00: mouth [place] 00 every 8 Medical (eight) Branch hours. ibuprofen Yes [id number] 800mg Take 1 Univers 800 mg 9-11 tablet by ity of tablet 00:00: mouth [place] 00 every 8 Medical (eight) Branch hours. ibuprofen 2020- No [id number] 800mg Take 1 Univers 800 mg 9-11 09-12 tablet by ity of tablet 00:00: 00:00 mouth [place] 00 :00 every 8 Medical (eight) Branch hours. ibuprofen 2020- No [id number] 800mg Take 1 Univers 800 mg 9-11 09-12 tablet by ity of tablet 00:00: 00:00 mouth [place] 00 :00 every 8 Medical (eight) Branch hours. traMADOL Yes [id number] 50mg Take 1 Un jovon (ULTRAM) 50 5-11 tablet by ity of mg tablet 00:00: mouth [place] 00 every 6 Medical (six) Branch hours as needed for Pain (scale 4-6). maalox/diph Yes [id number] 10mL Take 10 mL Univers enhydrAMINE 5-11 by mouth 4 it y of :lidocaine2 00:00: (four) [place] % viscous 00 times Medical 1:1:1 Susp daily as Branc h suspension needed for Oral mucositis. Rinse and Spit before meals and bedtime. traMADOL Yes [id number] 50mg Take 1 Un jovon (ULTRAM) 50 5-11 tablet by ity of mg tablet 00:00: mouth [place] 00 every 6 Medical (six) Branch hours as needed for Pain (scale 4-6). maalox/diph Yes [id number] 10mL Take 10 mL Univers enhydrAMINE 5-11 by mouth 4 it y of :lidocaine2 00:00: (four) [place] % viscous 00 times Medical 1:1:1 Susp daily as Branc h suspension needed for Oral mucositis. Rinse and Spit before meals and bedtime. traMADOL Yes [id number] 50mg Take 1 Un jovon (ULTRAM) 50 5-11 tablet by ity of mg tablet 00:00: mouth [place] 00 every 6 Medical (six) Branch hours as needed for Pain (scale 4-6). maalox/diph Yes [id number] 10mL Take 10 mL Univers enhydrAMINE 5-11 by mouth 4 it y of :lidocaine2 00:00: (four) [place] % viscous 00 times Medical 1:1:1 Susp daily as Branc h suspension needed for Oral mucositis. Rinse and Spit before meals and bedtime. traMADOL 2019- Yes [id number] 50mg Take 1 Un jovon (ULTRAM) 50 5-11 tablet by ity of mg tablet 00:00: mouth [place] 00 every 6 Medical (six) Branch hours as needed for Pain (scale 4-6). maalox/diph 2019 Yes [id number] 10mL Take 10 mL Univers enhydrAMINE 5-11 by mouth 4 it y of :lidocaine2 00:00: (four) [place] % viscous 00 times Medical 1:1:1 Susp daily as Branc h suspension needed for Oral mucositis. Rinse and Spit before meals and bedtime. traMADOL Yes [id number] 50mg Take 1 Un jovon (ULTRAM) 50 5-11 tablet by ity of mg tablet 00:00: mouth [place] 00 every 6 Medical (six) Branch hours as needed for Pain (scale 4-6). maalox/diph Yes [id number] 10mL Take 10 mL Univers enhydrAMINE 5-11 by mouth 4 it y of :lidocaine2 00:00: (four) [place] % viscous 00 times Medical 1:1:1 Susp daily as Branc h suspension needed for Oral mucositis. Rinse and Spit before meals and bedtime. traMADOL 2020- No [id number] 50mg Take 1 U nivers (ULTRAM) 50 5-11 09-12 tablet by it y of mg tablet 00:00: 00:00 mouth [place] 00 :00 every 6 Medical (six) Branch hours as needed for Pain (scale 4-6). maalox/diph 2020- No [id number] 10mL Take 10 mL Univers enhydrAMINE 5-11 09-12 by mouth 4 i ty of :lidocaine2 00:00: 00:00 (four) [place] as % viscous 00 :00 times Medical 1:1:1 Susp daily as Branc h suspension needed for Oral mucositis. Rinse and Spit before meals and bedtime. traMADOL 2020- No [id number] 50mg Take 1 U nivers (ULTRAM) 50 09-28 tablet by it y of mg tablet 00:00: 00:00 mouth [place] 00 :00 every 6 Medical (six) Branch hours as needed for Pain (scale 4-6). maalox/diph 2020- No [id number] 10mL Take 10 mL Univers enhydrAMINE 09-28 by mouth 4 i ty of :lidocaine2 [...] for Nausea and Vomiting (N/V). ondansetron 2017-05 No 4mg Take 1 Uni vers (ZOFRAN) 4 0-31 -12 tablet by ity of mg tablet 00:00: 00:00 mouth [place] 00 :00 every 8 Medical (eight) Branch hours as needed for Nausea and Vomiting (N/V). ondansetron 2018-1 2021- No 4mg Take 1 Uni vers (ZOFRAN) [...] every 8 Medical (eight) Branch hours. amoxicillin 2017-0 2020- No 500mg Take 1 Un jovon 500 mg 6-21 09-12 capsule by ity of capsule 00:00: 00:00 mouth 3 [place] 00 :00 (three) Medical times Branch daily. ibuprofen 2018-0 2020- No 800mg Take 1 Univ ers 800 mg 11-08 tablet by ity of tablet 00:00: 00:00 mouth [place] 00 :00 every 8 Medical (eight) Branch hours. amoxicillin 2020- No 500mg Take 1 Un jovon 500 mg 11-08 capsule by ity of capsule 00:00: 00:00 mouth 3 [place] 00 :00 (three) Medical times Branch daily. ibuprofen 2020- No 800mg Take 1 Univ ers 800 mg 11-08 tablet by ity of tablet 00:00: 00:00 mouth [place] 00 :00 every 8 Medical (eight) Branch hours. sod Yes 1{bottl Use 1 Univers chlor-bicar [...] 2020- No 1{bottl Use 1 Univers chlor-bicar 12-29 e} Bottle in it y of b-squeez 00:00: 00:00 each [place] bottle 00 :00 nostril 2 Medical (NEILMED (two) Branch SINUS RINSE times COMPLETE) daily. Use pkdv in hot shower 1 hour before bedtime sod 2016-2020- No 1{bottl Use 1 Univers chlor-bicar 12-29 e} Bottle in it y of b-squeez [...] by ity of capsule 00:00: mouth 3 [place] 00 (three) Medical times Branch daily as needed for Cough. benzonatate Yes 100mg Take 1 Uni vers 100 mg 5-03 capsule by ity of capsule 00:00: mouth 3 [place] 00 (three) Medical times Branch daily as needed for Cough. benzonatate Yes 100mg Take 1 Uni vers 100 mg 5-03 capsule by ity of capsule 00:00: mouth 3 [place] 00 (three) Medical times Branch daily as needed for Cough. benzonatate Yes 100mg Take 1 Uni vers 100 mg 5-03 capsule by ity of capsule 00:00: mouth 3 [place] 00 (three) Medical times Branch daily as [...] hours as needed for Pain (scale 4-6). Immunizations Ordered Filled Immunization Date Status Comments [facility] e Immunization Name Name HPV9 2022-03-29 Completed University of 00:00:00 [facility] HPV9 2022-03-29 Completed University of 00:00:00 [facility] HPV9 2022-03-29 Completed University of 00:00:00 [facility] [place] [facility] 2022-03-29 Completed University of 00:00:00 [facility] [place] [facility] 2022-03-29 Completed University of 00:00:00 [facility] HPV9 2022-03-29 Completed University of 00:00:00 [facility] Vital Signs Vital Name Observation Time Observation Value Comments Source Systolic blood 2022-07-02 18:50:00 130 mm[Hg] Univer sity of pressure [facility] Diastolic blood 2022-07-02 18:50:00 89 mm[Hg] Unive rsity of pressure [facility] Heart rate 2022-07-02 18:50:00 78 /min Universi ty of [facility] Respiratory rate 2022-07-02 18:50:00 20 /min Univ ersity of [facility] Oxygen saturation in 2022-07-02 18:50:00 94 /min University Arterial blood by [facility] Pulse oximetry Branch Body temperature 2022-07-02 16:30:00 37 Melida [facility] ersity of [facility] Body height 2022-07-02 15:01:00 162.6 cm [facility] [place] [facility] [place] Body weight 2022-07-02 15:01:00 156.491 kg [facility] [place] [facility] [place] BMI 2022-07-02 15:01:00 59.22 kg/m2 [facility] [place] [facility] [place] Systolic blood 2022-03-29 17:05:00 134 mm[Hg] Univer sity of pressure [facility] Diastolic blood 2022-03-29 17:05:00 84 mm[Hg] Unive rsity of pressure [facility] Heart rate 2022-03-29 17:05:00 79 /min Universi ty of [facility] Body temperature 2022-03-29 17:05:00 36.5 Melida Univ ersity of [facility] Respiratory rate 2022-03-29 17:05:00 17 /min Univ ersity of [place] [facility] [place] Body height 2022-03-29 17:05:00 165.1 cm [facility] [place] [facility] Body weight 2022-03-29 17:05:00 157.937 kg [facility] [place] [facility] BMI 2022-03-29 17:05:00 57.94 kg/m2 Universi ty of [facility] Systolic blood 2022-03-26 20:39:00 138 mm[Hg] Univer sity of pressure [facility] Diastolic blood 2022-03-26 20:39:00 103 mm[Hg] Unive rsity of pressure [place] [facility] Heart rate 2022-03-26 20:39:00 88 /min [facility]i [facility] [place] [facility] Body temperature 2022-03-26 20:39:00 37.11 Melida Univ ersity of [place] [facility] Respiratory rate 2022-03-26 20:39:00 18 /min Univ ersity of [place] [facility] Body height 2022-03-26 20:39:00 162.6 cm [facility] [place] [facility] Body weight 2022-03-26 20:39:00 151.955 kg [facility] [place] [facility] BMI 2022-03-26 20:39:00 57.50 kg/m2 [facility] [place] [facility] Oxygen saturation in 2022-03-26 20:39:00 98 /min University of Arterial blood by [facility] Pulse oximetry Branch Systolic blood 2022-02-05 23:49:01 136 mm[Hg] Univer sity of pressure [place] [facility] Diastolic blood 2022-02-05 23:49:01 99 mm[Hg] Unive rsity of pressure [place] [facility] Heart rate 2022-02-05 23:49:01 77 /min [facility]i ty [facility] [place] [facility] Respiratory rate 2022-02-05 23:49:01 18 /min Univ ersity of [place] [facility] Oxygen saturation in 2022-02-05 23:49:01 99 /min University of Arterial blood by [facility] Pulse oximetry Branch Body temperature 2022-02-05 21:38:00 37.17 Melida Univ ersity of [place] [facility] Body height 2022-02-05 21:38:00 165.1 cm [facility] [place] [facility] Body weight 2022-02-05 21:38:00 154.223 kg [facility] [place] [facility] BMI 2022-02-05 21:38:00 56.58 kg/m2 [facility] [place] [facility] Systolic blood 2021-07-09 08:05:00 142 mm[Hg] Univer sity of pressure [place] [facility] Diastolic blood 2021-07-09 08:05:00 91 mm[Hg] Unive rsity of pressure [place] [facility] Heart rate 2021-07-09 08:05:00 66 /min [facility] [place] [facility] Respiratory rate 2021-07-09 08:05:00 18 /min Univ ersity of [place] [facility] Oxygen saturation in 2021-07-09 08:05:00 97 /min University of Arterial blood by [place] [employer] [facility] yelena Pulse oximetry Branch Body temperature 2021-07-09 06:44:00 36.83 Melida Univ ersity of [place] [facility] Body height 2021-07-09 06:44:00 167.6 cm [facility] [place] [facility] Body weight 2021-07-09 06:44:00 158.759 kg [facility] [place] [facility] BMI 2021-07-09 06:44:00 56.49 kg/m2 [facility] [place] [facility] Systolic blood 2021-06-29 11:00:00 140 mm[Hg] Univer sity of pressure [place] [facility] Diastolic blood 2021-06-29 11:00:00 87 mm[Hg] Unive rsity of pressure [place] [facility] Respiratory rate 2021-06-29 11:00:00 19 /min Univ ersity of [place] [facility] Oxygen saturation in 2021-06-29 11:00:00 98 /min University of Arterial blood by [facility] Pulse oximetry Branch Heart rate 2021-06-29 10:21:00 88 /min [facility] [place] [facility] Body temperature 2021-06-29 10:21:00 36.56 Melida Univ ersity of [place] [facility] Body height 2021-06-29 10:21:00 167.6 cm [facility] [place] [facility] Body weight 2021-06-29 10:21:00 156.491 kg [facility] [place] [facility] BMI 2021-06-29 10:21:00 55.68 kg/m2 [facility] [place] [facility] Systolic blood 2021-01-30 15:01:00 157 mm[Hg] Univer sity of pressure [place] [facility] Diastolic blood 2021-01-30 15:01:00 111 mm[Hg] Unive rsity of pressure [place] [facility] Heart rate 2021-01-30 15:00:00 79 /min [facility] [place] [facility] Body temperature 2021-01-30 15:00:00 36.44 Melida Univ ersity of [place] [facility] Respiratory rate 2021-01-30 15:00:00 20 /min Univ ersity of [place] [facility] Body height 2021-01-30 15:00:00 162.6 cm [facility] [place] [facility] Body weight 2021-01-30 15:00:00 149.687 kg [facility] [place] [facility] BMI 2021-01-30 15:00:00 56.64 kg/m2 [facility] [place] [facility] Oxygen saturation in 2021-01-30 15:00:00 100 /min University of Arterial blood by [facility] Pulse oximetry Branch Systolic blood 2020-11-12 05:00:00 116 mm[Hg] Univer sity of pressure [place] [facility] Diastolic blood 2020-11-12 05:00:00 80 mm[Hg] Unive rsity of pressure [place] [facility] Heart rate 2020-11-12 05:00:00 91 /min [facility]i ty [facility] [place] [facility] Oxygen saturation in 2020-11-12 05:00:00 98 /min University of Arterial blood by [facility] Pulse oximetry Branch Respiratory rate 2020-11-12 04:30:00 16 /min Univ ersity of [place] [facility] Body temperature 2020-11-12 03:30:00 37.5 Melida [facility] ersity of [place] [facility] Body height 2020-11-12 00:54:00 162.6 cm [facility]i ty [facility] [place] [facility] Body weight 2020-11-12 00:54:00 149.687 kg [facility] [place] [facility] BMI 2020-11-12 00:54:00 56.64 kg/m2 [facility] [place] [facility] Systolic blood 2020-01-12 01:00:00 134 mm[Hg] Univer sity of pressure [place] [facility] Diastolic blood 2020-01-12 01:00:00 83 mm[Hg] Unive rsity of pressure [place] [facility] Heart rate 2020-01-12 01:00:00 73 /min [facility]i [facility] [place] [facility] Respiratory rate 2020-01-12 01:00:00 16 /min Univ ersity of [place] [facility] Oxygen saturation in 2020-01-12 01:00:00 98 /min University of Arterial blood by [facility] Pulse oximetry Branch Body temperature 2020-01-11 23:11:00 37.11 Melida Univ ersity of [place] [facility] Body height 2020-01-11 23:11:00 165.1 cm [facility] [place] [facility] Body weight 2020-01-11 23:11:00 137.44 kg [facility] BMI 2020-01-11 23:11:00 50.42 kg/m2 [facility] Systolic blood 2019-01-29 17:00:00 125 mm[Hg] Univer sity of pressure [facility] Diastolic blood 2019-01-29 17:00:00 95 mm[Hg] Unive rsity of [facility] Heart rate 2019-01-29 17:00:00 64 /min [facility] Respiratory rate 2019-01-29 17:00:00 18 /min [facility] Oxygen saturation in 2019-01-29 17:00:00 100 /min [facility] Arterial blood by [facility] Pulse oximetry [place] Body temperature 2019-01-29 15:07:00 36.61 Melida [facility] Body height 2019-01-29 15:07:00 162.6 cm [facility] Body weight 2019-01-29 15:07:00 145.151 kg [facility] BMI 2019-01-29 15:07:00 54.93 kg/m2 [facility] Procedures Procedure Date / Time Performing Clinician Source Performed CT SOFT TISSUE NECK W 2022-07-02 16:26:40 [facility] COMP. METABOLIC PANEL 2022-07-02 15:26:00 [facility] [place] [id number] CBC WITH DIFF 2022-07-02 15:26:00 Andrew Tellez [facility] RAPID STREP SCREEN FOR 2022-07-02 15:26:00 Andrew Tellez U [facility] GROUP A Medical Branch COVID-19 (ID NOW RAPID 2022-07-02 15:26:00 Andrew Tellez U [facility] TESTING) Medical Branch CONSENT/REFUSAL FOR 2022-07-02 14:52:14 Doctor Unassigned, No [facility] DI[facility]NOSIS [facility] TREATMENT Name Medical Branch POCT URINALYSIS W/O 2022-03-29 18:17:00 Mariposa Lozoya [facility] SPECIFIC GRAVITY [facility] CHOLESTEROL 2022-03-29 18:16:00 Mariposa Lozoya [facility] THYROID STIMULATING 2022-03-29 18:16:00 Mairposa Lozoya [facility] HORMONE [facility] CBC WITH DIFF 2022-03-29 18:16:00 Mariposa Lozoya [facility] GLYCOSYLATED HEMOGLOBIN 2022-03-29 18:16:00 Mariposa Lozoya [facility] (A1C) [facility] HCV ANTIBODY 2022-03-29 18:16:00 Mariposa Lozoya [facility] URINE CULTURE 2022-03-29 18:16:00 Mariposa Lozoya [facility] GC & CHLAMYDIA 2022-03-29 18:16:00 Mariposa [facility]oya [facility] AMPLIFIED ASSAY [facility] HIV 1/2 AG-AB WITH 2022-03-29 18:16:00 Mariposa Lozoya [facility] REFLEX [facility] HIGH RISK HPV-THIN PREP 2022-03-29 18:16:00 Mariposa Lozoya [facility] TRICHOMONAS AMPLIFIED 2022-03-29 18:16:00 Mariposa Lozoya [facility] ASSAY [facility] PAP SMEAR-LIQUID 2022-03-29 18:16:00 Mariposa Lozoya [facility] BASED-CP [facility] GALV ONLY - SYPHILIS 2022-03-29 18:16:00 Mariposa Lozoya [facility] IGG/IGM [facility] GARDASIL 9 (HPV 9V) 2022-03-29 18:04:59 Mariposa Lozoya [facility] VACCINE [facility] POCT TEST 2022-03-29 17:44:00 Mariposa Lozoya [facility] CONSENT/REFUSAL FOR 2022-03-26 20:31:12 Doctor Unassigned, No Un [facility] DIAGNOSIS AND TREATMENT Name Medical Branch EKG-12 LEAD 2022-02-05 23:53:39 [facility] 2022-02-05 22:26:00 Juliana Rizo [facility] URINALYSIS 2022-02-05 22:15:00 [facility] TROPONIN I 2022-02-05 22:04:00 [facility]. METABOLIC PANEL 2022-02-05 22:04:00 Juliana Rizo [facility] ([id number]) Medical Branch CBC WITH DIFF 2022-02-05 22:04:00 Juliana Rizo [facility] POCT GLUCOSE 2022-02-05 21:39:00 Juliana Rizo [facility] (AUTOMATED) Medical Branch POCT GLUCOSE 2022-02-05 21:37:00 [facility] CONSENT/REFUSAL FOR 2022-02-05 21:24:22 Doctor Unassigned, No Un [facility] [place] DIAGNOSIS AND TREATMENT Name [facility] RAPID STREP SCREEN FOR 2021-07-09 06:52:00 Juliana Rizo [facility] GROUP A Medical Branch CONSENT/REFUSAL FOR 2021-07-09 06:38:59 Doctor Unassigned, No Un [facility] [place] DIAGNOSIS AND TREATMENT Name Medical Branch CONSENT/REFUSAL FOR 2021-06-29 10:08:48 Doctor Unassigned, No Un [facility] [place] DIAGNOSIS AND TREATMENT Name Medical Branch CONSENT/REFUSAL FOR 2021-01-30 14:50:30 Doctor Unassigned, No Un [facility] [place] DIAGNOSIS AND TREATMENT Name Medical Branch CT ABDOMEN PELVIS W 2020-11-12 04:03:37 Arturo Lozano [facility] CONTRAST [facility] POCT TEST 2020-11-12 01:15:00 Arturo Lozano [facility] Medical Branch LIPASE 2020-11-12 01:04:00 Arturo Lozano [facility] COMP. METABOLIC PANEL 2020-11-12 01:04:00 Arturo Lozano [facility] ([id number]) Medical Branch CBC WITH DIFF 2020-11-12 01:04:00 Arturo Lozano [facility] URINALYSIS 2020-11-12 01:04:00 Arturo Lozano [facility] COVID-19 (ID NOW RAPID 2020-11-12 01:04:00 Arturo Lozano [facility] TESTING) Medical Branch NOTICE OF PRIVACY 2020-11-12 00:46:49 Doctor Unassigned, No [facility] Medical Branch CONSENT/REFUSAL FOR 2020-11-12 00:46:22 Doctor Unassigned, No Un [facility] [place] DIAGNOSIS AND TREATMENT Name Medical Branch CT ABDOMEN PELVIS WO 2020-01-12 01:38:03 Arjun Clarke [facility] LIPASE 2020-01-12 00:41:00 Arjun Clarke [facility] COMP. METABOLIC PANEL 2020-01-12 00:41:00 Arjun Clarke [facility] ([id number]) [facility] CBC WITH DIFF 2020-01-12 00:41:00 Arjun Clarke [facility] URINALYSIS 2020-01-12 00:28:00 Arjun Clarke [facility] POCT TEST 2020-01-12 00:28:00 Arjun Clarke [facility] NOTICE OF PRIVACY 2020-01-11 23:05:20 Doctor Unassigned, No [facility] CONSENT/REFUSAL FOR 2020-01-11 23:05:03 Doctor Unassigned, No Un [facility] [place] DIAGNOSIS AND TREATMENT Name [facility] XR CHEST 1 VW 2019-01-29 16:47:59 Cesar Fabiano Alma o [facility] NOTICE OF PRIVACY 2019-01-29 14:53:45 Doctor Unassigned, No [facility] CONSENT/REFUSAL FOR 2019-01-29 14:53:28 Doctor Unassigned, No Un [facility] [place] DIAGNOSIS AND TREATMENT [facility] Encounters Start End Encounter Admission Attending Care Care Encounter Source Date/Time Date/Time Type Type Clinicians Facility Department ID 2022-07-02 2022-07-02 Emergency X EBONY [facility] ERT [id number] Univers 09:04:00 12:57:00 ANDREW [facility] 2022-07-02 2022-07-02 Emergency Ebony [facility] [id number] Univers 09:04:00 12:57:00 Andrew RADER [id number] itdeana [facility] [id number] [facility] [phone] [facility] 084 [place] 2022-07-02 2022-07-02 Orders Doctor MARK [id number] Univers 00:00:00 00:00:00 Only Unassigned, CHANDRAKANT [id number] ity of [place] [facility] [id number] Raul as [phone] [facility] 009 [place] 2022-06-27 2022-06-27 Outpatient Karrie BAUER [facility] [id number] Univers 08:30:00 08:30:00 CLAUDIA sewell [facility] 2022-06-08 2022-06-08 Letter Darell [facility] [id number] Univers 00:00:00 00:00:00 (Out) Mariposa PORTER USED [employer] [id number] it y of REGIONAL [id number] Raul as MATERNAL [phone] Med ical & CHILD [address] [place] [address] 2022-06-08 2022-06-08 Telephone Darell ORADRIANNA 1.2.840.114 [id number] Univers 00:00:00 00:00:00 Mariposa PORTER USED [employer] [id number] it y of REGIONAL [id number] Raul as MATERNAL [id number] [facility] ical & CHILD [address] [place] [address] 2022-05-29 2022-05-29 Outpatient Karrie BAUER [facility] [id number] Univers 11:00:00 11:00:00 CLAUDIA sewell [facility] 2022-03-29 2022-03-29 Outpatient MARIPOSA WHITMORE [facility] [id number] Univers 10:45:00 12:19:01 MARIPOSA LOZOYA [facility] 2022-03-29 2022-03-29 Office DarellELKLAND, UTADRIANNA [id number] Univers 10:45:00 12:19:01 Visit Mariposa PORTER USED [employer] [id number] it y of REGIONAL [id number] Raul as MATERNAL [phone] [facility] ical & CHILD [address] [place] [address] 2022-03-29 2022-03-29 [facility] [id number] Univers 00:00:00 00:00:00 (Out) Mariposa PORTER USED [employer] [id number] it y [facility] [id number] [place] [address] MATERNAL [phone] [facility] & CHILD [address] [place] [address] 2022-03-26 2022-03-26 Emergency [facility] [id number] Univers 14:43:00 15:39:00 JESSICA rivera [facility] 2022-03-26 2022-03-26 Emergency [facility] 1.2.840.114 [id number] Univers 14:43:00 15:39:00 Jessica RADER [id number] ity [facility] [id number] [place] [phone] 2022-02-05 2022-02-05 Emergency X RIZO, [facility] ERT [id number] Univers 16:40:00 18:57:00 JULIANA rivera [facility] 2022-02-05 2022-02-05 Emergency Rizo, [facility] [id number] Univers 16:40:00 18:57:00 Juliana RADER [id number] i ty of [place] 4.2.7.2.[address] [place] [id number] 2021-07-09 2021-07-09 Emergency X RIZO, [facility] ERT [id number] Univers 00:46:00 02:08:00 JULIANA rivera [facility] 2021-07-09 2021-07-09 Emergency Rizo, [facility] [id number] Univers 00:46:00 02:08:00 Juliana RADER [id number] i ty of [place] 4.2.7.2.[address] [place] [phone] 2021-07-09 2021-07-09 Orders Doctor FLORES 1.2.840.114 [id number] Univers 00:00:00 00:00:00 Only Unassigned, CHANDRAKANT [id number] ity of [facility] [id number] Raul as [id number] [facility] 009 Branch 2021-06-29 2021-06-29 Emergency X [facility] ERT [id number] Univers 04:19:00 05:48:00 ARTURO ity of [facility] 2021-06-29 2021-06-29 Emergency [facility] [id number] Univers 04:19:00 05:48:00 Arturo RADER [id number] ity of [place] [id number] [facility] [id number] [place] [address] Branch 2021-01-30 2021-01-30 Emergency [facility] 1.2.840.114 [id number] Univers 10:02:00 10:39:00 Jessica Rader [id number] ity of [place] [id number] [facility] [phone] [place] [address] Branch 2021-01-30 2021-01-30 Emergency X [facility] ERT [id number] Univers 09:50:00 09:50:00 ity of [facility] 2020-11-11 2020-11-12 Emergency [facility] [id number] Univers 20:40:00 00:29:00 Arturo Rader [id number] ity of [place] [id number] [facility] [id number] [place] [address] Branch 2020-11-11 2020-11-11 Emergency X [facility] ERT [id number] Univers 19:46:00 19:46:00 ity of [facility] 2020-11-11 2020-11-11 Letter MARK Fields [id number] Univers 00:00:00 00:00:00 (Out) Calixto CHANDRAKANT [id number] it y of [facility] [id number] Raul as [id number] [facility] 019 Branch 2020-01-11 2020-01-11 Emergency [facility] 1.2.840.114 [id number] Univers 18:17:00 21:25:00 Arjun Rader [id number] i ty of [place] [id number] [facility] [phone] [address] 2020-01-11 2020-01-11 Emergency X TRICIA, [facility] ERT [id number] Univers 18:17:00 18:17:00 ARJUN ity of [facility] 2019-01-29 2019-01-29 Emergency Guerrero, [facility] [id number] Univers 09:57:26 12:45:00 Fabiano Latanya [id number] i ty of [place] [id number] [facility] [id number] [address] 2019-01-29 2019-01-29 Orders Doctor MARK [id number] Univers 00:00:00 00:00:00 Only Unassigned, CHANDRAKANT [id number] ity of [place] [facility] [id number] Raul [id number] [address] Results Test Description Test Time Test Comments Results Result Comments Source POCT URINALYSIS W/O SPECIFIC GRAVITY 2022-03-29 18:18:00 Test Item Value Reference Range Interpretation Comme nts POCT PH U (test code = 3254) 7 mg/dl 5-8 POCT U LEUK EST (test code = 3263) n Negative - Negative POCT U NIT (test code = 3262) n Negative - Negative POCT U PROT (test code = 3259) n Negative - Negative POCT U GLU (test code = 3256) n Negative - Negative POCT U KETONE (test code = 3258) n Negative - Negative POCT U BLD (test code = 3257) n Negative - Negative Lab Interpretation (test code = 97906-8) [facility]O SPECIFIC [id number] 18:18:00 Test Item Value Reference Range Interpretation Comments POCT PH U (test code = 3254) 7 mg/dl 5-8 POCT U [place]UK EST (test code = n Negative - Negative 3263) POCT U NIT (test code = 3262) n Negative - Negative POCT U PROT (test code = 3259) n Negative - Negative POCT U GLU (test code = 3256) n Negative - Negative POCT U KETONE (test code = 3258) n Negative - Negative POCT U BLD (test code = 3257) n Negative - Negative Lab Interpretation (test code = Normal 66282-3) [place] [id number] 17:44[facility]00 Test Item Value Reference Range Interpretation Comments POCT PREG (test code = 1605) Negative On board controls acceptable with C Yes Line (test code = 3574) POCT PREG LOT # (test code = 3575) POCT PREG TEST DATE (test code = 3576) [facility] [id number] 17:44:00 Test Item Value Reference Range Interpretation Comments POCT PREG (test code = 1605) Negative On board controls acceptable with C Yes Line (test code = 3574) POCT PREG LOT # (test code = 3575) POCT PREG TEST DATE (test code = 3576) [facility] [id number] 22:39:54 Test Item Value Reference Interpretation Comments Range TROPONIN I (test 0.003 ng/mL See_Comment [Automated code = 9518388004) message] The system which generated this result transmitted reference range : <=0.034. The reference range was not used to interpret this result as normal/abnormal . ELTON (test code = Reference (Normal) ELTON) Range (defined by the 99th percentile reference [...] biotin. Lab Interpretation Normal (test code = 81947-7) [facility]. METABOLIC PANEL ([id number])2022-02-05 22:29:51 Test Item Value Reference Range Interpretation Comments NA (test code = 141 mmol/L 135-145 2784137863) K (test code = 4.1 mmol/L 3.5-5 8907155153) CL (test code = 107 mmol/L 98-108 0563355588) CO2 TOTAL (test code 28 mmol/L 23-31 = 6993121476) AGAP (test code = 2-16 7125787021) BUN (test code = 13 mg/dL 7-23 4866708366) GLUCOSE (test code = 90 mg/dL 70-110 1872912692) CREATININE (test code 0.61 mg/dL 0.5-1.04 = 0578200790) TOTAL BILI (test code 0.2 mg/dL 0.1-1.1 = 7888812371) CALCIUM (test code = 9.0 mg/dL 8.6-10.6 7555233787) T PROTEIN (test code 7.0 g/dL 6.3-8.2 = 2686915305) ALBUMIN (test code = 4.1 g/dL 3.5-5 7606049922) ALK PHOS (test code = 77 U/L 34-122 6293000612) ALTv (test code = 21 U/L 5-35 1742-6) AST(SGOT) (test code 18 U/L 13-40 = 4012661437) eGFR (test code = mL/min/1.73m2 3095668789) ELTON (test code = ELTON) Association of [...] or urine or abnormalities in imaging tests). [facility] [id number] 22:26:00 Test Item Value Reference Range Interpretation Comments POCT PREG (test code = 1605) negative On board controls acceptable with present C Line (test code = 3574) POCT PREG LOT # (test code = 3575) [id number] POCT PREG TEST DATE (test 04/19/2023 code = 3576) Lab Interpretation (test code = Normal 18519-6) [facility] WITH [id number] 22:16:31 Test Item Value Reference Range Interpretation Comments WBC (test code = See_Comment [Automated 8536-2) message] The sy stem which generated this result transmitted reference range : 4.30 - 11.10 10*3/?L. The reference range was not used to interpret this result as normal/abnormal . RBC (test code = See_Comment [Automated 308-8) message] The sy stem which generated this [...] RDW-SD (test code = 46.5 fL 39-49.9 15170-8) RDW-CV (test code = 15.4 % 12-15.5 788-0) PLT (test code = See_Comment H [Automated 777-3) message] The sy stem which generated this result transmitted reference range : 166 - 358 10*3/ ?L. The reference r manjit was not used to interpret this result as normal/abnormal . MPV (test code = 11.2 fL 9.5-12.9 95385-0) NRBC/100 WBC (test See_Comment [Automat ed code = 4208557010) message] The system which generated this result transmitted reference range : 0.0 - 10.0 /100 WBCs. The refer ence range was not u sed to interpret th is result as normal/abnormal . NRBC x10^3 (test code See_Comment [Auto mated = 0977345157) message] The s ystem which generated this result transmitted reference range : 10*3/?L. The reference range was not used to interpret this result as normal/abnormal . GRAN MAT (NEUT) % 61.2 % (test code = 770-8) IMM GRAN % (test code 0.30 % = 7778047602) LYMPH % (test code = 28.0 % 736-9) MONO % (test code = 7.4 % 5905-5) EOS % (test code = 2.1 % 713-8) BASO % (test code = 1.0 % 706-2) GRAN MAT x10^3(ANC) 4.40 10*3/uL 1.88-7.09 (test code = 1838539458) IMM GRAN x10^3 (test 0-0.06 code = 5951133333) LYMPH x10^3 (test code 2.01 10*3/uL 1.32-3.29 = 731-0) MONO x10^3 (test code 0.53 10*3/uL 0.33-0.92 = 742-7) EOS x10^3 (test code = 0.15 10*3/uL 0.03-0.39 711-2) BASO x10^3 (test code 0.07 10*3/uL 0.01-0.07 = 704-7) Lab Interpretation Abnormal (test code = 87693-9) [facility] GLUCOSE (AUTOMATED)2022-02-05 21:43:51 Test Item Value Reference Range Interpretation Comments POCT GLU (test code = 4449260917) 83 mg/dL 70-110 Lab Interpretation (test code = Normal 02877-8) [facility] GLUCOSE (AUTOMATED)2022-02-05 21:43:50 Test Item Value Reference Range Interpretation Comments POCT GLU (test code = 8973618894) 85 mg/dL 70-110 Lab Interpretation (test code = Normal 52295-8) [facility] 01:41:16 Test Item Value Reference Range Interpretation Comments APPEARANCE (test code = Hazy Clear A 8080633639) COLOR (test code = Yellow Yellow 6144697308) PH (test code = 4.8-8.0 8299222419) SP GRAVITY (test code = 1.003-1.030 9277439818) GLU U QUAL (test code = Normal Normal 5592273163) BLOOD (test code = Negative Negative 7690279562) KETONES (test code = Negative Negative 3052136977) PROTEIN (test code = Negative Negative 2887-8) UROBILIN (test code = Normal Normal 0029128027) BILIRUBIN (test code = Negative Negative 7121643762) NITRITE (test code = Negative Negative 3351464641) LEUK VINCENZO (test code = Negative Negative 4251770427) RBC/HPF (test code = See_Comment H [Autom ated message] 9848287791) The system [employer] generated this result transmitted ref erence range: 0 - 3 HP F. The reference range was not used to int erpret this result as normal/abnormal . WBC/HPF (test code = See_Comment [Autom ated message] 1529756981) The system [employer] generated this result transmitted ref erence range: 0 - 5 HP F. The reference range was not used to int erpret this result as normal/abnormal . BACTERIA (test code = Few Negative A 5419486946) MUCOUS (test code = Marked Negative LPF A 6353562478) SQ EPITH (test code = HPF 9020011487) HYAL CAST (test code = See_Comment [Aut omated message] 8360904544) The system Druva generated this result transmitted ref erence range: <=2 LPF. The reference range was not used to int erpret this result as normal/abnormal . Lab Interpretation (test Abnormal code = 84382-7) [facility] NOW RAPID TESTING)2020-11-12 01:40:36 Test Item Value Reference Range Interpretation Comments SARS-CoV-2 Rapid ID NOW Not Detected Not Detected (test code = 21472-2) ELTON (test code = ELTON) ID NOW COVID-19 Assay is an isothermal nucleic acid amplification test intended for the qualitative detection of nucleic acid from SARS-CoV-2 viral RNA in nasopharyngeal (DOOR FITTER) specimens. It is used under Emergency Use [...] indicated. Lab Interpretation Normal (test code = 70863-2) [facility] Metabolic [id number] 01:36:58 Test Item Value Reference Range Interpretation Comments NA (test code = 138 mmol/L 135-145 4432661631) K (test code = 4.0 mmol/L 3.5-5.0 2076829407) CL (test code = 104 mmol/L 98-108 9157274575) CO2 TOTAL (test code = 25 mmol/L 23-31 5310197087) AGAP (test code = 2-16 3921155698) BUN (test code = 14 mg/dL 7-23 5739968614) GLUCOSE (test code = 107 mg/dL 70-110 3634417526) CREATININE (test code = 0.66 mg/dL 0.50-1.04 9090331866) TOTAL BILI (test code = 0.5 mg/dL 0.1-1.9 0631705709) CALCIUM (test code = 9.7 mg/dL 8.6-10.6 1814699438) T PROTEIN (test code = 8.5 g/dL 6.3-8.2 H 2851235755) ALBUMIN (test code = 4.4 g/dL 3.5-5.0 6934966177) ALK PHOS (test code = 68 U/L 34-122 1861024737) ALTv (test code = 24 U/L 5-35 1742-6) AST(SGOT) (test code = 20 U/L 13-40 1225506446) eGFR (test code = mL/min/1.73m2 2152639756) ELTON (test code = ELTON) Association of [...] tests). Lab Interpretation Abnormal (test code = 94572-7) [facility], [id number] 01:36:58 Test Item Value Reference Range Interpretation Comments LIPASE (test code = 5880523135) 68 U/L 0-220 Lab Interpretation (test code = Normal 60189-6) [facility] with [id number] 01:24:35 Test Item Value Reference Range Interpretation [...] RDW-SD (test code = 44.0 fL 39.0-49.9 65200-2) RDW-CV (test code = 14.6 % 12.0-15.5 788-0) PLT (test code = See_Comment H [Automated 777-3) message] The sy stem which generated this result transmitted reference range : 166 - 358 10*3/ ?L. The reference r manjit was not used to interpret this result as normal/abnormal . MPV (test code = 11.2 fL 9.5-12.9 10873-6) NRBC/100 WBC (test See_Comment [Automat ed code = 8027078267) message] The system which generated this result transmitted reference range : 0.0 - 10.0 /100 WBCs. The refer ence range was not u sed to interpret th is result as normal/abnormal . NRBC x10^3 (test code <0.01 See_Comment [Auto mated = 2944749789) message] The s ystem which generated this result transmitted reference range : 10*3/?L. The reference range was not used to interpret this result as normal/abnormal . GRAN MAT (NEUT) % 83.7 % (test code = 770-8) IMM GRAN % (test code 0.40 % = 7432587304) LYMPH % (test code = 10.5 % 736-9) MONO % (test code = 4.4 % 5905-5) EOS % (test code = 0.3 % 713-8) BASO % (test code = 0.7 % 706-2) GRAN MAT x10^3(ANC) 7.63 10*3/uL 1.88-7.09 H (test code = 0305210678) IMM GRAN x10^3 (test 0.04 10*3/uL 0.00-0.06 code = 6944587380) LYMPH x10^3 (test code 0.96 10*3/uL 1.32-3.29 L = 731-0) MONO x10^3 (test code 0.40 10*3/uL 0.33-0.92 = 742-7) EOS x10^3 (test code = 0.03 10*3/uL 0.03-0.39 711-2) BASO x10^3 (test code 0.06 10*3/uL 0.01-0.07 = 704-7) Lab Interpretation Abnormal (test code = 07405-2) [facility] [id number] 01:15:00 Test Item Value Reference Range Interpretation Comments POCT PREG (test code = 1605) negative On board controls acceptable with yes C Line (test code = 3574) POCT PREG LOT # (test code = 3575) [id number] POCT PREG TEST DATE (test 05/20/2022 code = 3576) Lab Interpretation (test code = Normal 38123-6) [facility] ABDOMEN PELVIS WO [id number] 02:01:56 No acute abdominal or pelvic abnormality. [...] asymptomatic butsometimes associated with flank pain and/or hematuria.[facility] BranchUrinalysis 2020-01-12 01:27:00 Test Item Value Reference Range Interpretation Comments APPEARANCE (test code = Clear Clear 7667245618) COLOR (test code = Yellow Yellow 8251568024) PH (test code = 4.8-8.0 5822958475) SP GRAVITY (test code = 1.003-1.030 0442844487) GLU U QUAL (test code = Normal Normal 7400489392) BLOOD (test code = Negative Negative INTERFERE NCE FROM 6150246995) ASCORBIC ACID M AY CAUSE FALSE NEG ATIVE RESULT KETONES (test code = Negative Negative 7558484115) PROTEIN (test code = Negative Negative 2887-8) UROBILIN (test code = Normal Normal 3317071385) BILIRUBIN (test code = Negative Negative 4916173940) NITRITE (test code = Negative Negative 0363180754) LEUK VINCEZNO (test code = Negative Negative 6055634980) RBC/HPF (test code = See_Comment [Autom ated message] 4745619389) The system [employer]va generated this result transmitted ref erence range: 0 - 3 HP F. The reference range was not used to int erpret this result as normal/abnormal . WBC/HPF (test code = <1 See_Comment [Autom ated message] 1680256839) The system [employer]va generated this result transmitted ref erence range: 0 - 5 HP F. The reference range was not used to int erpret this result as normal/abnormal . BACTERIA (test code = Few Negative A 0480291397) MUCOUS (test code = Slight Negative LPF A 6308349028) SQ EPITH (test code = HPF 0070303746) HYAL CAST (test code = See_Comment [Aut omated message] 1244834249) The system Druva generated this result transmitted ref erence range: <=2 LPF. The reference range was not used to int erpret this result as normal/abnormal . Lab Interpretation (test Abnormal code = 15941-6) [facility]. METABOLIC PANEL (14270)2020-01-12 01:12:00 Test Item Value Reference Range Interpretation Comments NA (test code = 138 mmol/L 135-145 7085892594) K (test code = 4.4 mmol/L 3.5-5 1888147405) CL (test code = 107 mmol/L 98-108 2572481696) CO2 TOTAL (test code = 23 mmol/L 23-31 0848055154) AGAP (test code = 2-16 5749415631) BUN (test code = 12 mg/dL 7-23 4713844581) GLUCOSE (test code = 106 mg/dL 70-110 3299959410) CREATININE (test code 0.57 mg/dL 0.5-1.04 = 4086002885) TOTAL BILI (test code 0.2 mg/dL 0.1-1.1 = 4782911345) CALCIUM (test code = 8.9 mg/dL 8.6-10.6 7560140195) T PROTEIN (test code = 7.3 g/dL 6.3-8.2 1797891501) ALBUMIN (test code = 4.0 g/dL 3.5-5 6120296568) ALK PHOS (test code = 60 U/L 34-122 4758198047) ALTv (test code = 22 U/L 5-35 1742-6) AST(SGOT) (test code = 26 U/L 13-40 8820288767) eGFR Calculation mL/min/1.73m2 (Non-) (test code = 0409637506) eGFR Calculation mL/min/1.73m2 () (test code = 1641811395) ELTON (test code = ELTON) Association of [...] or urine or abnormalities in imaging tests). [facility] [id number] 01:12:00 Test Item Value Reference Range Interpretation Comments LIPASE (test code = 7150455433) 149 U/L 0-220 Lab Interpretation (test code = Normal 33326-5) [facility] with [id number] 01:02:00 Test Item Value Reference Range Interpretation Comments WBC (test code = See_Comment L [Automated 8590-2) message] The sy stem which generated this result transmitted reference range : 4.30 - 11.10 10*3/?L. The reference range was not used to interpret this result as normal/abnormal . RBC (test code = See_Comment [Automated 139-8) message] The sy stem which generated this [...] RDW-SD (test code = 47.7 fL 39-49.9 19112-1) RDW-CV (test code = 15.4 % 12-15.5 788-0) PLT (test code = See_Comment [Automated 777-3) message] The sy stem which generated this result transmitted reference range : 166 - 358 10*3/ ?L. The reference r manjit was not used to interpret this result as normal/abnormal . MPV (test code = 11.9 fL 9.5-12.9 79744-9) NRBC/100 WBC (test See_Comment [Automat ed code = 2679577813) message] The system which generated this result transmitted reference range : 0.0 - 10.0 /100 WBCs. The refer ence range was not u sed to interpret th is result as normal/abnormal . NRBC x10^3 (test code <0.01 See_Comment [Auto mated = 6975935071) message] The s ystem which generated this result transmitted reference range : 10*3/?L. The reference range was not used to interpret this result as normal/abnormal . GRAN MAT (NEUT) % 56.3 % (test code = 770-8) IMM GRAN % (test code 0.30 % = 0675720673) LYMPH % (test code = 34.1 % 736-9) MONO % (test code = 6.7 % 5905-5) EOS % (test code = 2.0 % 713-8) BASO % (test code = 0.6 % 706-2) GRAN MAT x10^3(ANC) 1.93 10*3/uL 1.88-7.09 (test code = 9260732116) IMM GRAN x10^3 (test <0.03 0-0.06 code = 1267200001) LYMPH x10^3 (test code 1.17 10*3/uL 1.32-3.29 L = 731-0) MONO x10^3 (test code 0.23 10*3/uL 0.33-0.92 L = 742-7) EOS x10^3 (test code = 0.07 10*3/uL 0.03-0.39 711-2) BASO x10^3 (test code <0.03 0.01-0.07 = 704-7) Lab Interpretation Abnormal (test code = 79361-4) [facility] [id number] 00:28:00 Test Item Value Reference Range Interpretation Comments POCT PREG (test code = 1605) negative On board controls acceptable with present C Line (test code = 3574) POCT PREG LOT # (test code = 3575) [id number] POCT PREG TEST DATE (test 12-18-2020 code = 3576) Lab Interpretation (test code = Normal 16574-0) [facility] 1 [id number] 16:52:13HISTORY: Chest pain. TECHNIQUE: Portable AP erect view of the chest is obtained. No prior cheststudyavailable for comparison. FINDINGS: No acute pneumonia. No pneumothorax or pleural effusion orpulmonary congestion detected. Cardiac size is mildly enlarged. CONCLUSIONS: Mild cardiomegaly suspected. [place], Radiant Results Inft User - 01/29/2019 11:52 AM CDTHISTORY: Chest pain.TECHNIQUE: Portable AP erect view of the chest is obtained. No prior cheststudy available for comparison.FINDINGS: No acute pneumonia. No pneumothorax or pleural effusion orpulmonary congestion detected. Cardiac size is mildly enlarged.CONCLUSIONS: Mild cardiomegaly suspected.[facility]"
[2022-07-05] MEDS ORDERED: DIPHENHYDRAMINE 50 MG/ML VIAL ONE (08:35)
[2022-07-05] MEDS ORDERED: FAMOTIDINE 20 MG/2 ML VIAL IV ONE (08:36)
[2022-07-05] MEDS ORDERED: NA CHLORIDE 0.9% 1,000 ML ONE ×2 (08:36→10:32)
[2022-07-05] MEDS ORDERED: LORazepam 2 MG/ML VIAL ONE (08:36)
[2022-07-05] MEDS ORDERED: IPRATROPIUM BROM 0.5MG/2.5ML ONE (08:42)
[2022-07-05] MEDS ORDERED: ALBUTEROL 2.5 MG/3 ML NEB SOL ONE (08:42)
[2022-07-05 08:46] LABS: MCV 78.6 fL (80-100); RBC Red Blood Cell Count 4.96 M/uL (3.86-4.86)
[2022-07-05 09:03] LABS: Albumin 3.7 g/dL (3.4-5.0); Bilirubin Total 0.2 mg/dL (0.2-1.0); Magnesium 2.1 mg/dL (1.6-2.4); Potassium 3.5 mmol/L (3.5-5.1); Protein, Total 8.3 g/dL (6.4-8.2)
[2022-07-05 09:32] LABS: Urine Blood Negative (Negative); Urine Glucose Negative (Negative); Urine Protein Negative (Negative); Urine Specific Gravity >=1.030 (1.005-1.030); Urine pH 7.5 (5.0-7.0)
[2022-07-05 09:44] LABS: Protime INR 1.09
--- NOTE | 2022-07-05 10:09 | RAD REPORT ---
EXAM DESCRIPTION: CT - Soft Tissue Neck W/Contr CLINICAL HISTORY: SWELLING Breathing difficulty since yesterday. COMPARISON: SOFT TISSUE NECK W CONTRAST dated 04/30/2010 TE[address] Thin cut axial CT images of the neck were obtained following intravenous administration of 100 mL Isovue 370. Multiplanar reformats were generated and reviewed. All CT scans are performed using dose optimization technique as appropriate and may include automated exposure control or mA/KV adjustment according to patient size. FINDINGS: No suspicious mucosal mass or inflammatory changes in the nasopharyngeal or oropharyngeal spaces. Carious changes with periapical collections along the roots of the right mandibular molars and second premolar, with osseous remodeling and cortical thickening along the right posterior mandibular body buccal cortex. No overlying subperiosteal abscess or inflammatory changes. Parapharyngeal fat spaces are preserved. Tongue base structures are normal. Epiglottis and aryepiglottic folds are normal. Piriform sinuses are well aerated. The vocal cords are symmetric in appearance. Salivary glands are normal in appearance. Thyroid gland is unremarkable. No cervical adenopathy. Major vascular structures are within normal limits. Upper lung hoff are clear. Included intracranial contents are unremarkable. IMPRESSION: No suspicious masses, adenopathy, or inflammatory changes in the neck. Carious changes with suggestion of periapical abscesses of unknown chronicity along the roots of the right mandibular molars and second premolar. Please correlate with dental exam.
[2022-07-05 10:18] LABS: Urine Specific Gravity/Preg >1.030 (1.005-1.030)
[2022-07-05 10:18] LABS: SARS-COV-2 RT PCR NEGATIVE (NEGATIVE)
--- NOTE | 2022-07-05 12:20 | RAD REPORT ---
EXAM DESCRIPTION: Shawn Single View07/05/2022 12:08 pm CLINICAL HISTORY: Chest pain COMPARISON: 2021 FINDINGS: The lungs appear clear of acute infiltrate. The heart is normal size IMPRESSION: No acute abnormalities displayed
[2022-07-05] MEDS ORDERED: METHYLPREDNISOLONE 125 MG INJ ONE (13:34)
--- NOTE | 2022-07-05 14:01 | EDPHYS ---
Physician Documentation [facility] Name: Vivek Chino Age: 37 yrs Sex: Female : 1985 Arrival Date: 07/05/2022 Time: 08:24 Bed 4 Private MD: ED Physician Varinder Eagle HPI: 07/05 08:32 This 37 yrs old Female presents to ER via Wheelchair with complaints of Breathing sb4 Difficulty. 08:32 Patient reports that she was seen at [facility] on Sunday and diagnosed with strep sb4 throat. She had a full work up- CBC, CMP, CT neck. She reports she received antibiotics and steroids while she was there and was discharged with cefpodoxime and prednisone. She comes into the ED today with labored breathing and believes it is a reaction to the prednisone. She denies any chronic medical problems or daily medications.. Historical: - Allergies: 08:30 Clindamycin; ss 09:11 Levaquin; kc6 - PMHx: 10:07 None; kc6 - PSHx: 08:30 Adenoid excision; section; ss - Immunization history:: Adult Immunizations unknown. - Social history:: Smoking status: Patient denies any tobacco usage or history of. ROS: 08:50 Constitutional: Negative for fever, chills, and weight loss, Eyes: Negative for injury, sb4 pain, redness, and discharge, Cardiovascular: Negative for chest pain, palpitations, and edema, Abdomen/GI: Negative for abdominal pain, nausea, vomiting, diarrhea, and constipation, MS/Extremity: Negative for injury and deformity, Skin: Negative for injury, rash, and discoloration. 08:50 Constitutional: 08:50 ENT: Positive for sore throat, Negative for drainage from ear(s), hearing loss, nasal discharge, difficulty swallowing, difficulty handling secretions. 08:50 Neck: Positive for swollen nodes, Negative for injury or acute deformity. Exam: 08:50 Head/Face: Normocephalic, atraumatic. Eyes: Extra-ocular motions intact. Periorbital sb4 areas with no swelling, redness, or edema. 08:50 Cardiovascular: Regular rate and rhythm with a normal S1 and S2. 08:50 Abdomen/GI: Soft, non-tender, no distension. 08:50 Constitutional: The patient appears alert, awake, anxious, obese, uncomfortable. 08:50 Head/face: Noted is 08:50 ENT: Examination of the other ear shows no obvious abnormality, Examination of the other nostril shows no obvious abnormality, Posterior pharynx: Tonsils: bilaterally enlarged, with erythema, Uvula: normal, midline, swelling, that is moderate. 08:50 Respiratory: mild respiratory distress is noted, Respirations: labored breathing, Breath sounds: wheezing: expiratory is scattered. 14:22 ECG was reviewed by the Attending Physician. sb4 Vital Signs: 08:28 BP 170 / 125; Pulse 93; Resp 32; Pulse Ox 100% on R/A; ss 08:32 Temp 98.1(TE); ss 09:25 Weight 156.49 kg; Height 5 ft. 4 in. (162.56 cm); ph 10:09 BP 142 / 88; Pulse 79; Resp 14 S; Pulse Ox 89% on R/A; kc6 11:09 BP 141 / 94; Pulse 80; Resp 21 S; Pulse Ox 97% on R/A; kc6 12:09 BP 121 / 84; Pulse 83; Resp 22 S; Pulse Ox 100% on R/A; kc6 09:25 Body Mass Index 59.22 (156.49 kg, 162.56 cm) ph MDM: 08:25 Patient medically screened. kb 08:50 Differential diagnosis: Anxiety Reaction asthma, Pulmonary Embolism Sepsis. sb4 14:22 Antibiotic administration: Not indicated, the patient is already taking antibiotics. sb4 Data reviewed: vital signs, nurses notes, diagnostic data from outside facility, CBC, electrolytes, radiologic studies, lab test result(s), CBC, electrolytes, EKG, radiologic studies, CT scan, I have discussed the patient's presentation/case with the attending Emergency Department Physician;. Consideration of Admission/Observation Escalation of care including admission/observation considered. Care significantly affected by the following chronic conditions: Obesity. Medication response: albuterol nebulizer treatment(s) partially relieved the patient's wheezing. Response to treatment: the patient's symptoms have mildly improved after treatment, and as a result, I will discharge patient. 07/05 08:29 Order name: CBC w/o diff sb4 07/05 08:29 Order name: CMP sb4 07/05 08:29 Order name: Magnesium sb4 07/05 08:44 Order name: COVID-19/FLU A+B sb4 07/05 08:44 Order name: Strep sb4 07/05 08:44 Order name: [place] Screen Profile sb4 07/05 08:48 Order name: CBC without Diff; Complete Time: 09:06 EDMS 07/05 09:04 Order name: Comprehensive Metabolic Panel; Complete Time: 09:06 EDMS 07/05 09:04 Order name: Magnesium; Complete Time: 09:06 EDMS 07/05 09:07 Order name: Blood Culture Adult (2) sb4 07/05 09:07 Order name: Lactate w/ 2H reflex if indic. sb4 07/05 09:07 Order name: Protime (+inr) sb4 07/05 09:07 Order name: Ptt, Activated sb4 07/05 09:32 Order name: Urine --Ancillary (enter results) bd 07/05 09:07 Order name: Soft Tissue Neck W/Contr CT sb4 07/05 09:32 Order name: Urine Dipstick-Ancillary; Complete Time: 09:34 EDMS 07/05 09:38 Order name: Group A Streptococcus Rapid Sc; Complete Time: 09:39 EDMS 07/05 09:44 Order name: Protime (+INR); Complete Time: 09:58 EDMS 07/05 09:44 Order name: PTT, Activated Partial Thromb; Complete Time: 09:58 EDMS 07/05 10:06 Order name: Lactate w/ 2H reflex if indic.; Complete Time: 10:17 EDMS 07/05 10:10 Order name: CT; Complete Time: 10:17 EDMS 07/05 10:18 Order name: COVID-19/FLU A+B; Complete Time: 10:23 EDMS 07/05 10:18 Order name: Urine --Ancillary; Complete Time: 10:23 EDMS 07/05 10:19 Order name: [place] Screen; Complete Time: 10:23 EDMS 07/05 10:23 Order name: Chest Single View XRAY 4 07/05 10:33 Order name: DD 4 07/05 10:56 Order name: D-Dimer; Complete Time: 11:01 EDMS 07/05 12:20 Order name: RAD; Complete Time: 12:39 EDMS 07/05 12:45 Order name: Lactate Sepsis 2 HR Follow-up; Complete Time: 12:45 EDMS 07/05 08:29 Order name: IV Saline Lock; Complete Time: 08:42 sb4 07/05 08:30 Order name: Cardiac monitoring; Complete Time: 08:41 sb4 07/05 09:07 Order name: EKG; Complete Time: 09:08 sb4 07/05 09:07 Order name: Accucheck; Complete Time: 09:32 sb4 07/05 09:07 Order name: EKG - Nurse/Tech; Complete Time: 09:32 sb4 07/05 09:07 Order name: O2 Per Protocol; Complete Time: 09:10 sb4 07/05 09:07 Order name: O2 Sat Monitoring; Complete Time: 09:10 sb4 07/05 09:07 Order name: Vital Signs; Complete Time: 09:11 sb4 07/05 09:07 Order name: Urine Dipstick-Ancillary (obtain specimen); Complete Time: 09:32 sb4 07/05 09:07 Order name: Urine Test (obtain specimen); Complete Time: :32 sb4 EC:22 Rate is 97 beats/min. Rhythm is regular, Normal Sinus Rhythm. QRS [place] is Normal. [place] sb4 interval is normal. QRS interval is normal. QT interval is normal. No Q waves. T waves are Normal. No ST changes noted. Administered Medications: 08:41 Drug: Benadryl (diphenhydrAMINE) 25 mg Route: IVP; Site: right antecubital; kc6 12:34 Follow up: Response: No adverse reaction kc6 08:41 Drug: Pepcid (famotidine) 20 mg Route: IVP; Site: right antecubital; kc6 12:35 Follow up: Response: No adverse reaction kc6 08:41 Drug: Ativan (LORazepam) 0.5 mg Route: IVP; Site: right antecubital; kc6 12:35 Follow up: Response: No adverse reaction; Anxiety decreased kc6 08:41 Drug: Albuterol - atroVENT (ipratropium) (3:1) (2.5 mg - 0.5 mg) 3 ml Route: Nebulizer; ld1 12:36 Follow up: Response: No adverse reaction kc6 08:42 Drug: NS 0.9% 1000 ml Route: IV; Rate: 1 bolus; Site: right antecubital; kc6 14:44 Follow up: Response: No adverse reaction; IV Status: Completed infusion; IV Intake: kc6 1000ml 10:54 Drug: NS 0.9% 1000 ml Route: IV; Rate: 1 bolus; Site: right antecubital; kc6 14:44 Follow up: Response: No adverse reaction; IV Status: Completed infusion; IV Intake: kc6 1000ml 13:10 CANCELLED (Physician Discretion): Rocephin (cefTRIAXone) 1 grams IV at bolus once; kc6 Given slow IV push per pharmacy instructions 13:34 Drug: SOLU-Medrol (methylPrednisoLONE) 125 mg Route: IVP; Site: right antecubital; kc6 14:44 Follow up: Response: No adverse reaction kc6 Disposition Summary: 07/05/22 14:00 Discharge Ordered Location: Home sb4 Problem: new sb4 Symptoms: have improved sb4 Condition: Stable sb4 Diagnosis - Adverse reaction to antibiotic sb4 - Dyspnea sb4 Followup: sb4 - With: Private Physician - When: 2 - 3 days - Reason: Recheck today's complaints, Continuance of care, Re-evaluation by your physician Discharge Instructions: - Discharge Summary Sheet sb4 - Shortness of Breath, Adult, [id number] sb4 - Obesity, Adult, [id number] sb4 Forms: - Medication Reconciliation Form sb4 - Work release form ph - Thank You Letter sb4 - Antibiotic Education sb4 - Prescription Opioid Use sb4 Prescriptions: - Hydroxyzine HCl 50 mg Oral Tablet - take 1 tablet by ORAL route every 8 hours As needed; 20 tablet; Refills: 0, sb4 Product Selection Permitted Signatures: Dispatcher [employer] Jeniffer Allison, CRIMINAL JUSTICE FACULTY-C Cathy Cormier RN RN ss Palma Live RN RN ld1 Bibiana Espinoza RN RN kc6 Elisabeth Leon PA-C PARichie sb4 Corrections: (The following items were deleted from the chart) 08:53 08:32 Patient reports that she was diagnosed with strep throat on Sunday and was sb4 prescribed antibiotics and prednisone. She states that she was . sb4 13:10 12:48 Rocephin (cefTRIAXone) 1 grams IV at bolus once; Given slow IV push per pharmacy kc6 instructions ordered. sb4
--- NOTE | 2022-07-05 14:01 | ER ---
Nurse's Notes [facility] Name: Vivek Chino Age: 37 yrs Sex: Female : 1985 Arrival Date: 07/05/2022 Time: 08:24 Bed 4 Private MD: Diagnosis: Adverse reaction to antibiotic;Dyspnea Presentation: 07/05 08:28 Chief complaint: Patient states: breathing difficulty that began yesterday, is worse ss today. Pt reports she recently started taking Prednisone for a strep infection and believes it may be a reaction to that. Coronavirus screen: Client denies travel out of the [place] in the last 14 days. Ebola Screen: Patient denies exposure to infectious person. Patient denies travel to an Ebola-affected area in the 21 days before illness onset. Initial Sepsis Screen: Does the patient meet any 2 criteria? No. Patient's initial sepsis screen is negative. Does the patient have a suspected source of infection? No. Patient's initial sepsis screen is negative. Risk Assessment: Do you want to hurt yourself or someone else? Patient reports no desire to harm self or others. Onset of symptoms was July 04, 2022. 08:28 Method Of Arrival: Wheelchair ss 08:28 Acuity: CARI 2 ss Historical: - Allergies: 08:30 Clindamycin; ss 09:11 Levaquin; kc6 - PMHx: 10:07 None; kc6 - PSHx: 08:30 Adenoid excision; section; ss - Immunization history:: Adult Immunizations unknown. - Social history:: Smoking status: Patient denies any tobacco usage or history of. Screenin:45 [facility] ED Fall Risk Assessment (Adult) History of falling in the last 3 months, kc6 including since admission No falls in past 3 months (0 pts) Confusion or Disorientation No (0 pts) Intoxicated or Sedated No (0 pts) Impaired Gait No (0 pts) Mobility Assist Device Used No (0 pt) Altered Elimination No (0 pt) Score/Fall Risk Level 0 - 2 = Low Risk Oriented to surroundings, Maintained a safe environment, Educated pt \T\ family on fall prevention, incl call for assistance when getting out of bed, Assessed \T\ reinforced patient's understanding of fall precautions, Hourly rounding (assess needs \T\ fall precautionary measures) done. Abuse screen: Denies threats or abuse. Denies injuries from another. Nutritional screening: No deficits noted. Tuberculosis screening: No symptoms or risk factors identified. Assessment: 08:44 General: Appears distressed, uncomfortable, obese, Behavior is anxious, crying. Pain: kc6 Denies pain. Neuro: Jones Agitation-Sedation Scale (RASS): +1 Restless Level of Consciousness is awake, alert, obeys commands, Oriented to person, place, time, situation, Appropriate for age. Cardiovascular: Heart tones S1 S2 present Capillary refill < 3 seconds Rhythm is sinus rhythm. Respiratory: Airway is patent Trachea midline Respiratory effort is even, labored, gasping, using tripod position, Respiratory pattern is symmetrical, tachypnea Breath sounds are clear bilaterally. GI: No signs and/or symptoms were reported involving the gastrointestinal system. : No signs and/or symptoms were reported regarding the genitourinary system. EENT: No signs and/or symptoms were reported regarding the EENT system. Derm: No signs and/or symptoms reported regarding the dermatologic system. Skin is intact, Skin is pink, warm \T\ dry. Musculoskeletal: No signs and/or symptoms reported regarding the musculoskeletal system. Circulation, motion, and sensation intact. Capillary refill < 3 seconds, Range of motion: intact in all extremities. 09:44 Reassessment: Patient appears in no apparent distress at this time. No changes from kc6 previously documented assessment. Patient and/or family updated on plan of care and expected duration. Pain level reassessed. Patient is alert, oriented x 3, equal unlabored respirations, skin warm/dry/pink. Patient states feeling better. Patient states symptoms have improved. 10:44 Reassessment: Patient appears in no apparent distress at this time. No changes from kc6 previously documented assessment. Patient and/or family updated on plan of care and expected duration. Pain level reassessed. Patient is alert, oriented x 3, equal unlabored respirations, skin warm/dry/pink. 11:44 Reassessment: Patient appears in no apparent distress at this time. No changes from kc6 previously documented assessment. Patient and/or family updated on plan of care and expected duration. Pain level reassessed. Patient is alert, oriented x 3, equal unlabored respirations, skin warm/dry/pink. 12:44 Reassessment: Patient appears in no apparent distress at this time. No changes from kc6 previously documented assessment. Patient and/or family updated on plan of care and expected duration. Pain level reassessed. Patient is alert, oriented x 3, equal unlabored respirations, skin warm/dry/pink. 13:44 Reassessment: Patient appears in no apparent distress at this time. No changes from kc6 previously documented assessment. Patient and/or family updated on plan of care and expected duration. Pain level reassessed. Patient is alert, oriented x 3, equal unlabored respirations, skin warm/dry/pink. 14:44 Reassessment: Patient appears in no apparent distress at this time. No changes from kc6 previously documented assessment. Patient and/or family updated on plan of care and expected duration. Pain level reassessed. Patient is alert, oriented x 3, equal unlabored respirations, skin warm/dry/pink. Vital Signs: 08:28 BP 170 / 125; Pulse 93; Resp 32; Pulse Ox 100% on R/A; ss 08:32 Temp 98.1(TE); ss 09:25 Weight 156.49 kg; Height 5 ft. 4 in. (162.56 cm); ph 10:09 BP 142 / 88; Pulse 79; Resp 14 S; Pulse Ox 89% on R/A; kc6 11:09 BP 141 / 94; Pulse 80; Resp 21 S; Pulse Ox 97% on R/A; kc6 12:09 BP 121 / 84; Pulse 83; Resp 22 S; Pulse Ox 100% on R/A; kc6 09:25 Body Mass Index 59.22 (156.49 kg, 162.56 cm) ph ED Course: 08:24 Patient arrived in ED. rg4 08:25 Jeniffer Lizarraga FNP-C is PHCP. kb 08:25 Varinder Eagle MD is Attending Physician. kb 08:26 Elisabeth Leon PA-C is PHCP. kb 08:29 Bibiana Espinoza, EBONY is Primary Nurse. kc6 08:30 Triage completed. ss 08:30 Arm band placed on right wrist. ss 08:43 Magnesium Sent. kc6 08:43 CMP Sent. kc6 08:43 CBC w/o diff Sent. kc6 08:46 Patient has correct armband on for positive identification. Placed in gown. Bed in low kc6 position. Call light in reach. Side rails up X2. 09:32 Lactate w/ 2H reflex if indic. Sent. ph 09:32 Protime (+inr) Sent. ph 09:32 Ptt, Activated Sent. ph 09:32 Stone Screen Profile Sent. ph 09:32 Strep Sent. ph 09:32 COVID-19/FLU A+B Sent. ph 09:32 Inserted saline lock: 20 gauge in left antecubital area, using aseptic technique. Blood ph collected. 10:07 Blood Culture Adult (2) Sent. kc6 14:43 No provider procedures requiring assistance completed. IV discontinued, intact, kc6 bleeding controlled, No redness/swelling at site. Pressure dressing applied. Administered Medications: 08:41 Drug: Benadryl (diphenhydrAMINE) 25 mg Route: IVP; Site: right antecubital; kc6 12:34 Follow up: Response: No adverse reaction kc6 08:41 Drug: Pepcid (famotidine) 20 mg Route: IVP; Site: right antecubital; kc6 12:35 Follow up: Response: No adverse reaction kc6 08:41 Drug: Ativan (LORazepam) 0.5 mg Route: IVP; Site: right antecubital; kc6 12:35 Follow up: Response: No adverse reaction; Anxiety decreased kc6 08:41 Drug: Albuterol - atroVENT (ipratropium) (3:1) (2.5 mg - 0.5 mg) 3 ml Route: Nebulizer; ld1 12:36 Follow up: Response: No adverse reaction kc6 08:42 Drug: NS 0.9% 1000 ml Route: IV; Rate: 1 bolus; Site: right antecubital; kc6 14:44 Follow up: Response: No adverse reaction; IV Status: Completed infusion; IV Intake: kc6 1000ml 10:54 Drug: NS 0.9% 1000 ml Route: IV; Rate: 1 bolus; Site: right antecubital; kc6 14:44 Follow up: Response: No adverse reaction; IV Status: Completed infusion; IV Intake: kc6 1000ml 13:10 CANCELLED (Physician Discretion): Rocephin (cefTRIAXone) 1 grams IV at bolus once; kc6 Given slow IV push per pharmacy instructions 13:34 Drug: SOLU-Medrol (methylPrednisoLONE) 125 mg Route: IVP; Site: right antecubital; kc6 14:44 Follow up: Response: No adverse reaction kc6 Medication: 14:43 VIS not applicable for this client. kc6 Intake: 14:44 IV: 1000ml; Total: 1000ml. kc6 14:44 IV: 1000ml; Total: 2000ml. kc6 Outcome: 14:00 Discharge ordered by . sb4 14:43 Discharged to home ambulatory. kc6 14:43 Condition: stable 14:43 Discharge instructions given to patient, Instructed on discharge instructions, follow up and referral plans. medication usage, Demonstrated understanding of instructions, follow-up care, medications, Prescriptions given X 1. 14:45 Patient left the ED. kc6 Signatures: Jeniffer Lizarraga, REPORT PROGRAMMER-C REPORT PROGRAMMER-Cathy Foy, RN RN ss Rachell Gonzalez RN Aurea Cerna ph rg4 Palma Live RN RN [email or web address] Bibiana Espinoza RN RN kc6 Elisabeth Leon, PA-C PA-Antonio sb4
[2022-07-05 15:35] VITALS: TEMP 98.1
[2022-07-05 15:42] VITALS: BP 121/84; O2SAT 100
--- NOTE | 2022-07-06 11:54 | EKG ---
Test Date: 2022-07-05 Test Time: 09:25:23 Market Analyst: VIVIANA MEASUREMENT RESULTS: Intervals: Rate: 97 LA: 160 QRSD: 82 QT: 360 QTc: 457 [place]: P: 43 LA: 160 QRS: 16 T: 49 INTERPRETIVE STATEMENTS: Normal sinus rhythm Cannot rule out Anterior infarct, age undetermined Abnormal ECG No previous ECG available for comparison Electronically Signed On 07-06-22 11:51:47 TEXTILE BROKER by Agapito Tang
== END 2022-07-05 14:45 | disposition home or self-care (01) ==
LOC: ER 08:23
DX: R06.00 Dyspnea, unspecified (principal); T36.8X5A Adverse effect of other systemic antibiotics, initial encounter; Z88.1 Allergy status to other antibiotic agents; Z88.3 Allergy status to other anti-infective agents
CPT/HCPCS: 0240U; 36415; 70491; 71045; 80053; 81003; 81025; 83605; 83735; 85027; 85379; 85610; 85730; 86308; 87040; 87070; 87081; 93005; J1200; J2930; J7030; J7613; J7644; Q9967